=== PATIENT | female | born 1995 | race Caucasian/White ===

== ENCOUNTER 2019-06-04 19:06 | Emergency (ER) | payer MEDICAID, SELFPAY ==
[2019-06-04 19:43] VITALS: BP 107/72; PULSE 120; RESP 18; TEMP 38.4; O2SAT 97; BMI 24.3
[2019-06-04 21:40] LABS: Basophils % 0.2 %; Hematocrit 36.5 % (37.0-47.0); Lymphocytes # 0.4 10^3/uL (0.8-4.8); Lymphocytes % 6.4 %; Mean Corpuscular HGB Conc 32.9 g/dL (30.0-36.0); Mean Corpuscular Hemoglobin 30.5 pg (28.0-34.0); Mean Corpuscular Volume 92.6 fL (81-99); Mean Platelet Volume 9.9 fL (7.4-10.4); Monocytes # 0.2 10^3/uL (0.2-0.9); Neutrophils # 5.4 10^3/uL (1.8-7.7); Neutrophils % 90.1 %; Nucleated Red Blood Cells % 0 %; Platelet Count 264 10^3/cmm (130-400); Red Blood Count 3.94 10^6/uL (4.1-5.3); Red Cell Distribution Width 12.6 % (12.1-15.1); White Blood Count 5.9 10^3/uL (4.0-10.0)
[2019-06-04 21:56] LABS: Alanine Aminotransferase 23 U/L (0-33); Albumin Level 4.4 g/dL (3.5-5.2); Alkaline Phosphatase 79 IU/L (35-105); Anion Gap 17.9 (5-19); Aspartate Amino Transferase 16 U/L (0-32); Blood Urea Nitrogen 8 mg/dL (6-20); Calcium 8.8 mg/dL (8.5-10.5); Carbon Dioxide 23 mmol/L (22-29); Chloride 98 mmol/L (98-107); Globulin 3.2 g/dL (1.3-4.6); Glomerular Filtration Rate 101.1 mL/min (90-130); Glucose 118 mg/dL (65-115); Potassium 3.9 mmol/L (3.5-5.1); Sodium 135 mmol/L (136-145); Total Bilirubin 0.6 mg/dL (0.15-1.2); Total Protein 7.6 g/dL (6.6-8.7)
--- NOTE | 2019-06-04 22:03 | ED_ITS ---
HPI - Fever General: Chief Complaint: Fever Stated Complaint: vomiting Time Seen by Provider: 06/04/19 21:47 History of Present Illness: HPI Narrative: Patient is a 24-year-old female comes into the ED with a fever, cough and nasal congestion. Patient states that symptoms started today when she woke up. Been taking Tylenol today and it has helped reduce the fevers but her temperature then goes back up again. She describes the cough as nonproductive, dry and mild. Nasal drainage started this morning as well. She did say she had one episode of emesis today. She is currently on her period and having some mild cramping. Associated symptoms: Reports nasal congestion and vomiting; Deny abdominal pain, back/flank pain, chills, chest pain, diarrhea, dysuria, headache(s) or nausea Review of Systems Const: Reports: fever; Denies: chills or fatigue Eyes: Denies: change in vision or eye discomfort ENMT: Reports: nasal discharge and nasal congestion; Denies: throat pain or painful swallowing Card: Denies: chest pain, palpitations, edema, swelling of feet/ankles, shortness of breath on exertion or shortness of breath when lying down Resp: Reports: non-productive cough; Denies: shortness of breath or productive cough GI: Reports: vomiting; Denies: abdominal pain, nausea, diarrhea, constipation or blood in stool : Denies: flank pain, painful urination or blood in urine Musc: Denies: neck pain, back pain or extremity swelling Skin/Breast: Denies: rash or new lesion Neuro: Denies: headache, numbness in extremities or weakness in extremities PFS ED PFSH: Social History Smoking and tobacco status: never smoked Female Reproductive History: Date of last menstrual period: 06/04/19 Physical Exam Const: COMMON NORMALS: oriented x3 HENMT: COMMON NORMALS: normocephalic HEAD & SCALP: normocephalic MOUTH: oral and palatal mucosa normal THROAT: posterior oropharynx normal and uvula midline Neck/C-Spine: COMMON NORMALS: supple GENERAL: Yes normal visual inspection Resp: COMMON NORMALS: normal respiratory effort, no retractions, no use of accessory muscles and clear to auscultation bilaterally AUSCULTATION: clear to auscultation bilaterally Cardio: COMMON NORMALS: regular rate, regular rhythm, S1 normal heart sound, S2 normal heart sound, no gallops, no clicks, no murmurs and peripheral pulses 2+ throughout RATE: regular rate RHYTHM: regular rhythm HEART SOUNDS: S1 normal and S2 normal PERIPHERAL PULSES: pulses 2+ throughout GI: COMMON NORMALS: normal to inspection, nondistended, normoactive bowel sounds, soft to palpation, non-tender and no masses PALPATION: Yes soft : COMMON NORMALS: Yes no CVA tenderness BLADDER/KIDNEY EXAM: Yes no CVA tenderness Back/Pelvis: COMMON NORMALS: no CVA tenderness Extremity: COMMON NORMALS: normal to inspection and normal capillary refill Neuro: COMMON NORMALS: oriented x3 and moves all extremities Skin: COMMON NORMALS: no rashes or lesions noted GENERAL SKIN EXAM: no rashes or lesions noted and dry skin Course Vital Signs: Vital signs: Vital Signs Temperature 100 F H 06/04/19 23:32 Pulse Rate 113 H 06/04/19 23:32 Respiratory Rate 16 06/04/19 23:32 Blood Pressure 101/59 06/04/19 23:32 Pulse Oximetry 97 06/04/19 23:32 MDM - Fever Lab Data: Attestation: I reviewed the patient's lab results. Labs: Lab Results 06/04/19 06/04/19 06/04/19 Range/Units 21:27 21:27 21:40 WBC 5.9 (4.0-10.0) 10^3/ uL RBC 3.94 L (4.1-5.3) 10^6/u L Hgb 12.0 (11.5-15.3) g/dL Hct 36.5 L (37.0-47.0) % MCV 92.6 (81-99) fL MCH 30.5 (28.0-34.0) pg MCHC 32.9 (30.0-36.0) g/dL RDW 12.6 (12.1-15.1) % Plt Count 264 (130-400) 10^3/c mm MPV 9.9 (7.4-10.4) fL Neut % (Auto) 90.1 % Lymph % (Auto) 6.4 % [place] % (Auto) 3.0 % Eos % (Auto) 0.0 % Baso % (Auto) 0.2 % Neut # (Auto) 5.4 (1.8-7.7) 10^3/u L Lymph # (Auto) 0.4 L (0.8-4.8) 10^3/u L [place] # (Auto) 0.2 (0.2-0.9) 10^3/u L Eos # (Auto) 0.0 (0.0-0.8) 10^3/u L Baso # (Auto) 0.0 (0.0-0.1) 10^3/u L Nucleated RBC % (a uto) 0 % Nucleated RBCs # 0.0 /100WBC Sodium 135 L (136-145) mmol/L Potassium 3.9 (3.5-5.1) mmol/L Chloride 98 (98-107) mmol/L Carbon Dioxide 23 (22-29) mmol/L Anion Gap 17.9 (5-19) BUN 8 (6-20) mg/dL Creatinine 0.7 (0.5-0.9) mg/dL GFR Calculation 101.1 (90-130) mL/min Glucose 118 H (65-115) mg/dL Calcium 8.8 (8.5-10.5) mg/dL Total Bilirubin 0.6 (0.15-1.2) mg/dL AST 16 (0-32) U/L ALT 23 (0-33) U/L Alkaline Phosphata se 79 (35-105) IU/L Total Protein 7.6 (6.6-8.7) g/dL Albumin 4.4 (3.5-5.2) g/dL Globulin 3.2 (1.3-4.6) g/dL HCG, Qual (Negative) Urine Color (Yellow) Urine Appearance (CLEAR) Urine pH (5-7) Ur Specific Gravit y (1.005-1.030) Urine Protein (Negative) Urine Glucose (UA) (Normal) Urine Ketones (Negative) Urine Blood (Negative) Urine Nitrate (Negative) Urine Bilirubin (NEGATIVE) Urine Urobilinogen (Negative) mg/dL Ur Leukocyte Dolores ase (Negative) Urine RBC (0-2) /hpf Urine WBC (0-5) /hpf Ur Squamous Epith Cells (0-5) Urine Bacteria (NONE) Urine Mucus Influenza Type A A g Negative (Negative) POC Influenza B Ag Negative (Negative) 06/04/19 06/04/19 Range/Units 22:33 22:33 WBC (4.0-10.0) 10^3/ uL RBC (4.1-5.3) 10^6/u L Hgb (11.5-15.3) g/dL Hct (37.0-47.0) % MCV (81-99) fL MCH (28.0-34.0) pg MCHC (30.0-36.0) g/dL RDW (12.1-15.1) % Plt Count (130-400) 10^3/c mm MPV (7.4-10.4) fL Neut % (Auto) % Lymph % (Auto) % [place] % (Auto) % Eos % (Auto) % Baso % (Auto) % Neut # (Auto) (1.8-7.7) 10^3/u L Lymph # (Auto) (0.8-4.8) 10^3/u L [place] # (Auto) (0.2-0.9) 10^3/u L Eos # (Auto) (0.0-0.8) 10^3/u L Baso # (Auto) (0.0-0.1) 10^3/u L Nucleated RBC % (a uto) % Nucleated RBCs # /100WBC Sodium (136-145) mmol/L Potassium (3.5-5.1) mmol/L Chloride (98-107) mmol/L Carbon Dioxide (22-29) mmol/L Anion Gap (5-19) BUN (6-20) mg/dL Creatinine (0.5-0.9) mg/dL GFR Calculation (90-130) mL/min Glucose (65-115) mg/dL Calcium (8.5-10.5) mg/dL Total Bilirubin (0.15-1.2) mg/dL AST (0-32) U/L ALT (0-33) U/L Alkaline Phosphata se (35-105) IU/L Total Protein (6.6-8.7) g/dL Albumin (3.5-5.2) g/dL Globulin (1.3-4.6) g/dL HCG, Qual Negative (Negative) Urine Color Yellow (Yellow) Urine Appearance Clear (CLEAR) Urine pH 5 (5-7) Ur Specific Gravit y 1.010 (1.005-1.030) Urine Protein Neg (Negative) Urine Glucose (UA) Norm (Normal) Urine Ketones 2+ H (Negative) Urine Blood 3+ H (Negative) Urine Nitrate Negative (Negative) Urine Bilirubin Neg (NEGATIVE) Urine Urobilinogen Norm (Negative) mg/dL Ur Leukocyte Dolores ase Negative (Negative) Urine RBC 0-4 H (0-2) /hpf Urine WBC 0-4 H (0-5) /hpf Ur Squamous Epith Cells 5-10 H (0-5) Urine Bacteria 1+ H (NONE) Urine Mucus 2+ Influenza Type A A g (Negative) POC Influenza B Ag (Negative) Discharge Plan Discharge Patient Disposition: Home, Self-Care Clinical Impression: Upper respiratory infection with cough and congestion Condition: Stable Discharge Orders: Discharge Order (Routine); Ordered 06/04/19 Ordered By: Suman Duarte Referrals: Ant Greene FNP [Primary Care Provider] - Lionel Rees MD [Family Provider] - Discharge Diet: Regular Discharge Activity: Resume usual activity Patient Instructions: Upper Respiratory Infection - Adult Activity Restrictions/Additional Instructions: Follow-up with PCP in 7 days for reevaluation. Drink plenty of fluids and stay hydrated. Take Tylenol to help with fevers. He can take [id number] nasal decongestants such as Mucinex to help with nasal congestion. Discharge Date/Time: 06/04/19 23:33 Coding Level of Care Code ED Technology Development Intern for Marcella Fwd Exam Comprehensive
[2019-06-04 22:08] LABS: Influenza A by IFA Negative (Negative); Influenza B by IFA Negative (Negative)
[2019-06-04 22:44] LABS: HCG Qualitative Urine. Negative (Negative)
[2019-06-04 22:52] LABS: Add Urine Microscopic? YES; Bacteria Urine 1+; Bilirubin Urine Neg (NEGATIVE); Blood Urine 3+ (Negative); Glucose Urine UA Norm (Normal); Ketones Urine 2+ (Negative); Leukocyte Esterase Urine Negative (Negative); Mucus Urine 2+; Nitrate Urine Negative (Negative); Protein Urine Neg (Negative); RBC Urine 0-4 /hpf (0-2); Urine Appearance Clear (CLEAR); Urine Color Yellow (Yellow); Urobilinogen Urine Norm (Negative); WBC Urine 0-4 /hpf (0-5); pH Urine 5 (5-7)
[2019-06-04 22:56] VITALS: BP 112/73; PULSE 74; RESP 16; TEMP 37.5; O2SAT 96
[2019-06-04 23:32] VITALS: BP 101/59; PULSE 113; RESP 16; TEMP 37.7; O2SAT 97
== END 2019-06-04 23:33 | disposition home or self-care (01) ==
PROVIDERS: Family Medicine; Emergency Provider Physician Assistant; Family Provider Family Medicine; PCP Nurse Practitioner Family
DX: J06.9 Acute upper respiratory infection, unspecified (principal); R05 Cough; R09.81 Nasal congestion
CPT/HCPCS: 80053; 81001; 81025; 85025; 87804; 99281; 99283; A9270

== ENCOUNTER 2019-11-14 19:02 | Emergency (ER) | payer MEDICAID, SELFPAY ==
[2019-11-14 19:05] VITALS: BP 118/79; PULSE 79; RESP 17; TEMP 36.8; O2SAT 99; BMI 24.2
--- NOTE | 2019-11-14 19:30 | USR_ITS ---
PROCEDURE INFORMATION: Exam: US , Limited Exam date and time: 11/14/2019 8:45 PM Age: 24 years old Clinical indication: complicated by abdominal or pelvic pain; Right lower quadrant; First trimester; Gestational age or lmp: 6w6d; TECHNIQUE: Imaging protocol: Real-time ultrasound of the maternal uterus with image documentation. Exam focused on the clinical indication. COMPARISON: [facility] OB Follow up 01/27/2019 4:22 PM FINDINGS: Gestation: Single live IUP heart rate: 138 bpm BIOMETRY: Gestational age (AUA): 6 week 6 day Estimated due date (AUA): Estimated due date: 07/03/2020 Cavalero-Rump length: 0.88 cm 6 week 6 day MATERNAL: Cervix: Cervix is 3.8 cm in length and closed. US/US OB limited [id number] IMPRESSION: Single live IUP approximately 6 weeks 6 days gestational age.
[2019-11-14 20:12] LABS: Bacteria Urine TRACE; Bilirubin Urine Neg (NEGATIVE); Blood Urine Neg (Negative); Glucose Urine UA Norm (Normal); Ketones Urine Negative (Negative); Leukocyte Esterase Urine Negative (Negative); Nitrate Urine Negative (Negative); Protein Urine Neg (Negative); RBC Urine RARE /hpf (0-2); Squamous Epithelial Cell Urine RARE (0-5); Urine Appearance Clear (CLEAR); Urine Color Straw (Yellow); Urobilinogen Urine Norm (Negative); WBC Urine RARE /hpf (0-5); pH Urine 6.5 (5-7)
[2019-11-14 20:26] LABS: Basophils % 0.6 %; Eosinophils # 0.1 10^3/uL (0.0-0.8); Eosinophils % 1.6 %; Hematocrit 35.4 % (37.0-47.0); Hemoglobin 11.5 g/dL (11.5-15.3); Lymphocytes # 1.8 10^3/uL (0.8-4.8); Lymphocytes % 28.3 %; Mean Corpuscular HGB Conc 32.5 g/dL (30.0-36.0); Mean Corpuscular Hemoglobin 31.6 pg (28.0-34.0); Mean Corpuscular Volume 97.3 fL (81-99); Mean Platelet Volume 10.2 fL (7.4-10.4); Monocytes # 0.4 10^3/uL (0.2-0.9); Monocytes % 5.6 %; Neutrophils # 4.01 10^3/uL (1.8-7.7); Neutrophils % 63.7 %; Nucleated Red Blood Cells % 0 %; Platelet Count 280 10^3/cmm (130-400); Red Blood Count 3.64 10^6/uL (4.1-5.3); Red Cell Distribution Width 12.4 % (12.1-15.1); White Blood Count 6.3 10^3/uL (4.0-10.0)
[2019-11-14 20:44] LABS: Alanine Aminotransferase 17 U/L (0-33); Albumin Level 4.8 g/dL (3.5-5.2); Alkaline Phosphatase 58 IU/L (35-105); Anion Gap 14.1 (5-19); Aspartate Amino Transferase 15 U/L (0-32); Blood Urea Nitrogen 8 mg/dL (6-20); Calcium 9.6 mg/dL (8.5-10.5); Carbon Dioxide 25 mmol/L (22-29); Chloride 101 mmol/L (98-107); Globulin 2.7 g/dL (1.3-4.6); Glomerular Filtration Rate 120.8 mL/min (90-130); Glucose 88 mg/dL (65-115); Lipase 32 U/L (13-60); Osmolality Calculated 277 mOsm/kg (285-295); Potassium 4.1 mmol/L (3.5-5.1); Sodium 136 mmol/L (136-145); Total Bilirubin 0.4 mg/dL (0.15-1.2); Total Protein 7.5 g/dL (6.6-8.7)
== END 2019-11-14 23:40 | disposition left against medical advice (07) ==
LOC: ER 20:55
PROVIDERS: Emergency Medicine; Emergency Provider Emergency Medicine; PCP Family Medicine
DX: Z53.21 Procedure and treatment not carried out due to patient leaving prior to being seen by health care provider (principal)
CPT/HCPCS: 36415; 76815; 80053; 81001; 83690; 84702; 85025; 86900; 99281; 99283

== ENCOUNTER → 2020-01-08 13:26 | Outpatient (BNVA) | payer MEDICAID, SELFPAY | PROVIDERS: PCP Family Medicine; Visit Provider Nurse Practitioner | DX: Z20.828 Contact with and (suspected) exposure to other viral communicable diseases (principal) | CPT/HCPCS: 87635 ==

== ENCOUNTER 2020-04-20 21:20 | Outpatient (CLI) | payer MEDICAID, SELFPAY ==
[2020-04-20] VITALS (7 sets, daily range): PULSE 84–99; O2SAT 97–99; BMI 27.6
== END 2020-04-20 22:25 | disposition home or self-care (01) ==
LOC: OPOB 21:22 → OBGYN 22:07
PROVIDERS: PCP Family Medicine; Visit Provider Family Medicine
DX: O26.899 Other specified pregnancy related conditions, unspecified trimester (principal); Z3A.00 Weeks of gestation of pregnancy not specified; R42 Dizziness and giddiness; R06.02 Shortness of breath
CPT/HCPCS: 99211

== ENCOUNTER 2020-05-20 17:05 | Outpatient (CLI) | payer MEDICAID, SELFPAY ==
[2020-05-20 17:05] VITALS: BMI 29.7
[2020-05-20 17:18] VITALS: BP 119/61; PULSE 110
[2020-05-20 17:24] VITALS: TEMP 36.7
[2020-05-20 17:33] VITALS: BP 114/66; PULSE 107
[2020-05-20 17:39] VITALS: RESP 17
== END 2020-05-20 17:48 | disposition home or self-care (01) ==
LOC: OPOB 17:09 → OBGYN 17:11
PROVIDERS: PCP Family Medicine; Visit Provider Family Medicine
DX: O26.899 Other specified pregnancy related conditions, unspecified trimester (principal); Z3A.00 Weeks of gestation of pregnancy not specified; R10.9 Unspecified abdominal pain
CPT/HCPCS: 59025; 99211

== ENCOUNTER 2020-06-07 10:40 | Outpatient (CLI) | payer MEDICAID, SELFPAY ==
[2020-06-07 10:59] VITALS: BMI 28.8
[2020-06-07 11:00] VITALS: RESP 18; TEMP 37.1
[2020-06-07 11:02] VITALS: BP 136/82; PULSE 111
[2020-06-07 11:03] VITALS: TEMP 37.1
[2020-06-07 11:32] VITALS: BP 128/77; PULSE 99
[2020-06-07 11:42] VITALS: BP 128/77; PULSE 99; RESP 18; TEMP 37.1
== END 2020-06-07 11:40 | disposition home or self-care (01) ==
LOC: OPOB 10:46 → OBGYN 10:47
PROVIDERS: PCP Family Medicine; Visit Provider Family Medicine
DX: O26.899 Other specified pregnancy related conditions, unspecified trimester (principal); Z3A.00 Weeks of gestation of pregnancy not specified; R10.9 Unspecified abdominal pain
CPT/HCPCS: 99211

== ENCOUNTER 2020-06-18 19:05 | Inpatient (IN) | payer MEDICAID, SELFPAY ==
[2020-06-18] VITALS (15 sets, daily range): BP systolic 108–130; BP diastolic 59–74; PULSE 67–93; RESP 15; TEMP 36.3–36.4; O2SAT 96; BMI 29.2
[2020-06-18 19:58] LABS: Basophils % 0.5 %; Eosinophils % 0.5 %; Hematocrit 31.8 % (37.0-47.0); Hemoglobin 10.5 g/dL (11.5-15.3); Lymphocytes # 1.5 10^3/uL (0.8-4.8); Lymphocytes % 26.1 %; Mean Corpuscular Hemoglobin 31.5 pg (28.0-34.0); Mean Corpuscular Volume 95.5 fL (81-99); Mean Platelet Volume 10.6 fL (7.4-10.4); Monocytes # 0.3 10^3/uL (0.2-0.9); Neutrophils # 3.78 10^3/uL (1.8-7.7); Neutrophils % 67.2 %; Nucleated Red Blood Cells % 0 %; Platelet Count 244 10^3/cmm (130-400); Red Blood Count 3.33 10^6/uL (4.1-5.3); Red Cell Distribution Width 13.2 % (12.1-15.1); White Blood Count 5.6 10^3/uL (4.0-10.0)
[2020-06-18] MEDS: miSOPROStol 100 mcg tablet 25 MCG VAGINAL (20:46)
[2020-06-19] VITALS (101 sets, daily range): BP systolic 86–144; BP diastolic 51–92; PULSE 45–109; RESP 15–18; TEMP 36.3–37.1; O2SAT 89–100
[2020-06-19] MEDS: lactated ringers 1,000 ML 999 ML IV (01:05)
[2020-06-19] MEDS: dextrose 5%-lactated ringers 1,000 ML 125 ML IV (02:00)
--- NOTE | 2020-06-19 02:33 | ANES.PREANE2 ---
Pre-Anesthetic Assessment Pre-Anesthetic Assessment: Height/Weight: Height 1.63 m Weight 77.111 kg Temp Pulse Resp BP Pulse Ox 97.3 F L 82 15 116/62 96 06/18/20 23:45 06/19/20 02:30 06/18/20 19:52 06/19/20 02:30 06/19/20 02:28 Preop Diagnosis: Active Labor Proposed Procedure: Labor Epidural Familial anesthetic complications: none Was Beta Syl taken within 24 hours: N/A Last intake: clear liquids 0100 meal 1900 Social: Social History: No alcohol and No tobacco Exam: Pre-Anes Outpt Exam: alert, oriented x 3 and clear to auscultation bilaterally Airway: Submandibular: WNL Cervical ROM: WNL MP: 1 Dentition: Full History/ROS: No significant history except as noted Pulmonary: Pulmonary: None reported CV/HEM: CV/HEM: None reported : : None reported Hepatic: Hepatic: None reported GI: Comments: cholestasis Metabolic: Metabolic: None reported Musc/skel: Musc/skel: None reported Neuropsych: Neuropsych: Anxiety Anesthetic Plan: ASA status: 2 Anesthesia: Anesthesia Evaluation and Regional (specify below) Other: labor epidural Risk of > 500 ml blood loss (7ml/kg in children): No Meds/Allergies Current Medications: Current Medications Generic Name Dose Route Start Last Admin Trade Name Freq PRN Reason Stop Dose Admin Ropivacaine 200 mg in 100 mls @ 13 mls/hr 06/19/20 00:47 06/19/20 02:30 Naropin Premix EPIDURAL 11 mls/hr .Q7H42M PRN Administration PAIN Lactated Ringer's 1,000 mls @ 999 m ls/hr 06/19/20 00:47 06/19/20 01:05 Lactated Ringers IV 999 mls/hr .Q1H1M PRN Administration See label comment s Misoprostol 25 mcg 06/18/20 19:58 06/18/20 20:46 Misoprostol 100 Mcg Tablet VAGINAL 25 mcg ONCE PRN Administration Induction PFSH Anesthesia PFSH: Social History Smoking and tobacco status: never smoked Female Reproductive History: Date of last menstrual period: 09/26/19 : 8 Data Anesthesia CBC & Chem 7: 06/18/20 19:27 Other Labs: Laboratory Results - last 48 hr 06/18/20 19:27 WBC 5.6 RBC 3.33 L Hgb 10.5 L Hct 31.8 L MCV 95.5 MCH 31.5 MCHC 33.0 RDW 13.2 Plt Count 244 MPV 10.6 H Neut % (Auto) 67.2 Lymph % (Auto) 26.1 [place] % (Auto) 5.0 Eos % (Auto) 0.5 Baso % (Auto) 0.5 Neut # (Auto) 3.78 Lymph # (Auto) 1.5 [place] # (Auto) 0.3 Eos # (Auto) 0.0 Baso # (Auto) 0.0 Nucleated RBC % (auto) 0 Nucleated RBCs # 0.0 Cardiac Studies: No Data to Display
--- NOTE | 2020-06-19 02:37 | ANES.PROC ---
Anesthesia Procedures Procedure/Date: 06/19/20 Procedure Narrative: Epidural: Time Out Performed: Yes Consents Signed: Procedure Consent Consent: requested by attending/covering physician, from patient, risks and benefits reviewed and patient agrees to proceed Lumbar Level: L2-L3 Epidural position: sitting Epidural procedure: sterile prep of area, 1% lidocaine to numb the area, 18 g needle, negative for paresthesia passed, test dose given, 1.5% xylocaine 1:200k epi, no systemic response, L.U.D. no apparent complications and 0.2% Ropiavacaine @ mls/hr (11) Other Information: LUL 7cm catheter threaded to 13cm
[2020-06-19] MEDS: oxytocin 30 UNIT/500 ML BAG 600 UNIT IV (05:43)
--- NOTE | 2020-06-19 06:18 | P.PCNOB_ITS ---
Delivery Note: Date of delivery: June 19, 2020 Pre-delivery diagnoses: 8 para 1-0-6-1 at 38 weeks estimated gestational age presenting for induction due to cholestasis of Post- delivery diagnoses: Same Procedure: Spontaneous vaginal delivery Op report anesthesia: Epidural Delivering Physician: Lionel Rees Estimated blood loss (mL): 100 Pre-Delivery Course: The patient presented to the hospital for induction due to cholestasis of at 38 weeks. Otherwise her been unremarkable. Her blood type was a positive. She was GBS negative. Her Covid test was negative. The remainder of her labs were within normal limits. Her cervix was then to be 3 cm dilated. She is placed on Cytotec x1. An epidural was placed. She progressed to complete without difficulty. Delivery: DELIVERY: The patient progressed to complete without difficulty. She delivered a female with a weight of 7 pound 8 ounces with Apgars of 9, 9. The baby was delivered from the SHARONA position. The baby was then completely delivered and placed on the mother's abdomen. The cord was then clamped and cut approximately 1 minute after delivery. There was no nuchal cord. There was no meconium. The placenta and 3 vessel cord were delivered intact shortly thereafter. The perineum and vaginal vault were carefully examined. A left vaginal wall/labia minora laceration was noted which did not require repair. Both the mother and the baby were in stable condition. Post-Delivery Status: Good A&P Assessment and plan (1) Cholestasis of affecting childbirth: Status: Acute (2) Spontaneous vaginal delivery: I anticipate routine care. She appears to be doing very well . No further intervention is necessary for the cholestasis. Status: Acute (3) 38 weeks gestation of : Status: Acute Coding Level of Care Code Acute Hse Specialist for Chg Fwd Diagnoses Cholestasis of affecting childbirth O26.62; K83.1 Spontaneous vaginal delivery O80 38 weeks gestation of Z3A.38
[2020-06-19] MEDS: docusate sodium 100 mg Capsule PO (09:59)
[2020-06-19] MEDS: prenatal vitamin Capsule 1 CAP PO (09:59)
[2020-06-19] MEDS: benzocaine-menthol 78 gm Canister 1 SPRAY TOPICAL (10:00)
[2020-06-19 18:09] LABS: Hematocrit 31.3 % (37.0-47.0); Hemoglobin 10.3 g/dL (11.5-15.3); Mean Corpuscular HGB Conc 32.9 g/dL (30.0-36.0); Mean Corpuscular Hemoglobin 31.5 pg (28.0-34.0); Mean Corpuscular Volume 95.7 fL (81-99); Mean Platelet Volume 10.5 fL (7.4-10.4); Platelet Count 217 10^3/cmm (130-400); Red Blood Count 3.27 10^6/uL (4.1-5.3); Red Cell Distribution Width 13.2 % (12.1-15.1); White Blood Count 9.6 10^3/uL (4.0-10.0)
[2020-06-20 03:38] VITALS: BP 115/68; PULSE 66; TEMP 37.1
--- NOTE | 2020-06-20 07:26 | P.DS_ITS ---
Discharge Providers ANALYTICAL RESEARCH CHEMIST Date of Admission: 06/18/20 19:05 Date of Discharge: 06/20/20 Attending Provider at Admission: Lionel Rees MD Attending Provider at Discharge: Lionel Rees MD Primary Care Provider: Lionel Rees MD Diagnoses at Discharge Discharge Diagnosis (1) Cholestasis of affecting childbirth: Status: Acute (2) Spontaneous vaginal delivery: Status: Acute (3) 38 weeks gestation of : Status: Acute Reason for Visit Reason for Visit: induction Hospital Course Hospital Course The patient presented to the hospital for induction at 38 weeks due to cholestasis of . She was placed on Cytotec 25 mcg x 1. She then progressed to complete and had spontaneous rupture of membranes prior to an unremarkable delivery of a healthy-appearing female infant. She had an epidural. Her course was also unremarkable. Her pain was well controlled. She breast-fed well. Her bleeding was within normal limits. There were no concerns. Information Peripartum Data: Delivery Method: Vaginal Physical Exam Narrative: EXAM NARRATIVE: The patient is alert. She appears comfortable. Her heart has a regular rate and rhythm with no murmurs appreciated. Lungs are clear to auscultation bilaterally. Her fundus is firm and below the umbilicus. Urinary Catheter Management^: Madrigal Latex: Cath Placed During This Visit: yes, but has since been removed by the nurse Reason for Continuing Indwelling Catheter: Decision to DC Catheter Urinary Catheter Date of Insertion: 06/19/20 Urinary Catheter Time of Insertion: 02:52 Date Urinary Catheter Removed: 06/19/20 Time Urinary Catheter Discontinued: 05:38 Discharge Data Data Completed and Pending: Labs from last 24 hours 06/19/20 17:25 WBC 9.6 RBC 3.27 L Hgb 10.3 L Hct 31.3 L MCV 95.7 MCH 31.5 MCHC 32.9 RDW 13.2 Plt Count 217 MPV 10.5 H Vitals: Last Vital Signs Temp 98.8 F 06/20/20 03:38 Pulse 66 06/20/20 03:38 Resp 18 06/19/20 20:00 BP 115/68 06/20/20 03:38 Pulse Ox 97 06/19/20 05:38 Discharge Plan Discharge Patient Disposition: Home Condition: Stable Prescriptions: Continued iron 40 mg Capsule 40 mg PO DAILY RF: 0 1 tab PO DAILY RF: 0 Discontinued ursodiol 250 mg tablet 250 mg PO BID RF: 0 Discharge Orders: Discharge Order (Routine); Ordered 06/20/20 Ordered By: Lionel Rees Referrals: Lionel Rees MD [Primary Care Provider] - 6 Weeks Discharge Diet: Usual diet Discharge Activity: Limit activity as instructed Discharge Attestations ANALYTICAL RESEARCH CHEMIST Time Spent in Discharge Care*: less than 30 min Coding Level of Care Code Acute Crime Lab Technician for Chg Fwd Diagnoses Cholestasis of affecting childbirth O26.62; K83.1 Spontaneous vaginal delivery O80 38 weeks gestation of Z3A.38
[2020-06-20] MEDS: prenatal vitamin Capsule 1 CAP PO (09:22)
[2020-06-20] MEDS: docusate sodium 100 mg Capsule PO (09:22)
[2020-06-20 11:00] VITALS: BP 113/63; PULSE 66; RESP 17; TEMP 36.2
[2020-06-20 11:20] VITALS: BP 113/63; PULSE 66; TEMP 36.2
== END 2020-06-20 11:33 | disposition home or self-care (01) | DRG 805 ==
PROVIDERS: Admitting Provider Family Medicine; PCP Family Medicine; Visit Provider Family Medicine
DX: O26.62 Liver and biliary tract disorders in childbirth (principal); K83.1 Obstruction of bile duct; Z37.0 Single live birth; O70.0 First degree perineal laceration during delivery; Z3A.38 38 weeks gestation of pregnancy
CPT/HCPCS: 12345; 36415; 51702; 59409; 85025; 85027; 98960; J2795

== ENCOUNTER 2020-08-04 19:41 | Emergency (ER) | payer MEDICAID, SELFPAY ==
[2020-08-04 19:46] VITALS: BP 114/98; PULSE 107; RESP 17; TEMP 36.9; O2SAT 99; BMI 26.6
[2020-08-04 20:11] VITALS: BP 131/91; PULSE 110; RESP 18; O2SAT 99
[2020-08-04] MEDS: sodium chloride 0.9% 1,000 ML 999 ML IV (20:17)
[2020-08-04 20:18] LABS: Basophils % 0.4 %; Eosinophils # 0.1 10^3/uL (0.0-0.8); Eosinophils % 0.9 %; Hematocrit 38.5 % (37.0-47.0); Hemoglobin 12.4 g/dL (11.5-15.3); Lymphocytes # 1.5 10^3/uL (0.8-4.8); Lymphocytes % 18.8 %; Mean Corpuscular HGB Conc 32.2 g/dL (30.0-36.0); Mean Corpuscular Hemoglobin 30.8 pg (28.0-34.0); Mean Corpuscular Volume 95.5 fL (81-99); Mean Platelet Volume 9.8 fL (7.4-10.4); Monocytes # 0.5 10^3/uL (0.2-0.9); Monocytes % 5.8 %; Neutrophils # 5.99 10^3/uL (1.8-7.7); Nucleated Red Blood Cells % 0 %; Platelet Count 283 10^3/cmm (130-400); Red Blood Count 4.03 10^6/uL (4.1-5.3); Red Cell Distribution Width 12.7 % (12.1-15.1); White Blood Count 8.1 10^3/uL (4.0-10.0)
[2020-08-04 20:28] LABS: HCG, Serum Qual Negative (Negative)
[2020-08-04 20:33] LABS: Add Urine Microscopic? YES; Bilirubin Urine Neg (Negative); Blood Urine Neg (Negative); Glucose Urine UA Norm (Normal); Ketones Urine Negative (Negative); Leukocyte Esterase Urine 1+ (Negative); Nitrate Urine Negative (Negative); Protein Urine Neg (Negative); Specific Gravity, Urine 1.015 (1.005-1.030); Urine Appearance Clear (CLEAR); Urine Color Yellow (Yellow); Urobilinogen Urine Norm (Negative); pH Urine 5 (5-7)
[2020-08-04 20:36] LABS: Alanine Aminotransferase 20 U/L (0-33); Albumin Level 4.6 g/dL (3.5-5.2); Alkaline Phosphatase 83 IU/L (35-105); Anion Gap 13.5 (5-19); Aspartate Amino Transferase 14 U/L (0-32); Blood Urea Nitrogen 5 mg/dL (6-20); C Reactive Protein 4.9 mg/L (0.0-4.9); Calcium 8.9 mg/dL (8.5-10.5); Carbon Dioxide 26 mmol/L (22-29); Chloride 103 mmol/L (98-107); Globulin 2.8 g/dL (1.3-4.6); Glucose 95 mg/dL (65-115); Lipase 22 U/L (13-60); Osmolality Calculated 285 mOsm/kg (285-295); Potassium 3.5 mmol/L (3.5-5.1); Sodium 139 mmol/L (136-145); Total Bilirubin 0.5 mg/dL (0.15-1.2); Total Protein 7.4 g/dL (6.6-8.7)
[2020-08-04 20:43] LABS: Add Urine Culture? No; Amorphous Sediment Urine TRACE /hpf; Bacteria Urine TRACE /hpf; RBC Urine 0-4 /hpf (0-2); Squamous Epithelial Cell Urine 15-25 /hpf (0-5)
[2020-08-04 21:07] VITALS: BP 109/81; PULSE 91; RESP 16; O2SAT 98
--- NOTE | 2020-08-04 21:07 | PC.NURSE ---
patient stated no pain as long as not moving.
--- NOTE | 2020-08-04 21:20 | USR_ITS ---
PROCEDURE INFORMATION: Exam: US Nonobstetric Pelvis; Complete Exam date and time: 08/04/2020 10:11 PM Age: 25 years old Clinical indication: Pelvic pain; Additional info: Left pelvis pain TECHNIQUE: Imaging protocol: Transabdominal pelvic nonobstetric ultrasound. Complete exam. Real time ultrasound with image documentation. COMPARISON: US pelvic complete* [id number] 09/22/2019 11:19 AM FINDINGS: Uterus/cervix: Uterus is normal and measures 9.3 x 3.6 x 4.4 cm. . Endometrial stripe is normal and measures 7 mm. Right adnexa: Ovary is normal. No mass. Normal blood flow. 3.7 x 1.8 x 2.1 cm. Left adnexa: Ovary is normal. No mass. Normal blood flow. 2.7 by 1.6 x 1.8 cm. Intraperitoneal space: No intraperitoneal fluid. Urinary bladder: Normal. US/US pelvic complete* [id number] IMPRESSION: Negative pelvic ultrasound.
[2020-08-04 21:48] VITALS: BP 110/79; PULSE 90; RESP 16; O2SAT 100
--- NOTE | 2020-08-04 22:24 | W.ED.ABDPA2 ---
HPI - Abdominal Pain General: Chief Complaint: Abdominal Pain Stated Complaint: ab pain Time Seen by Provider: 08/04/20 19:58 History of Present Illness: HPI narrative: 25-year-old female presenting with left lower quadrant pain. She states that she has had the pain for a couple of days. No dysuria. Slight increase in watery discharge. No bleeding. She states that she is late for her period. She has had some diarrhea on and off for a couple of months. She does not know if this is related to the pain. She notes that she does have a history of IBS MD elicited complaint: abdominal pain Pertinent past history: other Pain Consistency: constant Location: LLQ and Suprapubic Severity: moderate Quality: cramping and aching Radiation: none Migration to: no migration Exacerbating factors: movement Relieving factors: other (Remaining still) Associated Symptoms: Reports diarrhea and loose stools; Denies chills, fever(s), hematuria, hematemesis, fecal incontinence and vomiting Related Data: Date of Last Menstrual Period: 07/06/20 Review of Systems Const: Denies: fever(s) or chills Card: Denies: chest pain or palpitations Resp: Denies: dyspnea or productive cough GI: Reports: diarrhea; Denies: vomiting, hematemesis or fecal incontinence : Denies: hematuria Neuro: Denies: headache(s), numbness in extremities or weakness in extremities PFSH ED PFSH: Social History Smoking and tobacco status: never smoked Female Reproductive History: Date of last menstrual period: 07/06/20 Physical Exam Const: GENERAL APPEARANCE: well developed ORIENTATION/CONSCIOUSNESS: Yes oriented to person, Yes oriented to place and Yes oriented to time HENMT: COMMON NORMALS: normocephalic, external ears normal and Normal external nose present HEAD & SCALP: normocephalic; no scalp tenderness FACE & SINUS: normal facial exam NOSE: Normal external nose present and No nasal discharge present EXTERNAL EAR: Yes external ears normal MOUTH: tongue normal TEETH & GINGIVA: no abnormal tooth and associated gingiva THROAT: posterior oropharynx normal; no peritonsillar mass Eye: COMMON NORMALS: Equal, round and reactive pupils present, EOMs intact bilaterally and conjunctivae normal EYELID: eyelids normal CONJUNCTIVA: Yes conjunctivae normal PUPIL: Yes Equal, round and reactive pupils present Neck/C-Spine: COMMON NORMALS: full ROM GENERAL: No tracheal deviation CERVICAL SPINE: Yes normal cervical lordosis and No Cervical spine tenderness Chest: COMMONS NORMALS: normal inspection of the chest CHEST: No tenderness Resp: COMMON NORMALS: clear to auscultation bilaterally EFFORT & INSPECTION: No tachypneic, No respiratory distress, No retractions, No uses accessory muscles and No tracheal deviation AUSCULTATION: clear to auscultation bilaterally, no rhonchi, no wheezes and lung sounds not diminished Cardio: COMMON NORMALS: regular rate and regular rhythm RATE: regular rate RHYTHM: regular rhythm HEART SOUNDS: no murmurs PERIPHERAL PULSES: radial pulses present GI: INSPECTION: No abdominal distension AUSCULTATION: No Hyperactive bowel sounds present and No Hypoactive bowel sounds present PALPATION: Yes Tenderness to palpation present (GI) (suprapubic) Details: LLQ, Yes Guarding due to palpation present (GI) and No Rigid due to palpation PERCUSSION: no dullness to percussion and no tympanic to percussion : COMMON NORMALS: Yes no CVA tenderness BLADDER/KIDNEY EXAM: Yes no CVA tenderness Back/Pelvis: COMMON NORMALS: no CVA tenderness Neuro: SENSORIUM/ORIENTATION: Yes oriented to person, Yes oriented to place and Yes oriented to time Psych: COMMON NORMALS: mental status grossly normal Skin: COMMON NORMALS: no rashes or lesions noted GENERAL SKIN EXAM: no rashes or lesions noted Course Vital Signs: Vital signs: Vital Signs Temperature 98.4 F 08/04/20 19:46 Pulse Rate 90 08/04/20 21:48 Respiratory Rate 16 08/04/20 21:48 Blood Pressure 110/79 08/04/20 21:48 Pulse Oximetry 100 08/04/20 21:48 MDM - Abdominal Pain MDM Narrative: Medical decision making narrative: 25-year-old female with left lower quadrant and suprapubic pain. Her white blood cell count is 8.1. Her CRP is not elevated. Her other laboratory is benign. She does have urinary tract infection on urinalysis. Urine will be sent for chlamydia and gonorrhea. Her serum is negative. We will treat her UTI. Colic ultrasound revealed a normal ovary with good blood flow, no masses Lab Data: Labs: Lab Results 08/04/20 08/04/20 08/04/20 Range/Units 20:09 20:09 20:09 WBC 8.1 (4.0-10.0) 10^3/ uL RBC 4.03 L (4.1-5.3) 10^6/u L Hgb 12.4 (11.5-15.3) g/dL Hct 38.5 (37.0-47.0) % MCV 95.5 (81-99) fL MCH 30.8 (28.0-34.0) pg MCHC 32.2 (30.0-36.0) g/dL RDW 12.7 (12.1-15.1) % Plt Count 283 (130-400) 10^3/c mm MPV 9.8 (7.4-10.4) fL Neut % (Auto) 74.0 % Lymph % (Auto) 18.8 % [place] % (Auto) 5.8 % Eos % (Auto) 0.9 % Baso % (Auto) 0.4 % Neut # (Auto) 5.99 (1.8-7.7) 10^3/u L Lymph # (Auto) 1.5 (0.8-4.8) 10^3/u L [place] # (Auto) 0.5 (0.2-0.9) 10^3/u L Eos # (Auto) 0.1 (0.0-0.8) 10^3/u L Baso # (Auto) 0.0 (0.0-0.1) 10^3/u L Nucleated RBC % (a uto) 0 % Nucleated RBCs # 0.0 /100WBC Sodium 139 (136-145) mmol/L Potassium 3.5 (3.5-5.1) mmol/L Chloride 103 (98-107) mmol/L Carbon Dioxide 26 (22-29) mmol/L Anion Gap 13.5 (5-19) BUN 5 L (6-20) mg/dL Creatinine 0.5 (0.5-0.9) mg/dL GFR Calculation 148.0 H (90-130) mL/min Glucose 95 (65-115) mg/dL Calculated Osmolal ity 285 (285-295) mOsm/k g Calcium 8.9 (8.5-10.5) mg/dL Total Bilirubin 0.5 (0.15-1.2) mg/dL AST 14 (0-32) U/L ALT 20 (0-33) U/L Alkaline Phosphata se 83 (35-105) IU/L C-Reactive Protein 4.9 (0.0-4.9) mg/L Total Protein 7.4 (6.6-8.7) g/dL Albumin 4.6 (3.5-5.2) g/dL Globulin 2.8 (1.3-4.6) g/dL Lipase 22 (13-60) U/L HCG, Qual Negative (Negative) Urine Color (Yellow) Urine Appearance (CLEAR) Urine pH (5-7) Ur Specific Gravit y (1.005-1.030) Urine Protein (Negative) Urine Glucose (UA) (Normal) Urine Ketones (Negative) Urine Blood (Negative) Urine Nitrate (Negative) Urine Bilirubin (Negative) Urine Urobilinogen (Negative) mg/dL Ur Leukocyte Dolores ase (Negative) Urine RBC (0-2) /hpf Urine WBC (0-5) /hpf Ur Squamous Epith Cells (0-5) /hpf Amorphous Sediment /hpf Urine Bacteria (NONE) /hpf 08/04/20 Range/Units 20:09 WBC (4.0-10.0) 10^3/ uL RBC (4.1-5.3) 10^6/u L Hgb (11.5-15.3) g/dL Hct (37.0-47.0) % MCV (81-99) fL MCH (28.0-34.0) pg MCHC (30.0-36.0) g/dL RDW (12.1-15.1) % Plt Count (130-400) 10^3/c mm MPV (7.4-10.4) fL Neut % (Auto) % Lymph % (Auto) % [place] % (Auto) % Eos % (Auto) % Baso % (Auto) % Neut # (Auto) (1.8-7.7) 10^3/u L Lymph # (Auto) (0.8-4.8) 10^3/u L [place] # (Auto) (0.2-0.9) 10^3/u L Eos # (Auto) (0.0-0.8) 10^3/u L Baso # (Auto) (0.0-0.1) 10^3/u L Nucleated RBC % (a uto) % Nucleated RBCs # /100WBC Sodium (136-145) mmol/L Potassium (3.5-5.1) mmol/L Chloride (98-107) mmol/L Carbon Dioxide (22-29) mmol/L Anion Gap (5-19) BUN (6-20) mg/dL Creatinine (0.5-0.9) mg/dL GFR Calculation (90-130) mL/min Glucose (65-115) mg/dL Calculated Osmolal ity (285-295) mOsm/k g Calcium (8.5-10.5) mg/dL Total Bilirubin (0.15-1.2) mg/dL AST (0-32) U/L ALT (0-33) U/L Alkaline Phosphata se (35-105) IU/L C-Reactive Protein (0.0-4.9) mg/L Total Protein (6.6-8.7) g/dL Albumin (3.5-5.2) g/dL Globulin (1.3-4.6) g/dL Lipase (13-60) U/L HCG, Qual (Negative) Urine Color Yellow (Yellow) Urine Appearance Clear (CLEAR) Urine pH 5 (5-7) Ur Specific Gravit y 1.015 (1.005-1.030) Urine Protein Neg (Negative) Urine Glucose (UA) Norm (Normal) Urine Ketones Negative (Negative) Urine Blood Neg (Negative) Urine Nitrate Negative (Negative) Urine Bilirubin Neg (Negative) Urine Urobilinogen Norm (Negative) mg/dL Ur Leukocyte Dolores ase 1+ H (Negative) Urine RBC 0-4 H (0-2) /hpf Urine WBC 5-10 H (0-5) /hpf Ur Squamous Epith Cells 15-25 H (0-5) /hpf Amorphous Sediment Trace /hpf Urine Bacteria Trace (NONE) /hpf Discharge Plan Discharge Patient Disposition: Home Clinical Impression: Abdominal pain Qualifiers: Abdominal location: left lower quadrant Qualified Code(s): R10.32 - Left lower quadrant pain Urinary tract infection Qualifiers: Urinary tract infection type: acute cystitis Hematuria presence: without hematuria Qualified Code(s): N30.00 - Acute cystitis without hematuria Condition: Stable Prescriptions: New Bactrim DS 800-160 mg tablet 1 tab PO BID 5 Days Qty: 10 RF: 0 No Action iron 40 mg Capsule 40 mg PO DAILY RF: 0 1 tab PO DAILY RF: 0 Discharge Orders: Discharge ED (Routine); Ordered 08/04/20 Ordered By: Hubert Campbell Referrals: Lionel Rees MD [Primary Care Provider] - 1-3 days Discharge Diet: Advance as tolerated Discharge Activity: Increase activity as tolerated Patient Instructions: Urinary Tract Infection in Women (ED), Abdominal Pain (ED) Activity Restrictions/Additional Instructions: Return for worsening pain despite treatment, fever greater than 100, vomiting liquids or medications, other concerning symptoms peer Coding Level of Care Code ED Laborer Concrete Paving for Chg Fwd Exam Comprehensive
[2020-08-04 23:07] VITALS: BP 113/90; PULSE 90; RESP 16; O2SAT 97
== END 2020-08-04 23:58 | disposition home or self-care (01) ==
PROVIDERS: Emergency Provider Emergency Medicine; PCP Family Medicine
DX: N30.00 Acute cystitis without hematuria (principal)
CPT/HCPCS: 76856; 80053; 81001; 83690; 84703; 85025; 86140; 87491; 87591; 87661; 96360; 99283; J7030

== ENCOUNTER 2021-05-14 14:21 | Outpatient (CLI) | payer MEDICAID, SELFPAY ==
[2021-05-14 14:27] LABS: D Dimer 0.75 ug/mIFEU (0-0.59)
== END 2021-05-14 14:22 | disposition home or self-care (01) ==
LOC: LAB 14:24
PROVIDERS: PCP Family Medicine; Visit Provider Nurse Practitioner
DX: R07.9 Chest pain, unspecified (principal)
CPT/HCPCS: 85378

== ENCOUNTER 2021-05-15 13:02 | Emergency (ER) | payer MEDICAID, SELFPAY ==
[2021-05-15 13:22] VITALS: BP 127/76; PULSE 99; RESP 16; TEMP 37; O2SAT 98; BMI 24.0
[2021-05-15 15:20] LABS: Basophils % 0.7 %; Eosinophils # 0.1 10^3/uL (0.0-0.8); Eosinophils % 2.5 %; Hemoglobin 11.4 g/dL (11.5-15.3); Lymphocytes # 1.4 10^3/uL (0.8-4.8); Lymphocytes % 32.2 %; Mean Corpuscular HGB Conc 31.7 g/dL (30.0-36.0); Mean Corpuscular Volume 94.7 fl (81-99); Mean Platelet Volume 10.4 fL (7.4-10.4); Monocytes # 0.4 10^3/uL (0.2-0.9); Monocytes % 7.9 %; Neutrophils % 56.7 %; Nucleated Red Blood Cells % 0 %; Platelet Count 265 10^3/cmm (130-400); Red Cell Distribution Width 12.3 % (12.1-15.1); White Blood Count 4.4 10^3/uL (4.0-10.0)
[2021-05-15 15:36] LABS: HCG, Serum Qual Negative (Negative)
[2021-05-15 15:38] LABS: D Dimer 0.79 ug/mIFEU (0-0.59)
[2021-05-15 15:47] LABS: Alanine Aminotransferase 37 U/L (0-33); Albumin Level 4.3 g/dL (3.5-5.2); Alkaline Phosphatase 93 IU/L (35-105); Anion Gap 14.7 (5-19); Aspartate Amino Transferase 25 U/L (0-32); Blood Urea Nitrogen 5 mg/dL (6-20); Calcium 9.2 mg/dL (8.5-10.5); Carbon Dioxide 24 mmol/L (22-29); Chloride 106 mmol/L (98-107); Globulin 3.1 g/dL (1.3-4.6); Glomerular Filtration Rate 146.9 mL/min (90-130); Glucose 83 mg/dL (65-115); Osmolality Calculated 288 mOsm/kg (285-295); Potassium 3.7 mmol/L (3.5-5.1); Sodium 141 mmol/L (136-145); Total Bilirubin 0.3 mg/dL (0.15-1.2); Total Protein 7.4 g/dL (6.6-8.7)
--- NOTE | 2021-05-15 16:08 | CTR_ITS ---
PROCEDURE INFORMATION: Exam: CTA Chest With Contrast Exam date and time: 05/15/2021 4:08 PM Age: 26 years old Clinical indication: Abnormal findings; Abnormal diagnostic tests; Elevated d-dimer; Shortness of breath; Patient HX: HX of cervical cancer; Additional info: SOB, elevated d dimer. Recent covid. TECHNIQUE: Imaging protocol: Computed tomographic angiography of the chest with contrast. 3D rendering (Not supervised by radiologist): MIP and/or 3D reconstructed images were created by the technologist. Radiation optimization: All CT scans at this facility use at least one of these dose optimization techniques: automated exposure control; mA and/or kV adjustment per patient size (includes targeted exams where dose is matched to clinical indication); or iterative reconstruction. Contrast material: OMNI 350; Contrast volume: 74 ml; Contrast route: INTRAVENOUS (IV); COMPARISON: CR XR chest 2V* [id number] 05/14/2021 9:31 AM RADIATION DOSE METRICS: Total DLP (mGy-cm): 504.13 FINDINGS: Pulmonary arteries: Normal. No pulmonary emboli. Aorta: Unremarkable. No aortic aneurysm. No aortic dissection. Lungs: Patulous ground-glass opacities within the left lung. Pleural spaces: Unremarkable. No pneumothorax. No pleural effusion. Heart: Unremarkable. No cardiomegaly. No pericardial effusion. Lymph nodes: Unremarkable. No enlarged lymph nodes. Bones/joints: Unremarkable. No acute fracture. Soft tissues: Unremarkable. CT/CT angio chest PE protcl [id number] IMPRESSION: 1. Negative for pulmonary embolism. 2. Patulous ground-glass opacities within the left lung consistent with COVID pneumonia.
[2021-05-15] MEDS: iohexol 350 mg/mL 100 mL Btl IV (16:57)
--- NOTE | 2021-05-15 17:15 | ED_ITS ---
HPI - SOB/Dyspnea General: Chief Complaint: Shortness of Breath/Dyspnea Stated Complaint: SOB Time Seen by Provider: 05/15/21 17:13 History of Present Illness: HPI Narrative: 26-year-old female was sent over from [facility] medical office for concerns of abnormal chest x-ray, chest discomfort, and shortness of breath. Patient recently been diagnosed with COVID-19 and has been improving she reports with some improvement of symptoms today but some persistent shortness of breath with activity and some left-sided chest discomfort. Patient appears nontoxic. Patient appears in no pain at rest. Associated symptoms: Reports chest pain Review of Systems Card: Reports: chest pain Resp: Reports: dyspnea and non-productive cough [facility] ED PFSH: Social History Smoking and tobacco status: never smoked Female Reproductive History: Date of last menstrual period: 07/06/20 Physical Exam Const: COMMON NORMALS: alert HENMT: COMMON NORMALS: normocephalic and TM's normal bilaterally HEAD & SCALP: normocephalic TYMPANIC MEMBRANE: TM's normal bilaterally Resp: COMMON NORMALS: normal respiratory effort AUSCULTATION: diminished lung sounds Cardio: COMMON NORMALS: regular rate and regular rhythm RATE: regular rate RHYTHM: regular rhythm Extremity: COMMON NORMALS: normal to inspection Neuro: SENSORIUM/ORIENTATION: Yes alert Psych: COMMON NORMALS: cooperative Skin: COMMON NORMALS: no rashes or lesions noted GENERAL SKIN EXAM: no rashes or lesions noted Course Vital Signs: Vital signs: Vital Signs Temperature 98.6 F 05/15/21 13:22 Pulse Rate 99 05/15/21 13:22 Respiratory Rate 16 05/15/21 13:22 Blood Pressure 127/76 05/15/21 13:22 Pulse Oximetry 98 05/15/21 13:22 MDM - SOB/Dyspnea Medical Decision Making 26-year-old female was referred to the ER for evaluation due to shortness of breath, and chest discomfort. Patient recently had COVID-19 but has had residual symptoms. On exam patient appears nontoxic, no pain, lungs are decreased without any obvious adventitious sounds. Heart rates regular. No s igns of edema or swelling in the lower extremities. Abdomen soft nontender. Differential diagnosis includes but not limited to COVID-19 pneumonia, PE, pleurisy. Chest x-ray done at [facility] yesterday did note some infiltrate in the left middle lung. Laboratory values were unremarkable except for a D- dimer of 0.7. CTA of the chest ruled out pulmonary embolism but did note a COVID-19 appearing pneumonia in the left middle lung area. Reviewed exam with patient with recommendations for use of inhaler as needed for shortness of breath. Encourage plenty of water and activity as tolerated. Reassured patient there is no sign of pulmonary embolism reviewed red flags such as high fever, wo rsening shortness of breath or chest pain, and blood in sputum for need to return to the ER. Patient reported understanding and agreed to plan. Lab Data : 05/15/21 15:04 05/15/21 15:04 Labs/Radiology: Radiology Impressions Chest CTA 05/15/21 16:08 IMPRESSION: 1. Negative for pulmonary embolism. 2. Patulous ground-glass opacities within the left lung consistent with COVID pneumonia. Laboratory Results WBC 4.4 10^3/uL (4.0-10.0) 05/15/21 15:04 RBC 3.80 10^6/uL (4.1-5.3) L 05/15/21 15:04 Hgb 11.4 g/dL (11.5-15.3) L 05/15/21 15:04 Hct 36.0 % (37.0-47.0) L 05/15/21 15:04 MCV 94.7 fl (81-99) 05/15/21 15:04 MCH 30.0 pg (28.0-34.0) 05/15/21 15:04 MCHC 31.7 g/dL (30.0-36.0) 05/15/21 15:04 RDW 12.3 % (12.1-15.1) 05/15/21 15:04 Plt Count 265 10^3/cmm (130-400) 05/15/21 15:04 MPV 10.4 fL (7.4-10.4) 05/15/21 15:04 Neut % (Auto) 56.7 % 05/15/21 15:04 Lymph % (Auto) 32.2 % 05/15/21 15:04 [place] % (Auto) 7.9 % 05/15/21 15:04 Eos % (Auto) 2.5 % 05/15/21 15:04 Baso % (Auto) 0.7 % 05/15/21 15:04 Neut # (Auto) 2.50 10^3/uL (1.8-7.7) 05/15/21 15:04 Lymph # (Auto) 1.4 10^3/uL (0.8-4.8) 05/15/21 15:04 [place] # (Auto) 0.4 10^3/uL (0.2-0.9) 05/15/21 15:04 Eos # (Auto) 0.1 10^3/uL (0.0-0.8) 05/15/21 15:04 Baso # (Auto) 0.0 10^3/uL (0.0-0.1) 05/15/21 15:04 Nucleated RBC % (auto) 0 % 05/15/21 15:04 Nucleated RBCs # 0.0 /100WBC 05/15/21 15:04 D-Dimer 0.79 ug/mIFEU (0-0.59) H 05/15/21 15:04 Sodium 141 mmol/L (136-145) 05/15/21 15:04 Potassium 3.7 mmol/L (3.5-5.1) 05/15/21 15:04 Chloride 106 mmol/L (98-107) 05/15/21 15:04 Carbon Dioxide 24 mmol/L (22-29) 05/15/21 15:04 Anion Gap 14.7 (5-19) 05/15/21 15:04 BUN 5 mg/dL (6-20) L 05/15/21 15:04 Creatinine 0.5 mg/dL (0.5-0.9) 05/15/21 15:04 GFR Calculation 146.9 mL/min (90-130) H 05/15/21 15:04 Glucose 83 mg/dL (65-115) 05/15/21 15:04 Calculated Osmolality 288 mOsm/kg (285-295) 05/15/21 15:04 Calcium 9.2 mg/dL (8.5-10.5) 05/15/21 15:04 Total Bilirubin 0.3 mg/dL (0.15-1.2) 05/15/21 15:04 AST 25 U/L (0-32) 05/15/21 15:04 ALT 37 U/L (0-33) H 05/15/21 15:04 Alkaline Phosphatase 93 IU/L (35-105) 05/15/21 15:04 Total Protein 7.4 g/dL (6.6-8.7) 05/15/21 15:04 Albumin 4.3 g/dL (3.5-5.2) 05/15/21 15:04 Globulin 3.1 g/dL (1.3-4.6) 05/15/21 15:04 HCG, Qual Negative (Negative) 05/15/21 15:04 Discharge Plan Discharge Patient Disposition: Home Clinical Impression: Pneumonia due to 2019 novel coronavirus Condition: Stable Prescriptions: New albuterol sulfate 90 mcg/actuation aerosol powdr breath activated 2 inh inhalation Q4H PRN (Reason: shortness of breath or wheezing) Qty: 1 0RF No Action iron 40 mg Capsule 40 mg PO DAILY 0RF 1 tab PO DAILY 0RF amoxicillin 875 mg tablet 875 mg PO Q12H Qty: 14 0RF Discharge Orders: Discharge ED (Routine); Ordered 05/15/21 Ordered By: Ashok King Referrals: Lionel Rees MD [Primary Care Provider] - Discharge Diet: Usual diet Discharge Activity: Increase activity as tolerated Patient Instructions: Viral Pneumonia (ED) Activity Restrictions/Additional Instructions: Home and rest. Drink plenty of water. Increase activity as tolerated. Use albuterol inhaler 2 inhalations every 4 hours as needed for cough, wheezing, shortness of breath. Monitor for elevation and fever greater than 100.4, severe chest pain, or blood in sputum. Return to the ER for these signs and symptoms. Follow-up with primary care in 1 week for recheck. Coding Level of Care Code ED Events Administrative Assistant for Marcella Chavez
[2021-05-15 17:52] VITALS: BP 112/76; PULSE 87; RESP 18; O2SAT 98
[2021-05-18 11:06] LABS: Quest SARS-CoV-2 RNA NOT DETECTED (NOT DETECTED)
--- NOTE | 2021-05-18 17:11 | PC.NURSE ---
Notified pt of negative COVID test
== END 2021-05-15 17:55 | disposition home or self-care (01) ==
PROVIDERS: Physician Assistant; Emergency Provider Nurse Practitioner Family; PCP Family Medicine
DX: U07.1 COVID-19 (principal); J12.82 Pneumonia due to coronavirus disease 2019
CPT/HCPCS: 71275; 80053; 84703; 85025; 85378; 87635; 99283; Q9967

== ENCOUNTER 2021-07-23 13:08 | Outpatient (CLI) | payer MEDICAID, SELFPAY ==
--- NOTE | 2021-07-23 13:18 | US_ITS ---
WS: [id number] ULTRASOUND BREAST LEFT TECHNIQUE: Ultrasound left breast focused area of concern. CLINICAL INFORMATION: BREAST TENDERNESS COMPARISON: None. FINDINGS: Ultrasound LEFT breast at the 3:00 position in the patient directed area. Normal underlying dense par enchymal tissue. No cystic or solid lesions visualized today. No suspicious findings. Findings are be nign. US/US breast LT limited* [id number] IMPRESSION: Normal exam
== END 2021-07-23 13:09 | disposition home or self-care (01) ==
LOC: RAD 13:10
PROVIDERS: PCP Family Medicine; Visit Provider Family Medicine
DX: N64.4 Mastodynia (principal)
CPT/HCPCS: 76642

== ENCOUNTER → 2021-10-08 09:00 | Outpatient (BNVA) | payer MEDICAID, SELFPAY | PROVIDERS: PCP Family Medicine; Visit Provider Obstetrics & Gynecology | DX: N89.8 Other specified noninflammatory disorders of vagina (principal); N87.1 Moderate cervical dysplasia | CPT/HCPCS: 87491; 87591 ==

== ENCOUNTER 2021-11-25 14:09 | Outpatient (CLI) | payer MEDICAID, SELFPAY ==
[2021-11-25 14:38] LABS: Add Urine Microscopic? NO; Charge for UA Resulting for Rev
[2021-11-25 14:45] LABS: Basophils # 0.1 10^3/uL (0.0-0.1); Basophils % 1.2 %; Eosinophils # 0.1 10^3/uL (0.0-0.8); Eosinophils % 2.9 %; Hematocrit 38.1 % (37.0-47.0); Hemoglobin 12.3 g/dL (11.5-15.3); Lymphocytes # 1.7 10^3/uL (0.8-4.8); Lymphocytes % 39.6 %; Mean Corpuscular HGB Conc 32.3 g/dL (30.0-36.0); Mean Corpuscular Hemoglobin 30.6 pg (28.0-34.0); Mean Corpuscular Volume 94.8 fl (81-99); Mean Platelet Volume 9.9 fL (7.4-10.4); Monocytes # 0.3 10^3/uL (0.2-0.9); Monocytes % 6.2 %; Neutrophils # 2.08 10^3/uL (1.8-7.7); Neutrophils % 49.9 %; Nucleated Red Blood Cells % 0 %; Platelet Count 290 10^3/cmm (130-400); Red Blood Count 4.02 10^6/uL (4.1-5.3); Red Cell Distribution Width 12.8 % (12.1-15.1); White Blood Count 4.2 10^3/uL (4.0-10.0)
[2021-11-25 14:48] LABS: HCG Qualitative Urine. Negative (Negative)
[2021-11-25 14:54] LABS: Bilirubin Urine Neg (Negative); Blood Urine Neg (Negative); Glucose Urine UA Norm (Normal); Ketones Urine Negative (Negative); Leukocyte Esterase Urine Negative (Negative); Nitrate Urine Negative (Negative); Protein Urine Neg (Negative); Urine Appearance Clear (CLEAR); Urine Color Colorless (Yellow); Urobilinogen Urine Norm (Negative); pH Urine 7 (5-7)
[2021-11-25 15:17] LABS: Alanine Aminotransferase 18 U/L (0-33); Alkaline Phosphatase 87 U/L (35-105); Aspartate Amino Transferase 19 U/L (0-32); Blood Urea Nitrogen 7 mg/dL (6-20); Calcium 9.4 mg/dL (8.5-10.5); Carbon Dioxide 28 mmol/L (22-29); Chloride 101 mmol/L (98-107); Globulin 2.8 g/dL (1.3-4.6); Glomerular Filtration Rate 146.9 mL/min (90-130); Glucose 87 mg/dL (65-115); Osmolality Calculated 287 mOsm/kg (285-295); Sodium 140 mmol/L (136-145); Total Bilirubin 0.5 mg/dL (0.15-1.2); Total Protein 7.8 g/dL (6.6-8.7)
[2021-11-25 15:24] LABS: Anion Gap 15.1 (5-19); Potassium 4.1 mmol/L (3.5-5.1)
== END 2021-11-25 14:10 | disposition home or self-care (01) ==
LOC: LAB 14:12
PROVIDERS: PCP Family Medicine; Visit Provider Obstetrics & Gynecology
DX: Z01.812 Encounter for preprocedural laboratory examination (principal); N87.1 Moderate cervical dysplasia
CPT/HCPCS: 36415; 80053; 81003; 81025; 85025; 86850; 86900

== ENCOUNTER 2021-11-27 05:50 | Day surgery (SDC) | payer MEDICAID, SELFPAY ==
[2021-11-21 13:29] VITALS: BMI 23.1
--- NOTE | 2021-11-21 14:22 | ANES.PREANE2 ---
Pre-Anesthetic Assessment Height/Weight: Height 1.63 m Weight 61.235 kg Preop Diagnosis: Active Labor Operation Date: 11/27/21 10:35 Proposed Procedures p Cervical cone biopsy 71494,N87.1(Not Applicable) - Manjinder Hsieh MD Familial anesthetic complications: None Was Beta Syl taken within 24 hours: N/A Was Clonidine taken within 24 hours: N/A Social No alcohol and No tobacco Exam alert, oriented x 3, clear to auscultation bilaterally and regular rate & rhythm Airway Submandibular: within normal limits Cervical ROM: within normal limits Mallampati: Class I Dentition: full History/ROS No significant complaints Pulmonary None reported CV/HEM Anemia None reported Hepatic None reported GI Gastroesophageal Reflux Disease Occasional hematochezia Metabolic None reported Musc/skel None reported Neuropsych None reported Anesthetic Plan ASA status: 1 Anesthesia: Anesthesia Evaluation, General and MAC Other: We discussed risk and benefits of general anesthesia including PONV, sore throat (sometimes severe), corneal abrasion, positioning and peripheral nerve injuries, life threatening allergic reaction, post operative ICU admission requiring prolonged intubation, aspiration, stroke, heart attack, , and rare incidences of recall. I discussed with the patient risks, goals, and benefits of MAC and general anesthesia. We discussed spectrum of MAC anesthesia including conversion to general as well as possibility of recall of intraoperative stimuli including discomfort/pain. Patient consents to MAC or General pending further discussion with surgeon. Risk of > 500 ml blood loss (7ml/kg in children): No Medications/Allergies Home Medications Medication Instructions Recorded Confirmed Last Taken Type iron 40 mg capsule 40 mg PO DAILY 06/18/20 11/21/21 06/18/20 16:00 History cholecalciferol (vitamin D3) 1 cap PO DAILY 10/08/21 11/21/21 Unknown History surmktmi-eidnogl-wtvn-lutein tablet 1 tab PO DAILY 10/08/21 11/21/21 Unknown History zinc acetate 1 tab PO .daily 10/08/21 11/21/21 Unknown History Allergies Allergy/AdvReac Type Severity Reaction Status Date / Time divalproex sodium Allergy Severe increased Verified 11/21/21 13:27 [From Depakote] anxiety ibuprofen Allergy Severe GI side Verified 11/21/21 13:27 effects metronidazole Allergy Severe Hives Verified 11/21/21 13:27 esomeprazole [From Nexium] Allergy Intermediate GI side Verified 11/21/21 13:27 effects [facility] Anesthesia Medical History Psychiatric care Family History (Updated 10/08/21 @ 08:11 by Kelsie Delgado RN) Mother Hypertension Diabetes Grandmother Thyroid condition maternal Colon cancer maternal great, late 80's Denies family history of Ovarian cancer Clotting disorder Heart disease Hyperlipidemia Anesthesia complication Bleeding disorder Uterine cancer Stroke Female Reproductive History Date of last menstrual period: 11/15/21 Data Anesthesia Cardiac Studies: No Data to Display
[2021-11-27] VITALS (7 sets, daily range): BP systolic 103–132; BP diastolic 47–79; PULSE 72–97; RESP 13–18; TEMP 36.1–36.7; O2SAT 96–100
[2021-11-27] MEDS: scopolamine 1.5 Patch 1 PATCH TRANSDERMA (06:36)
[2021-11-27] MEDS: sodium chloride 0.9% 500 ML IV (06:36)
--- NOTE | 2021-11-27 06:57 | W.PM.OPSUD ---
Surgery/Procedure H&P Update DATE OF PROCEDURE: November 27, 2021 DATE H&P PERFORMED: 11/25/21 H&P UPDATE INFORMATION: I have reviewed H&P completed within last 30 days, I have examined patient prior to procedure and No changes to prior documentation PREOP DIAGNOSIS: MARTHA-2 PLANNED PROCEDURE: Operation Date: 11/27/21 07:00 Proposed Procedures p Cervical cone biopsy [id number],N87.1(Not Applicable) - Manjinder Hsieh MD
[2021-11-27] MEDS: ceFAZolin 2,000 MG in sodium chloride 0.9% (plus) 50 ML 100 MG IV (07:00)
--- NOTE | 2021-11-27 07:16 | P.ANESUD_ITS ---
Pre-Anesthetic Update Pre-Anesthetic Assessment: Date of Surgery/Procedure: 11/27/21 Preop Paulette gnosis: MARTHA-2 Proposed Procedure: Operation Date: 11/27/21 07:00 Proposed Procedures p Cervical cone biopsy [id number],N87.1(Not Applicable) - Manjinder Hsieh MD Any changes to Pre-Anesthetic Assessment?: No Last Intake: Intake Last Liquid Date 11/26/21 Last Liquid Time 22:45 Last Solid Date 11/26/21 Last Solid Time 23:45 Vitals: Temperature 98.0 F 11/27/21 06:11 Temperature Source Temporal Artery S can 11/27/21 06:11 Pulse Rate 72 11/27/21 06:11 Respiratory Rate 18 11/27/21 06:11 Blood Pressure 122/79 11/27/21 06:11 Blood Pressure Megan n 93 11/27/21 06:11 Pulse Oximetry 99 11/27/21 06:11 Oxygen Delivery Me thod 11/27/21 06:14 Exam: Pre-Anes Outpt Exam: alert, oriented x 3, clear to auscultation bilaterally and regular rate & rhythm Cardiac Studies: No Data to Display
[2021-11-27] MEDS: sodium chloride 0.9% 1,000 ML 30 ML IV (07:36)
--- NOTE | 2021-11-27 08:03 | P.OP_ITS ---
Operative Report Date of procedure: November 27, 2021 Pre-op diagnosis: Preop Diagnosis MARTHA-2 Post-op diagnosis: Same Procedure done: Cervix cone biopsy Specimens removed/disposition: Cone biopsy Surgeon: Manjinder Hsieh MD Estimated blood loss (mL): 5 IV fluids (mL): 600 Complications: None Procedure: After informed consent, the patient was taken to the operating room where general anesthesia was administered without difficulty. After administration of general anesthesia, the patient was placed in the dorsal lithotomy position, and prepped and draped in the usual sterile fashion. A time-out procedure was performed. The patient was examined under anesthesia and found to have a normal uterus with normal adnexa. A weighted speculum was then placed in the patient's vagina and the anterior lip of the cervix grasped with the singed toothed tenaculum A uterine sound was then advanced into the cervix to determine its direction and length. The decending cervical branchs of the uterine arteries were ligated with 2-0 Vicryl bilaterally at the level of the internal os. Attention was then turned to the cervix where it was stain with Lugol?s solution to hightlight the lesion. The paracervical area was then circumferentially infiltrated using Lidocaine 1% with epinephrine. A [address] Cone Biopsy Excisor was used to cut the cone biopsy in circular fashion and following removal of the specimen a suture was placed at the 12 o?clock location and fixed in formalin. Bleeding was minimal. The patient tolerated the procedure well, sponge, lap and needle counts were correct times two She was taken to the recovery room in good condition.
[2021-11-27 08:54] LABS: OR HCG Qualitative Urine Negative (Negative)
--- NOTE | 2021-11-27 10:58 | ANE.PACU2 ---
Inpatient post-anesthesia follow up: Airway intact: Yes Vital signs: Temperature 97.5 F Pulse Rate 80 Respiratory Rate 18 Blood Pressure 132/78 Pulse Oximetry 98 Oxygen Delivery Me thod Room Air Oxygen Flow Rate Fraction of Inspir ed Oxygen Hydration adequate: Yes Nausea and vomiting: No Pain level: 3 Mental status: Baseline
== END 2021-11-27 09:20 | disposition home or self-care (01) ==
PROVIDERS: PCP Family Medicine; Visit Provider Obstetrics & Gynecology
PROC: 0UBC7ZZ Excision of Cervix, Via Natural or Artificial Opening (ICD-10-PCS; CPT 57520; principal; 2021-11-27 07:00)
DX: N87.1 Moderate cervical dysplasia (principal); K21.9 Gastro-esophageal reflux disease without esophagitis
CPT/HCPCS: 57522; 84703; 85025; 86850; 86900; 88307; J1100; J2250; J2405; J2704; J3010; J7030; J7040

== ENCOUNTER 2021-12-25 08:56 | Emergency (ER) | payer MEDICAID, SELFPAY ==
[2021-12-25 09:00] VITALS: BP 110/78; PULSE 70; RESP 14; TEMP 36.6; O2SAT 98; BMI 22.6
[2021-12-25 09:04] VITALS: BP 120/86; PULSE 76; O2SAT 97
[2021-12-25 09:34] VITALS: BP 111/83; PULSE 77; O2SAT 99
--- NOTE | 2021-12-25 09:34 | W.ED.FEMALGU ---
HPI - Female Genitourinary General: Chief complaint: Urogenital-Female Stated complaint: Sent by Jori, Post Op complications Time Seen by Provider: 12/25/21 09:03 Source: patient Mode of arrival: ambulatory History of Present Illness: 26-year-old female presents emergency room with complaints of vaginal bleeding. 1 month ago she had a cone biopsy. Today she had onset of postcoital bleeding is actually improved some she had called Dr. Victor's office and he advised her to come to the emergency room. She denies dysuria urgency or frequency. She is midcycle at this point. Moderate pelvic pain MD elicited complaint: vaginal bleeding Onset (ago): hour(s) Quality of pain: cramping Consistency: improved Vaginal discharge: none Vaginal bleeding: heavy Exacerbating factors: other (Postcoital) Relieving factors: none Associated symptoms: Deny abdominal pain, short of breath, fevers/chills, headache(s), nausea, rash, seizures, syncope, vaginal bleeding, vaginal discharge or weakness Treatment prior to arrival: none Sexual activity: Yes Date of Last Menstrual Period: 11/15/21 Review of Systems Const: Denies: fever(s), chills, body aches, change in appetite, fatigue or malaise ENMT: Denies: throat pain, ear or mastoid pain, nasal discharge or nasal congestion Card: Denies: syncope Resp: Denies: dyspnea, productive cough or non-productive cough GI: Denies: abdominal pain or nausea : Reports: vaginal bleeding; Denies: flank pain, difficulty voiding, dysuria, urinary frequency, urinary urgency or vaginal discharge Musc: Denies: neck pain or back pain Skin/Breast: Denies: rash or pruritus Neuro: Denies: headache(s) PFSH ED PFSH: Medical History No pertinent past medical history neghx: htn,dm,thyroid,dvt/pe PCP: Dr. Rees Psychiatric care Surgical History Hx of cone biopsy of cervix (~11/27/21) MARTHA 2 with endocervical glandular involvement. All margins uninvolved and negative for dysplasia. Performed by Dr. Hsieh. Family History Mother Hypertension Diabetes Grandmother Thyroid condition maternal Colon cancer maternal great, late 80's Denies family history of Ovarian cancer Clotting disorder Heart disease Hyperlipidemia Anesthesia complication Bleeding disorder Uterine cancer Stroke Social History Smoking and tobacco status: former smoker Female Reproductive History: Date of last menstrual period: 11/15/21 Physical Exam Const: GENERAL APPEARANCE: cooperative and comfortable ORIENTATION/CONSCIOUSNESS: Yes awake, Yes oriented to person, Yes oriented to place and Yes oriented to time HENMT: COMMON NORMALS: normocephalic and atraumatic HEAD & SCALP: normocephalic and atraumatic Resp: COMMON NORMALS: normal respiratory effort, No retractions, No use of accessory muscles and clear to auscultation bilaterally AUSCULTATION: clear to auscultation bilaterally Cardio: COMMON NORMALS: regular rate, regular rhythm and No murmurs present (Cardio) RATE: regular rate RHYTHM: regular rhythm GI: COMMON NORMALS: Soft to palpation and No hepatosplenomegaly present AUSCULTATION: Yes normoactive bowel sounds PALPATION: Yes Soft to palpation, No Tenderness to palpation present (GI), No Guarding due to palpation present (GI) and Yes No hepatosplenomegaly present : SPECULUM EXAM - VAGINA: No vaginal bleeding OB/EXTERNAL & SPECULUM: No vaginal bleeding Back/Pelvis: OTHER: Exam patient present with lithotomy position with a nurse sugar mill worker present. Speculum introduced cervix visualized evidence of previous cone biopsy there is blood in the vaginal vault right after the blood present was cleared up there is only mild oozing from the site of the cone biopsy difficult to visualize the os of the cervix because of the healing cone biopsy. Appears to be coming from the biopsy site itself. Extremity: COMMON NORMALS: normal to inspection, capillary refill normal, no clubbing, cyanosis or edema, no calf tenderness and no pedal edema Neuro: SENSORIUM/ORIENTATION: Yes oriented to person, Yes oriented to place and Yes oriented to time Skin: COMMON NORMALS: no rashes or lesions noted GENERAL SKIN EXAM: no rashes or lesions noted Course Vital Signs: Vital signs: Vital Signs Temperature 98 F 12/25/21 09:00 Pulse Rate 66 12/25/21 10:04 Respiratory Rate 14 12/25/21 09:00 Blood Pressure 129/87 12/25/21 10:04 Pulse Oximetry 100 12/25/21 10:04 Oxygen Delivery Me thod 12/25/21 10:04 MDM - Female Medical Decision Making Suspect bleeding from trauma of intercourse. Could be that she is getting her. In any event it is slowed nearly stopped when we did the pelvic exam. Follow-up with her mobile disc jockey if recurs pelvic rest until followed up by gynecology hemoglobin is stable. Medical Records I reviewed the patient's medical records. Lab Data I reviewed the patient's lab results. : 12/25/21 09:50 Laboratory Results WBC 4.0 10^3/uL (4.0-10.0) 12/25/21 09:50 RBC 3.57 10^6/uL (4.1-5.3) L 12/25/21 09:50 Hgb 11.1 g/dL (11.5-15.3) L 12/25/21 09:50 Hct 34.1 % (37.0-47.0) L 12/25/21 09:50 MCV 95.5 fl (81-99) 12/25/21 09:50 MCH 31.1 pg (28.0-34.0) 12/25/21 09:50 MCHC 32.6 g/dL (30.0-36.0) 12/25/21 09:50 RDW 12.9 % (12.1-15.1) 12/25/21 09:50 Plt Count 283 10^3/cmm (130-400) 12/25/21 09:50 MPV 10.1 fL (7.4-10.4) 12/25/21 09:50 Neut % (Auto) 51.3 % 12/25/21 09:50 Lymph % (Auto) 36.8 % 12/25/21 09:50 [place] % (Auto) 5.8 % 12/25/21 09:50 Eos % (Auto) 4.8 % 12/25/21 09:50 Baso % (Auto) 1.3 % 12/25/21 09:50 Neut # (Auto) 2.06 10^3/uL (1.8-7.7) 12/25/21 09:50 Lymph # (Auto) 1.5 10^3/uL (0.8-4.8) 12/25/21 09:50 [place] # (Auto) 0.2 10^3/uL (0.2-0.9) 12/25/21 09:50 Eos # (Auto) 0.2 10^3/uL (0.0-0.8) 12/25/21 09:50 Baso # (Auto) 0.1 10^3/uL (0.0-0.1) 12/25/21 09:50 Nucleated RBC % (auto) 0 % 12/25/21 09:50 Nucleated RBCs # 0.0 /100WBC 12/25/21 09:50 Discharge Plan Discharge Patient Disposition: Home Clinical Impression: Vaginal bleeding Condition: Stable Prescriptions: No Action ifooafro-mzwtaxo-tjof-lutein Tablet 1 tab PO DAILY hydrocodone-acetaminophen 5-325 mg tablet 1 tab PO Q4H PRN (Reason: Pain) iron 325 mg (65 mg iron) Tablet 325 mg PO DAILY docusate sodium [Colace] 100 mg capsule 100 mg PO BID Qty: 60 0RF acetaminophen 325 mg capsule 325 mg PO Q4H PRN (Reason: fever or pain) Qty: 60 0RF Discharge Orders: Discharge ED (Routine); Ordered 12/25/21 Ordered By: Audie Castro Referrals: Lionel Rees MD [Primary Care Provider] - Patient Instructions: Opioid Safety, Pain Management Activity Restrictions/Additional Instructions: electrical construction project manager will make arrangements for you to follow-up with gynecology. Pelvic rest until seen by gynecology Coding Level of Care Code ED Finish Inspector for Chg Fwd Exam Comprehensive
[2021-12-25 09:56] LABS: Basophils # 0.1 10^3/uL (0.0-0.1); Basophils % 1.3 %; Eosinophils # 0.2 10^3/uL (0.0-0.8); Eosinophils % 4.8 %; Hematocrit 34.1 % (37.0-47.0); Hemoglobin 11.1 g/dL (11.5-15.3); Lymphocytes # 1.5 10^3/uL (0.8-4.8); Lymphocytes % 36.8 %; Mean Corpuscular HGB Conc 32.6 g/dL (30.0-36.0); Mean Corpuscular Hemoglobin 31.1 pg (28.0-34.0); Mean Corpuscular Volume 95.5 fl (81-99); Mean Platelet Volume 10.1 fL (7.4-10.4); Monocytes # 0.2 10^3/uL (0.2-0.9); Monocytes % 5.8 %; Neutrophils # 2.06 10^3/uL (1.8-7.7); Neutrophils % 51.3 %; Nucleated Red Blood Cells % 0 %; Platelet Count 283 10^3/cmm (130-400); Red Blood Count 3.57 10^6/uL (4.1-5.3); Red Cell Distribution Width 12.9 % (12.1-15.1)
[2021-12-25 10:04] VITALS: BP 129/87; PULSE 66; O2SAT 100
== END 2021-12-25 10:43 | disposition home or self-care (01) ==
PROVIDERS: Emergency Provider Family Medicine; PCP Family Medicine
DX: N93.9 Abnormal uterine and vaginal bleeding, unspecified (principal); Z87.891 Personal history of nicotine dependence
CPT/HCPCS: 36415; 85025; 99284; E0352

== ENCOUNTER 2022-01-07 10:24 | Outpatient (CLI) | payer MEDICAID, SELFPAY ==
[2022-01-07 11:42] LABS: Free T4 Free Thyroxine 1.09 ng/dL (0.82-1.77); Thyroid Stimulating Hormone 2.54 uIU/mL (0.27-4.20)
[2022-01-07 12:27] LABS: Cortisol Random 4.58 ug/dL (2.47-19.5)
[2022-01-08 17:07] LABS: Thyroid Peroxidase Antobodies 4 IU/mL (<9)
[2022-01-09 15:28] LABS: Immunoglobulin A 207 mg/dL (47-310)
[2022-01-10 02:58] LABS: Gliadin Ab.IgG <1.0 U/mL
[2022-01-10 03:03] LABS: Tissue Transglutaminase IgA Ab <1.0 U/mL; Tissue transglutaminase Ab.IgG <1.0 U/mL
[2022-01-11 15:13] LABS: TSH Receptor Binding Antibody 1.32 IU/L (< OR = 2.00)
[2022-01-13 10:18] LABS: Thyroglobulin Level 27.8 ng/mL
== END 2022-01-07 10:25 | disposition home or self-care (01) ==
LOC: LAB 10:26
PROVIDERS: PCP Family Medicine; Visit Provider Internal Medicine
DX: E27.9 Disorder of adrenal gland, unspecified (principal); F32.81 Premenstrual dysphoric disorder; R53.83 Other fatigue; R63.4 Abnormal weight loss
CPT/HCPCS: 36415; 81000; 82533; 82784; 83516; 84432; 84439; 84443; 86376; 86800

== ENCOUNTER → 2022-01-24 11:36 | Day surgery (SDC) | payer MEDICAID, SELFPAY ==
[2022-01-24] MEDS: cosyntropin 0.25 mg SDV IVP (11:58)
[2022-01-24 12:23] VITALS: BP 126/94; PULSE 95; RESP 18; TEMP 36.7; O2SAT 98
[2022-01-24 12:55] LABS: Cosyntropin Baseline 14.11 mcg/dL
[2022-01-24 13:29] LABS: Cosyntropin 30 Minute 19.51 mcg/dL
[2022-01-24 13:45] LABS: Cosyntropin 1 Hour 20.92 mcg/dL
== END ==
PROVIDERS: PCP Family Medicine; Visit Provider Internal Medicine
DX: R82.90 Unspecified abnormal findings in urine (principal); F32.81 Premenstrual dysphoric disorder; R53.83 Other fatigue; R63.4 Abnormal weight loss
CPT/HCPCS: 36415; 82533; 96374; J0834

== ENCOUNTER → 2022-04-27 12:27 | Outpatient (BNVA) | payer MEDICAID, SELFPAY | PROVIDERS: PCP Family Medicine; Visit Provider Nurse Practitioner | DX: M54.9 Dorsalgia, unspecified (principal); S39.012A Strain of muscle, fascia and tendon of lower back, initial encounter; X58.XXXA Exposure to other specified factors, initial encounter | CPT/HCPCS: 81000 ==

== ENCOUNTER 2022-10-11 12:32 | Emergency (ER) | payer MEDICAID, SELFPAY ==
[2022-10-11 12:38] VITALS: BP 144/87; PULSE 88; RESP 16; TEMP 36.8; O2SAT 100; BMI 25.5
--- NOTE | 2022-10-11 13:04 | ED_ITS ---
HPI - General: Chief complaint: OB/Uterine Contractions Stated complaint: possible ectopic pregnany, 6 weeks Time Seen by Provider: 10/11/22 12:43 Source: patient Mode of arrival: ambulatory History of Present Illness: 27-year-old female presents emergency room she is concerned about her she is a first trimester she was seen in the local ER had a beta-hCG of 14,000 she is not really having a lot of cramping she does have little bit of vaginal discharge with a yeast infection. She was started on medication for that yesterday. No vaginal bleeding or abdominal pain or pelvic pain. Associated symptoms: Deny abdominal pain, dysuria, malaise, nausea, vaginal discharge or vomiting Review of Systems Const: Denies: fever(s), chills, body aches, change in appetite, fatigue or malaise ENMT: Denies: throat pain, ear or mastoid pain, nasal discharge or nasal congestion Card: Denies: chest pain, edema, dyspnea on exertion or orthopnea Resp: Denies: dyspnea, productive cough or non-productive cough GI: Denies: abdominal pain, nausea, vomiting, hematemesis, coffee ground emesis, diarrhea, constipation, bloating, hematochezia or melena : Denies: flank pain, difficulty voiding, dysuria, urinary frequency, urinary urgency, vaginal bleeding, vaginal discharge or pelvic pain Skin/Breast: Denies: rash or pruritus PFSH ED PFSH: Medical History Adrenal gland disorder No pertinent past medical history neghx: htn,dm,thyroid,dvt/pe PCP: Dr. Rees Surgical History Hx of cone biopsy of cervix (~11/27/21) MARTHA 2 with endocervical glandular involvement. All margins uninvolved and negative for dysplasia. Performed by Dr. Hsieh. Family History Mother Hypertension Diabetes Grandmother Thyroid condition maternal Colon cancer maternal great, late 80's Denies family history of Ovarian cancer Clotting disorder Heart disease Hyperlipidemia Anesthesia complication Bleeding disorder Uterine cancer Stroke Social History Smoking and tobacco status: never smoked Physical Exam Const: COMMON NORMALS: no acute distress GENERAL APPEARANCE: cooperative and comfortable ORIENTATION/CONSCIOUSNESS: Yes awake, Yes oriented to person, Yes oriented to place and Yes oriented to time HENMT: COMMON NORMALS: normocephalic, atraumatic and hearing grossly normal bilaterally HEAD & SCALP: normocephalic and atraumatic Resp: COMMON NORMALS: normal respiratory effort, No retractions, No use of accessory muscles and clear to auscultation bilaterally AUSCULTATION: clear to auscultation bilaterally Cardio: COMMON NORMALS: regular rate, regular rhythm and No murmurs present (Cardio) RATE: regular rate RHYTHM: regular rhythm GI: COMMON NORMALS: Soft to palpation and No hepatosplenomegaly present AUSCULTATION: Yes normoactive bowel sounds PALPATION: Yes Soft to palpation, No Tenderness to palpation present (GI), No Guarding due to palpation present (GI) and Yes No hepatosplenomegaly present Extremity: COMMON NORMALS: normal to inspection, capillary refill normal, no clubbing, cyanosis or edema, no calf tenderness and no pedal edema Neuro: SENSORIUM/ORIENTATION: Yes oriented to person, Yes oriented to place and Yes oriented to time Skin: COMMON NORMALS: no rashes or lesions noted GENERAL SKIN EXAM: no rashes or lesions noted Course Vital Signs: Vital signs: Vital Signs Temperature 98.3 F 10/11/22 12:38 Pulse Rate 67 10/11/22 13:56 Respiratory Rate 16 10/11/22 12:38 Blood Pressure 120/76 10/11/22 13:56 Pulse Oximetry 96 10/11/22 13:56 Oxygen Delivery Me thod Room Air 10/11/22 13:56 MDM - OB/Uterine Contractions Medical Decision Making Records from [facility]. Beta-hCG is decrease from [facility] by 1999 and less than 12 hours. Patient has no pelvic pain or bleeding at this time we will go and discharge her home have her follow-up with MAGAZINE DESIGNER as planned. ER doctor did a bedside ultrasound could not identify however she is not having severe pain. I do not believe based on her lack of symptoms that she has an ectopic patient vies to return if she has any worsening pain or symptoms. Medical Records I reviewed the patient's medical records. Lab Data I reviewed the patient's lab results. 10/11/22 13:06 Laboratory Results WBC 6.3 10^3/uL (4.0-10.0) 10/11/22 13:06 RBC 3.67 10^6/uL (4.1-5.3) L 10/11/22 13:06 Hgb 11.5 g/dL (11.5-15.3) 10/11/22 13:06 Hct 34.7 % (37.0-47.0) L 10/11/22 13:06 MCV 94.6 fl (81-99) 10/11/22 13:06 MCH 31.3 pg (28.0-34.0) 10/11/22 13:06 MCHC 33.1 g/dL (30.0-36.0) 10/11/22 13:06 RDW 12.8 % (12.1-15.1) 10/11/22 13:06 Plt Count 235 10^3/cmm (130-400) 10/11/22 13:06 MPV 9.8 fL (7.4-10.4) 10/11/22 13:06 Neut % (Auto) 67.9 % 10/11/22 13:06 Lymph % (Auto) 23.7 % 10/11/22 13:06 [place] % (Auto) 6.5 % 10/11/22 13:06 Eos % (Auto) 1.1 % 10/11/22 13:06 Baso % (Auto) 0.5 % 10/11/22 13:06 Neut # (Auto) 4.29 10^3/uL (1.8-7.7) 10/11/22 13:06 Lymph # (Auto) 1.5 10^3/uL (0.8-4.8) 10/11/22 13:06 [place] # (Auto) 0.4 10^3/uL (0.2-0.9) 10/11/22 13:06 Eos # (Auto) 0.1 10^3/uL (0.0-0.8) 10/11/22 13:06 Baso # (Auto) 0.0 10^3/uL (0.0-0.1) 10/11/22 13:06 Nucleated RBC % (auto) 0 % 10/11/22 13:06 Nucleated RBCs # 0.0 /100WBC 10/11/22 13:06 Ser , Semi-Qnt 75118.00 mIU/mL 10/11/22 13:06 Discharge Plan Discharge Patient Disposition: Home Clinical Impression: Miscarriage, threatened, early Condition: Stable Prescriptions: No Action ferrous sulfate [iron] 325 mg (65 mg iron) Tablet 325 mg PO DAILY Multivitamins 28 mg iron- 800 mcg Tablet 1 tab PO DAILY Discharge Orders: Discharge ED (Routine); Ordered 10/11/22 Ordered By: Audie Castro Referrals: Lionel Rees MD [Primary Care Provider] - Discharge Diet: Usual diet Discharge Activity: Increase activity as tolerated Patient Instructions: Opioid Safety, Pain Management Activity Restrictions/Additional Instructions: Follow-up appointment Dr. Rees this coming week. Return if you have development of severe abdominal pain or heavy vaginal bleeding Coding Level of Care Code ED Potato Chip Sorter for Marcella Chavez
[2022-10-11 13:20] LABS: Basophils % 0.5 %; Eosinophils # 0.1 10^3/uL (0.0-0.8); Eosinophils % 1.1 %; Hematocrit 34.7 % (37.0-47.0); Hemoglobin 11.5 g/dL (11.5-15.3); Lymphocytes # 1.5 10^3/uL (0.8-4.8); Lymphocytes % 23.7 %; Mean Corpuscular HGB Conc 33.1 g/dL (30.0-36.0); Mean Corpuscular Hemoglobin 31.3 pg (28.0-34.0); Mean Corpuscular Volume 94.6 fl (81-99); Mean Platelet Volume 9.8 fL (7.4-10.4); Monocytes # 0.4 10^3/uL (0.2-0.9); Monocytes % 6.5 %; Neutrophils # 4.29 10^3/uL (1.8-7.7); Neutrophils % 67.9 %; Nucleated Red Blood Cells % 0 %; Platelet Count 235 10^3/cmm (130-400); Red Blood Count 3.67 10^6/uL (4.1-5.3); Red Cell Distribution Width 12.8 % (12.1-15.1); White Blood Count 6.3 10^3/uL (4.0-10.0)
[2022-10-11 13:56] VITALS: BP 120/76; PULSE 67; O2SAT 96
[2022-10-11 14:20] VITALS: BP 119/78; PULSE 84; O2SAT 97
== END 2022-10-11 14:22 | disposition home or self-care (01) ==
PROVIDERS: Emergency Provider Family Medicine; PCP Family Medicine
DX: O20.0 Threatened abortion (principal)
CPT/HCPCS: 36415; 84702; 85025; 99283

== ENCOUNTER 2022-11-23 03:37 | Emergency (ER) | payer MEDICAID, SELFPAY ==
[2022-11-23 03:42] VITALS: BP 125/79; PULSE 98; RESP 18; TEMP 36.6; O2SAT 97; BMI 24.0
--- NOTE | 2022-11-23 03:53 | W.ED.FEMALGU ---
HPI - Female Genitourinary General: Chief complaint: Vaginal Bleeding Stated complaint: bleeding/fluid and 13 weeks Time Seen by Provider: 11/23/22 03:38 Source: patient Mode of arrival: ambulatory Limitations: no limitations History of Present Illness: 27-year-old female who is currently 12 weeks states she woke up this morning with some vaginal bleeding and felt like she had some fluid she had some slight abdominal cramping she denies any severe pain she denies any worsening improving factors. Associated symptoms: Reports abdominal pain; Deny headache(s) or nausea Date of Last Menstrual Period: 08/23/22 Review of Systems Const: Denies: fever(s) or chills ENMT: Denies: throat pain or dental pain Card: Denies: chest pain Resp: Denies: dyspnea GI: Reports: abdominal pain; Denies: nausea, vomiting or diarrhea : Reports: vaginal bleeding Musc: Denies: neck pain or back pain Skin/Breast: Denies: rash Neuro: Denies: headache(s) PFSH ED PFSH: Medical History Adrenal gland disorder No pertinent past medical history neghx: htn,dm,thyroid,dvt/pe PCP: Dr. Rees Surgical History Hx of cone biopsy of cervix (~11/27/21) MARTHA 2 with endocervical glandular involvement. All margins uninvolved and negative for dysplasia. Performed by Dr. Hsieh. Family History Mother Hypertension Diabetes Grandmother Thyroid condition maternal Colon cancer maternal great, late 80's Denies family history of Ovarian cancer Clotting disorder Heart disease Hyperlipidemia Anesthesia complication Bleeding disorder Uterine cancer Stroke Social History Smoking and tobacco status: never smoked Female Reproductive History: Date of last menstrual period: 08/23/22 Physical Exam Const: COMMON NORMALS: no acute distress, patient oriented x3 and healthy appearing HENMT: COMMON NORMALS: normocephalic and atraumatic HEAD & SCALP: normocephalic and atraumatic Neck/C-Spine: COMMON NORMALS: full ROM and supple Chest: COMMONS NORMALS: normal inspection of the chest Resp: COMMON NORMALS: normal respiratory effort Cardio: COMMON NORMALS: regular rate, regular rhythm and No murmurs present (Cardio) RATE: regular rate RHYTHM: regular rhythm GI: COMMON NORMALS: Normal to inspection, nondistended, normoactive bowel sounds present, Soft to palpation, non-tender and no masses PALPATION: Yes Soft to palpation : OTHER: Cervix closed no blood in the vaginal vault Extremity: COMMON NORMALS: normal to inspection and full ROM Neuro: COMMON NORMALS: patient oriented x3, moves all extremities and no focal motor deficits Psych: COMMON NORMALS: mental status grossly normal, Normal thought process present and cooperative THOUGHT PROCESS: Normal thought process present Skin: COMMON NORMALS: no rashes or lesions noted and no wounds GENERAL SKIN EXAM: no rashes or lesions noted Course Vital Signs: Vital signs: Vital Signs Temperature 98 F 11/23/22 03:42 Pulse Rate 98 11/23/22 03:42 Respiratory Rate 18 11/23/22 03:42 Blood Pressure 125/79 11/23/22 03:42 Pulse Oximetry 97 11/23/22 03:42 [facility] - Female Medical Decision Making Patient presents here with threatened miscarriage abdominal exam is benign pelvic exam showed no bleeding cervix is closed did a bedside ultrasound IUP consistent with dates heart rate of 148 she is stable for discharge from her previous blood bank results she is Rh+ she is to follow-up with her OB next week return if worsening she understands agrees to plan. Medical Records I reviewed the patient's medical records. Discharge Plan Discharge Patient Disposition: Home Clinical Impression: Threatened miscarriage Condition: Stable Prescriptions: No Action ferrous sulfate [iron] 325 mg (65 mg iron) Tablet 325 mg PO DAILY Multivitamins 28 mg iron- 800 mcg Tablet 1 tab PO DAILY Discharge Orders: Discharge ED (Routine); Ordered 11/23/22 Ordered By: Leigh Deras Referrals: Lionel Rees MD [Primary Care Provider] - Discharge Diet: Advance as tolerated Discharge Activity: Resume usual activity Patient Instructions: Threatened Miscarriage (ED) Coding Level of Care Code ED Photocopying Machine Operator for Marcella Chavez
[2022-11-23 04:13] VITALS: PULSE 98; RESP 16; O2SAT 97
== END 2022-11-23 04:08 | disposition home or self-care (01) ==
PROVIDERS: Emergency Provider Emergency Medicine; PCP Family Medicine
DX: O20.0 Threatened abortion (principal); Z3A.12 12 weeks gestation of pregnancy
CPT/HCPCS: 99283; E0352

== ENCOUNTER 2023-04-06 12:50 | Outpatient (CLI) | payer MEDICAID, SELFPAY ==
[2023-04-06 13:00] VITALS: BMI 28.6
[2023-04-06 13:06] VITALS: BP 139/83; PULSE 137
[2023-04-06 13:27] VITALS: BP 133/76; PULSE 126
[2023-04-06 13:43] LABS: Bilirubin Urine Neg (Negative); Blood Urine 2+ (Negative); Glucose Urine UA Norm (Normal); Ketones Urine Negative (Negative); Leukocyte Esterase Urine Negative (Negative); Nitrate Urine Negative (Negative); Protein Urine Neg (Negative); Specific Gravity, Urine 1.015 (1.005-1.030); Urine Appearance Clear (CLEAR); Urine Color Yellow (Yellow); Urobilinogen Urine Neg (Negative); pH Urine 6.5 (5-7)
[2023-04-06 13:44] LABS: RBC Urine 0-4 /hpf (0-2); WBC Urine 0-4 /hpf (0-5)
[2023-04-06 13:45] LABS: Bacteria Urine 2+ /hpf; Mucus Urine TRACE /hpf
[2023-04-06 13:46] LABS: Add Urine Culture? Yes; Coarse Granular Casts Urine 0-4 /lpf
[2023-04-06 13:47] VITALS: BP 135/75; PULSE 116
[2023-04-06 13:59] VITALS: BP 135/75; PULSE 116; RESP 16
== END 2023-04-06 13:59 | disposition home or self-care (01) ==
LOC: OPOB 12:54 → OBGYN 12:56
PROVIDERS: Absent Provider Family Medicine; PCP Family Medicine; Visit Provider Family Medicine
DX: O26.899 Other specified pregnancy related conditions, unspecified trimester (principal); Z3A.00 Weeks of gestation of pregnancy not specified; R10.9 Unspecified abdominal pain; R19.7 Diarrhea, unspecified
CPT/HCPCS: 59025; 81001; 87086; 99211

== ENCOUNTER 2023-04-07 19:24 | Outpatient (CLI) | payer MEDICAID, SELFPAY ==
[2023-04-07 19:29] VITALS: BMI 28.6
[2023-04-07 19:38] VITALS: BP 132/74; PULSE 120
[2023-04-07 19:41] VITALS: RESP 16
[2023-04-07 20:07] VITALS: BP 121/70; PULSE 108
[2023-04-07 20:13] VITALS: BP 121/70; PULSE 108; RESP 16; TEMP 36.6
== END 2023-04-07 20:15 | disposition home or self-care (01) ==
LOC: OPOB 19:25 → OBGYN 19:27
PROVIDERS: PCP Family Medicine; Visit Provider Family Medicine
DX: O26.899 Other specified pregnancy related conditions, unspecified trimester (principal); Z3A.00 Weeks of gestation of pregnancy not specified; R50.9 Fever, unspecified
CPT/HCPCS: 59025; 99211

== ENCOUNTER 2023-04-10 12:18 | Outpatient (CLI) | payer MEDICAID, SELFPAY ==
[2023-04-10 12:16] VITALS: BMI 28.8
[2023-04-10 12:50] VITALS: BP 116/70; PULSE 96
[2023-04-10 13:10] VITALS: BP 118/77; PULSE 106
[2023-04-10 13:29] LABS: Add Urine Culture? No; Bacteria Urine TRACE /hpf; Bilirubin Urine Neg (Negative); Blood Urine Trace (Negative); Glucose Urine UA Norm (Normal); Ketones Urine Negative (Negative); Leukocyte Esterase Urine Negative (Negative); Nitrate Urine Negative (Negative); Protein Urine Neg (Negative); RBC Urine 0-4 /hpf (0-2); Squamous Epithelial Cell Urine 0-4 /hpf (0-5); Urine Appearance Clear (CLEAR); Urine Color Yellow (Yellow); Urobilinogen Urine Norm (Negative); WBC Urine 0-4 /hpf (0-5); pH Urine 7 (5-7)
[2023-04-10] MEDS: docusate sodium 100 mg Capsule 300 MG PO (13:45)
== END 2023-04-10 13:55 | disposition home or self-care (01) ==
LOC: OPOB 12:19 → OBGYN 12:20
PROVIDERS: PCP Family Medicine; Visit Provider Family Medicine
DX: O26.899 Other specified pregnancy related conditions, unspecified trimester (principal); Z3A.00 Weeks of gestation of pregnancy not specified; K59.00 Constipation, unspecified
CPT/HCPCS: 59025; 81001; 99211

== ENCOUNTER 2023-04-12 10:50 | Outpatient (CLI) | payer MEDICAID, SELFPAY ==
[2023-04-12 11:05] VITALS: BMI 28.6
[2023-04-12 11:06] VITALS: BP 128/60; PULSE 100
[2023-04-12 11:07] VITALS: TEMP 36.1
[2023-04-12 12:03] LABS: Actim Prom Positive
--- NOTE | 2023-04-12 12:26 | USR_ITS ---
PROCEDURE INFORMATION: Exam: US , Limited Exam date and time: 04/12/2023 12:44 PM Age: 27 years old Clinical indication: Lmp or gestational age (in weeks): 32w4d; Antepartum complications; Premature rupture of membranes; ; Additional info: Geoff TECHNIQUE: Imaging protocol: Real-time ultrasound of the maternal uterus with image documentation. Exam focused on the clinical indication. COMPARISON: US OB >= 14 weeks fetus [id number] 01/29/2023 10:04 AM FINDINGS: Gestation: Single live intra uterine with a heart rate of: 138 bpm Cervix: Cervical average length measures 6.7 centimeters, with a v-shaped amniotic fluid filled funneling of the cervix measuring up to 3.8 x 2.7 cm. GEOFF average of 4 measurements: 10.1 centimeters No placental hematoma. US/US OB limited [id number] IMPRESSION: 1. Single live intrauterine with a heart rate of 138 bpm. 2. Cervical funneling less than 50% with the internal part of the cervical canal canal measuring up to 3.8 (length) x 2.7 (width) cm. Findings suspicious for cervical incompetence.
[2023-04-12 12:45] LABS: Amphetamines Screen Urine Negative (Negative); Barbiturates Screen Urine Negative (Negative); Benzodiazepines Screen Urine Negative (Negative); Cocaine Screen Urine Negative (Negative); Opiate Screen Urine Negative (Negative); PCP Screen Urine Negative (Negative); THC Screen Urine Negative (Negative)
--- NOTE | 2023-04-12 13:27 | P.HP_ITS ---
Providers/Chief Complaint Primary Care Provider: Lionel Rees MD Chief Complaint: Poss LOF, Fever HPI CATERING ASSOCIATE History of Present Illness The patient is a 27-year-old 8 para 3-0-4-3 who is 32 weeks and 4 days who presented to the hospital complaining of leaking vaginal fluid. She stated that the leaking fluid began yesterday. There is no specific moment that the fluid leaking began. After presenting at the hospital she had a sterile spec performed. She was found to be nitrazine positive. She was found to be actin PROM positive. 2 separate ferning test were found to be negative. There was some pooling noted in the posterior vaginal vault. There was no obvious fluid coming from her cervical os with cough during her sterile spec exam. An ultrasound was ordered and she was found to have an GEOFF of 10.7. She is having occasional contractions. Her cervix was noted to be 1 cm dilated, and firm. Her labs are as follows: Her 1 hour glucose screen was positive. Her 3-hour glucose screen was negative. Her blood type is a positive. Her antibody screen is negative. Her hepatitis B, hepatitis C, HIV, RPR, gonorrhea, and chlamydia were negative She is rubella immune Her drug screen was negative Her most recent Pap was negative Please note that this is a transfer note/DC note as well. Review of Systems General: Reports: 10 or more systems reviewed and unremarkable except in HPI and below Const: Reports: fatigue; Denies: fever(s) Eyes: Denies: change in vision Card: Denies: chest pain Musc: Reports: back pain [place]/Lymph: Denies: easy bruising Medications/Allergies Home Medications Medication Instructions Recorded Confirmed Last Taken Type ferrous sulfate 325 mg (65 mg 325 mg PO DAILY 12/25/21 02/21/23 04/05/23 12:00 History iron) tablet (iron) vit no.95-ferrous 1 tab PO DAILY 10/11/22 02/21/23 04/05/23 12:00 History fumarate 28 mg-folic acid 800 mcg tablet ( Multivitamins) famotidine 40 mg tablet 40 mg PO DAILY #30 tabs 02/21/23 02/21/23 Unknown Rx Allergies Allergy/AdvReac Type Severity Reaction Status Date / Time divalproex sodium Allergy Severe increased Verified 02/21/23 15:54 [From Depakote] anxiety ibuprofen Allergy Severe GI side Verified 02/21/23 15:54 effects metronidazole Allergy Severe Hives Verified 02/21/23 15:54 esomeprazole [From Nexium] Allergy Intermediate GI side Verified 02/21/23 15:54 effects PFSH CATERING ASSOCIATE PFSH: Medical History (Updated 04/12/23 @ 13:36 by Lionel Rees MD) Cholestasis during Adrenal gland disorder No pertinent past medical history neghx: htn,dm,thyroid,dvt/pe PCP: Dr. Rees Surgical History Hx of cone biopsy of cervix (~11/27/21) MARTHA 2 with endocervical glandular involvement. All margins uninvolved and negative for dysplasia. Performed by Dr. Hsieh. Family History Mother Hypertension Diabetes Grandmother Thyroid disease maternal Colon cancer maternal great, late 80's Denies family history of Ovarian cancer Clotting disorder Heart disease Hyperlipidemia Anesthesia complication Bleeding disorder Uterine cancer Stroke Social History Smoking and tobacco/nicotine status: never used tobacco/nicotine History History History 8 Term 2 1 Miscarriages/Ectopic 4 Living Children 3 Vitals/I&O/Wt Last Vital Signs Temp 97.0 F L 04/12/23 11:07 Pulse 100 04/12/23 11:06 BP 128/60 04/12/23 11:06 Physical Exam Const: COMMON NORMALS: patient oriented x3 and alert HENMT: COMMON NORMALS: moist oral mucous membranes HEAD & SCALP: normal to inspection Chest: COMMONS NORMALS: normal inspection of the chest Resp: COMMON NORMALS: clear to auscultation bilaterally AUSCULTATION: clear to auscultation bilaterally Cardio: COMMON NORMALS: regular rate and regular rhythm RATE: regular rate RHYTHM: regular rhythm GI: INSPECTION: Yes normal to inspection and Yes other (Gravid) : OTHER: Spec exams reveals no moist vaginal vault. Negative cough test. Fluid in vault is relatively clear and mostly appears like water and clarity and viscosity. Extremity: COMMON NORMALS: normal to inspection GENERAL: Yes edema (Trace) Neuro: COMMON NORMALS: patient oriented x3, moves all extremities and no sensory deficits noted SENSORIUM/ORIENTATION: Yes alert Psych: COMMON NORMALS: mental status grossly normal Skin: COMMON NORMALS: no rashes or lesions noted GENERAL SKIN EXAM: no rashes or lesions noted Results Labs OB ([facility]): Obstetrics US 04/12/23 Blood Type A Positive 11/27/21 Antibody Screen Negative 11/27/21 Hct 34.7 % (37.0-47.0) L 10/11/22 Hgb 11.5 g/dL (11.5-15.3) 10/11/22 Rho(D) Type Positive 11/27/21 Plt Count 235 10^3/cmm (130-400) 10/11/22 TSH 2.54 uIU/mL (0.27-4.20) 01/07/22 Free T4 1.09 ng/dL (0.82-1.77) 01/07/22 Ser , Semi-Qnt 28490.00 mIU/mL 10/11/22 HCG, Qual Negative (Negative) 11/25/21 Urine Opiates Screen Negative ng/mL (Negative) 04/12/23 Ur Barbiturates Screen Negative ng/mL (Negative) 04/12/23 Ur Phencyclidine Scrn Negative ng/mL (Negative) 04/12/23 Ur Amphetamines Screen Negative ng/mL (Negative) 04/12/23 U Benzodiazepines Scrn Negative ng/mL (Negative) 04/12/23 Urine Cocaine Screen Negative ng/mL (Negative) 04/12/23 U Marijuana (THC) Screen Negative ng/mL (Negative) 04/12/23 Micro Urine Specimen 04/06/23 A&P Assessment and plan (1) 32 weeks gestation of : (2) Abnormal vaginal fluids: In the face of an active problem was positive, a dark blue nitrazine positive, and clear vaginal fluid this has to be assumed as rupture membranes until proven otherwise. The ferning test being negative twice, and the GEOFF being greater than 10 does present a confusing picture. But she would benefit from further testing and careful monitoring at a facility that can provide a higher level of care.. She will also need to have neonatology if it is determined that she has rupture membranes, and given her multigravida status, it is likely she will progress quickly. As such, we will transfer her to [facility] for further evaluation and care. Attestations Medical Necessity Statement*: The patient is being transferred currently. Coding Level of Care Code Acute Code for Chg Fwd Diagnoses 32 weeks gestation of Z3A.32 Abnormal vaginal fluids R87.9
[2023-04-12 13:55] LABS: Basophils % 0.4 %; Eosinophils % 0.4 %; Hematocrit 38.4 % (36-47); Lymphocytes # 0.5 10^3/uL (0.8-4.8); Lymphocytes % 17.5 %; Mean Corpuscular HGB Conc 33.1 g/dL (30-55); Mean Corpuscular Hemoglobin 31.4 pg (27-33); Mean Corpuscular Volume 94.8 fl (85-98); Mean Platelet Volume 9.7 fL (7.4-10.4); Monocytes # 0.1 10^3/uL (0.2-0.9); Monocytes % 3.3 %; Neutrophils # 2.15 10^3/uL (1.8-7.7); Nucleated Red Blood Cells % 0 %; Platelet Count 176 10^3/cmm (157-399); Red Blood Count 4.05 10^6/uL (3.85-5.65); Red Cell Distribution Width 13.8 % (12.1-15.1); White Blood Count 2.75 10^3/uL (3.29-11.43)
[2023-04-12] MEDS: betamethasone susp 6 mg/mL 1 mL (per mL) 12 MG IM (13:59)
[2023-04-12] MEDS: dextrose 5%-lactated ringers 1,000 ML 125 ML IV (13:59)
[2023-04-12 14:00] VITALS: BP 128/80; TEMP 36.1
[2023-04-12 14:16] LABS: Alanine Aminotransferase 34 U/L (0-33); Albumin Level 3.3 g/dL (3.5-5.2); Alkaline Phosphatase 147 U/L (35-105); Chloride 100 mmol/L (98-107); Potassium 3.1 mmol/L (3.5-5.1); Sodium 134 mmol/L (136-145)
[2023-04-12 14:51] LABS: Aspartate Amino Transferase 29 U/L (0-32); Blood Urea Nitrogen 4 mg/dL (6-20); Calcium 8.9 mg/dL (8.5-10.5); Carbon Dioxide 23 mmol/L (22-29); Glomerular Filtration Rate 188.7 mL/min (90-130); Glucose 99 mg/dL (65-115); Total Bilirubin 0.7 mg/dL (0.15-1.2); Total Protein 6.6 g/dL (6.6-8.7)
[2023-04-12 14:59] LABS: Anion Gap 14.1 (5-19); Globulin 3.3 g/dL (1.3-4.6); Osmolality Calculated 275 mOsm/kg (285-295)
== END 2023-04-12 14:00 | disposition intermediate care facility (04) ==
LOC: OPOB 10:50 → OBGYN 10:51
PROVIDERS: PCP Family Medicine; Visit Provider Family Medicine
DX: O26.899 Other specified pregnancy related conditions, unspecified trimester (principal); Z3A.32 32 weeks gestation of pregnancy; R87.9 Unspecified abnormal finding in specimens from female genital organs
CPT/HCPCS: 76815; 80053; 80306; 83986; 84112; 85025; 96372; J0702; J7121

== ENCOUNTER → 2023-08-04 14:51 | Outpatient (BNVA) | payer MEDICAID, SELFPAY | PROVIDERS: PCP Family Medicine; Visit Provider Nurse Practitioner | DX: R39.9 Unspecified symptoms and signs involving the genitourinary system (principal) | CPT/HCPCS: 81000 ==

== ENCOUNTER → 2023-08-11 17:28 | Outpatient (BNVA) | payer MEDICAID, SELFPAY | PROVIDERS: PCP Family Medicine; Visit Provider Family Medicine | DX: J02.9 Acute pharyngitis, unspecified (principal) | CPT/HCPCS: 87880 ==

== ENCOUNTER 2023-08-23 19:29 | Emergency (ER) | payer MEDICAID, SELFPAY ==
[2023-08-23 19:39] VITALS: BP 111/69; PULSE 129; RESP 18; TEMP 36.7; O2SAT 97; BMI 25.7
[2023-08-23 20:41] LABS: Basophils % 0.7 %; Eosinophils % 0.7 %; Hematocrit 36.5 % (36-47); Lymphocytes # 0.2 10^3/uL (0.8-4.8); Lymphocytes % 15.1 %; Mean Corpuscular Hemoglobin 30.8 pg (27-33); Mean Corpuscular Volume 90.8 fl (85-98); Mean Platelet Volume 9.6 fL (7.4-10.4); Monocytes % 2.1 %; Neutrophils # 1.19 10^3/uL (1.8-7.7); Neutrophils % 81.4 %; Nucleated Red Blood Cells % 0 %; Platelet Count 279 10^3/cmm (157-399); Red Blood Count 4.02 10^6/uL (3.85-5.65); Red Cell Distribution Width 11.9 % (12.1-15.1); White Blood Count 1.46 10^3/uL (3.29-11.43)
--- NOTE | 2023-08-23 20:52 | CTR_ITS ---
PROCEDURE INFORMATION: Exam: CT Abdomen And Pelvis With Contrast Exam date and time: 08/23/2023 9:44 PM Age: 28 years old Clinical indication: Abdominal pain; Localized; Left upper quadrant (luq); Prior surgery; Surgery date: 6+ months; Surgery type: Csection x2. Cervical biopsy. Patient HX: C/O luq pain; Additional info: Left uppr quad pain TECHNIQUE: Imaging protocol: Computed tomography of the abdomen and pelvis with contrast. Radiation optimization: All CT scans at this facility use at least one of these dose optimization techniques: automated exposure control; mA and/or kV adjustment per patient size (includes targeted exams where dose is matched to clinical indication); or iterative reconstruction. Contrast material: OMNI 350; Contrast volume: 100 ml; Contrast route: INTRAVENOUS (IV); COMPARISON: No relevant prior studies available. RADIATION DOSE METRICS: Total DLP (mGy-cm): 444.76 FINDINGS: Lungs: The lung bases are clear. Liver: Unremarkable. Gallbladder and bile ducts: The gallbladder appears upper normal in size, with transverse diameter about 4 cm. No visible gallstones or other definite gallbladder abnormality by CT. Ultrasound would be more sensitive for detecting gallstones, if clinically needed. No biliary tree dilation. Pancreas: Unremarkable. Spleen: Unremarkable. Adrenal glands: Unremarkable. Kidneys and ureters: No hydronephrosis of either kidney. No visible ureteral calculus. No significant perinephric fluid or obvious inhomogeneous renal enhancement. Lack of the above findings on CT does not entirely exclude the diagnosis of acute pyelonephritis. Please correlate with clinical and laboratory evaluation. Stomach and bowel: Possibility of slightly thickened mucosa/wall in the distal stomach. This is a nonspecific appearance, and could well be transient due to poor gastric distension. This might also represent evidence for gastritis or peptic ulcer disease. Please correlate clinically. No significant bowel distention. There are no CT findings to strongly suggest diverticulitis. Appendix: The appendix is visualized and appears normal. Intraperitoneal space: No free intraperitoneal air, or ascites. Vasculature: No evidence for abdominal aortic aneurysm. Lymph nodes: No retroperitoneal adenopathy. Urinary bladder: Possibly some mild diffuse urinary bladder wall thickening. Evaluation is somewhat limited, as the bladder is not well distended. While nonspecific, this could indicate evidence for cystitis. Please correlate clinically. No visible calculus in the bladder. Reproductive: Essentially unremarkable for age. Bones/joints: No significant acute finding. Soft tissues: Very small umbilical hernia, containing only fat. CT/CT abdomen pelvis w con* [id number] IMPRESSION: 1. No free air or significant bowel distention. 2. Possible thickened mucosa/wall in the distal stomach, see above discussion. 3. The gallbladder is upper normal in size, no visible gallstones by CT. 4. Possible mild urinary bladder wall thickening, see above. 5. No hydronephrosis of either kidney. No visible ureteral calculus. No perinephric fluid, see above discussion. 6. No diverticulitis. 7. Normal appendix. 8. Other findings discussed above.
--- NOTE | 2023-08-23 20:53 | ED_ITS ---
Documented by User: Manjinder Velasquez DO 08/23/23 22:23 HPI - Abdominal Pain 2 General: Chief Complaint: Abdominal Pain Stated Complaint: abd head pounding n/v Time Seen by Provider: 08/23/23 20:39 Source: patient Mode of arrival: ambulatory Limitations: no limitations History of Present Illness: this patient presents to the emergency department because of pain predominantly in her mid and left upper abdomen. She states it has been present for several days and perhaps longer. She has previously been diagnosed with gastroesophageal reflux during her and given famotidine. She states she took famotidine but does not seem to be the same kind of pain that she has had with her gastroesophageal reflux. She had emesis today and continues to have pain. She denies any fevers or chills. She has had a prior in April and ultimately had a demise. She was told at that time during her workup during her that she had an enlarged liver and spleen this is likely an incidental finding as there was no other significance attached to that finding per the patient. She denies any fevers or chills diarrhea dysuria etc. She states the pain is worse with a deep breath or any kind of attempt to eat or drink. Associated Symptoms: Reports nausea and vomiting; Denies chills, diarrhea, dysuria and fever(s) Related Data: Patient : No Review of Systems 2 Const: Denies: fever(s) or chills Eyes: Denies: change in vision ENMT: Denies: throat pain, odynophagia, nasal discharge or nasal congestion Card: Denies: chest pain, palpitations or irregular heart rhythm Resp: Denies: dyspnea, productive cough or non-productive cough GI: Reports: abdominal pain, nausea and vomiting; Denies: diarrhea : Denies: flank pain, difficulty voiding, dysuria, urinary frequency or vaginal bleeding Musc: Denies: neck pain or extremity swelling Skin/Breast: Denies: rash or pruritus Neuro: Denies: headache(s), numbness in extremities or weakness in extremities Psych: Reports: depression; Denies: anxiety or mood swings PFSH ED 2 PFSH: Medical History Cholestasis during Adrenal gland disorder No pertinent past medical history neghx: htn,dm,thyroid,dvt/pe PCP: Dr. Rees Surgical History Hx of cone biopsy of cervix (~11/27/21) MARTHA 2 with endocervical glandular involvement. All margins uninvolved and negative for dysplasia. Performed by Dr. Hsieh. Family History Mother Hypertension Diabetes Grandmother Thyroid disease maternal Colon cancer maternal great, late 80's Denies family history of Ovarian cancer Clotting disorder Heart disease Hyperlipidemia Anesthesia complication Bleeding disorder Uterine cancer Stroke Social History Smoking and tobacco/nicotine status: former use of tobacco/nicotine Physical Exam 2 Narrative: EXAM NARRATIVE: She is alert in no acute distress answers questions in a reasonably goal directed fashion. Const: COMMON NORMALS: no acute distress, average body habitus, patient oriented x3 and healthy appearing GENERAL APPEARANCE: cooperative and comfortable HENMT: COMMON NORMALS: normocephalic, Normal nasal mucous membranes and turbinates present, moist oral mucous membranes and oropharynx normal HEAD & SCALP: normocephalic NOSE: Normal nasal mucous membranes and turbinates present Eye: COMMON NORMALS: Equal, round and reactive pupils present, EOMs intact bilaterally and conjunctivae normal CONJUNCTIVA: Yes conjunctivae normal P UPIL: Yes Equal, round and reactive pupils present Neck/C-Spine: COMMON NORMALS: full ROM, no lymphadenopathy, no JVD and Thyroid normal THYROID: Thyroid normal Chest: COMMONS NORMALS: normal inspection of the chest and normal palpation of entire chest wall Resp: COMMON NORMALS: normal respiratory effort, No retractions, No use of accessory muscles and clear to auscultation bilaterally AUSCULTATION: clear to auscultation bilaterally Cardio: COMMON NORMALS: no JVD, regular rate, regular rhythm, No murmurs present (Cardio) and Peripheral pulses 2+ throughout RATE: regular rate R HYTHM: regular rhythm PERIPHERAL PULSES: Peripheral pulses 2+ throughout GI: COMMON NORMALS: Soft to palpation and no masses INSPECTION: Yes normal to inspection PALPATION: Yes Soft to palpation, Yes Tenderness to palpation present (GI) (Epigastrium in the left upper quadrant. No skin changes ecchymosis etc.) and No Guarding due to palpation present (GI) : COMMON NORMALS: Yes no CVA tenderness BLADDER/KIDNEY EXAM: Yes no CVA tenderness Back/Pelvis: COMMON NORMALS: no CVA tenderness, thoracic and lumbar spine normal to inspection, no thoracic nor lumbar tenderness and thoraco-lumbar ROM normal Extremity: COMMON NORMALS: normal to inspection, full ROM and capillary refill normal Neuro: COMMON NORMALS: patient oriented x3, moves all extremities and no sensory deficits noted CRANIAL NERVES: Yes CN normal except as noted Psych: COMMON NORMALS: mental status grossly normal Skin: COMMON NORMALS: no rashes or lesions noted and turgor normal GENERAL SKIN EXAM: no rashes or lesions noted and turgor normal Course 2 Reevaluation(s): Reevaluation #1: I was informed by the RN that the patient had declined her initial IV attempt. I went and discussed the need for IV access to fully evaluate her and she agreed to have the IV and fluids etc. with a CT scan pending Time: 21:18 Reevaluation #2: Case will be turned over to Dr. Campbell for final disposition. Time: 22:23 Vital Signs: Vital signs: Vital Signs Temperature 98.1 F 08/23/23 19:39 Pulse Rate 96 08/24/23 00:28 Respiratory Rate 16 08/24/23 00:28 Blood Pressure 101/60 08/24/23 00:28 Pulse Oximetry 98 08/24/23 00:28 Oxygen Delivery Me thod Room Air 08/23/23 19:39 MDM - Abdominal Pain Medical Decision Making This patient presented to the emergency department because of left upper quadrant pain that which she was concerned about. She did not feel like it was the same pain she to be been experiencing with her gastroesophageal reflux disease. She wondered if it was related to the enlarged spleen and liver that she was told she had during her workup for Manera embolus and other conditions. He had some episodes of vomiting today but no known exposure to infectious disease recent travel etc. Clinical examination revealed tenderness in the left upper quadrant but no other significant findings no evidence of an acute abdomen. Workup to include laboratories and imaging was initiated to determine if there was any significant pathology contributing to her current presentation. Lab Data 08/23/23 20:33 08/23/23 20:33 Labs/Radiology: Radiology Impressions Abdomen/Pelvis CT 08/23/23 20:52 IMPRESSION: 1. No free air or significant bowel distention. 2. Possible thickened mucosa/wall in the distal stomach, see above discussion. 3. The gallbladder is upper normal in size, no visible gallstones by CT. 4. Possible mild urinary bladder wall thickening, see above. 5. No hydronephrosis of either kidney. No visible ureteral calculus. No perinephric fluid, see above discussion. 6. No diverticulitis. 7. Normal appendix. 8. Other findings discussed above. Laboratory Results WBC 1.46 10^3/uL (3.29-11.43) L 08/23/23 20: RBC 4.02 10^6/uL (3.85-5.65) 08/23/23 20:33 Hgb 12.40 g/dL (11.27-16.99) 08/23/23 20: Hct 36.5 % (36-47) 08/23/23 20: MCV 90.8 fl (85-98) 08/23/23 20: MCH 30.8 pg (27-33) 08/23/23: MCHC 34.0 g/dL (30-55) 08/23/23 20: RDW 11.9 % (12.1-15.1) L 08/23/23 20: Plt Count 279 10^3/cmm (157-399) 08/23/23: MPV 9.6 fL (7.4-10.4) 08/23/23 20: Neut % (Auto) 81.4 % 08/23/23 20: Lymph % (Auto) 15.1 % 08/23/23: [place] % (Auto) 2.1 % 08/23/23: Eos % (Auto) 0.7 % 08/23/23 20: Baso % (Auto) 0.7 % 08/23/23 20: Neut # (Auto) 1.19 10^3/uL (1.8-7.7) L 08/23/23 20: Lymph # (Auto) 0.2 10^3/uL (0.8-4.8) L 08/23/23 20: [place] # (Auto) 0.0 10^3/uL (0.2-0.9) L 08/23/23 20: Eos # (Auto) 0.0 10^3/uL (0.0-0.8) 08/23/23 20:33 Baso # (Auto) 0.0 10^3/uL (0.0-0.1) 08/23/23 20: Nucleated RBC % (auto) 0 % 08/23/23 20: Nucleated RBCs # 0.0 /100WBC 08/23/23 20:33 Sodium 139 mmol/L (136-145) 08/23/23 20:33 Potassium 3.3 mmol/L (3.5-5.1) L 08/23/23 20:33 Chloride 104 mmol/L (98-107) 08/23/23 20:33 Carbon Dioxide 25 mmol/L (22-29) 08/23/23 20:33 Anion Gap 13.3 (5-19) 08/23/23 20:33 BUN 10 mg/dL (6-20) 08/23/23 20:33 Creatinine 0.7 mg/dL (0.5-0.9) 08/23/23 20:33 GFR Calculation 98.3 mL/min (90-130) 08/23/23 20:33 Glucose 129 mg/dL (65-115) H 08/23/23 20:33 Calculated Osmolality 289 mOsm/kg (285-295) 08/23/23 20:33 Calcium 8.7 mg/dL (8.5-10.5) 08/23/23 20:33 Total Bilirubin 0.2 mg/dL (0.15-1.2) 08/23/23 20:33 AST 33 U/L (0-32) H 08/23/23 20:33 ALT 48 U/L (0-33) H 08/23/23 20:33 Alkaline Phosphatase 100 U/L (35-105) 08/23/23 20:33 Total Protein 7.3 g/dL (6.6-8.7) 08/23/23 20: Albumin 4.3 g/dL (3.5-5.2) 08/23/23 20: Globulin 3.0 g/dL (1.3-4.6) 08/23/23 20:33 Lipase 26 U/L (13-60) 08/23/23 20:33 HCG, Qual Negative (Negative) 08/23/23 20:33 Discharge Plan Discharge Patient Disposition: Home Clinical Impression: Abdominal pain, PUD (peptic ulcer disease) Condition: Stable Prescriptions: New pantoprazole 40 mg tablet,delayed release (DR/EC) 40 mg PO DAILY Qty: 30 0RF levofloxacin 500 mg tablet 500 mg PO DAILY 10 Days Qty: 10 0RF amoxicillin 875 mg tablet 875 mg PO BID Qty: 20 0RF No Action amoxicillin-pot clavulanate 875-125 mg tablet 1 tab PO BID 5 Days Qty: 10 0RF famotidine 40 mg tablet 40 mg PO DAILY Qty: 30 0RF ferrous sulfate [iron] 325 mg (65 mg iron) Tablet 325 mg PO DAILY PNV cmb#95-ferrous fumarate-FA [ Multivitamins] 28 mg iron- 800 mcg Tablet 1 tab PO DAILY Discharge Orders: Discharge ED (Routine); Ordered 08/23/23 Ordered By: Hubert Campbell Referrals: Lionel Rees MD [Primary Care Provider] - 1-3 days Patient Instructions: Peptic Ulcer (ED), Abdominal Pain (ED), Opioid Safety, Pain Management Activity Restrictions/Additional Instructions: Medication as directed. Return for fever greater than 100, vomiting liquids or medications, blood in the stool or vomit, other concerning symptoms. See your doctor this week. You should have your blood count rechecked at some point in the near future, as it is low. Further outpatient testing may be warranted. Coding Level of Care Code ED Manager Relationship for Chg Fwd Documented by User: Hubert Campbell DO 08/24/23 02:17 HPI - Abdominal Pain 2 General: Chief Complaint: Abdominal Pain Stated Complaint: abd head pounding n/v Time Seen by Provider: 08/23/23 20:39 PFSH ED 2 PFSH: Medical History Cholestasis during Adrenal gland disorder No pertinent past medical history neghx: htn,dm,thyroid,dvt/pe PCP: Dr. Rees Surgical History Hx of cone biopsy of cervix (~11/27/21) MARTHA 2 with endocervical glandular involvement. All margins uninvolved and negative for dysplasia. Performed by Dr. Hsieh. Family History Mother Hypertension Diabetes Grandmother Thyroid disease maternal Colon cancer maternal great, late 80's Denies family history of Ovarian cancer Clotting disorder Heart disease Hyperlipidemia Anesthesia complication Bleeding disorder Uterine cancer Stroke Social History Smoking and tobacco/nicotine status: former use of tobacco/nicotine Course 2 Vital Signs: Vital signs: Vital Signs Temperature 98.1 F 08/23/23 19:39 Pulse Rate 96 08/24/23 00:28 Respiratory Rate 16 08/24/23 00:28 Blood Pressure 101/60 08/24/23 00:28 Pulse Oximetry 98 08/24/23 00:28 Oxygen Delivery Me thod Room Air 08/23/23 19:39 MDM - Abdominal Pain Medical Decision Making This patient presented to the emergency department because of left upper quadrant pain that which she was concerned about. She did not feel like it was the same pain she to be been experiencing with her gastroesophageal reflux disease. She wondered if it was related to the enlarged spleen and liver that she was told she had during her workup for Manera embolus and other conditions. He had some episodes of vomiting today but no known exposure to infectious disease recent travel etc. Clinical examination revealed tenderness in the left upper quadrant but no other significant findings no evidence of an acute abdomen. Workup to include laboratories and imaging was initiated to determine if there was any significant pathology contributing to her current presentation. Patient taken over at shift change. Pending CT results. CT shows normal liver and spleen. There is thickened mucosa in the wall of the distal stomach likely the cause of her symptoms. She will be treated for peptic ulcer disease. Results were explained and she understands. Lab Data 08/23/23 20:33 08/23/23 20:33 Labs/Radiology: Radiology Impressions Abdomen/Pelvis CT 08/23/23 20:52 IMPRESSION: 1. No free air or significant bowel distention. 2. Possible thickened mucosa/wall in the distal stomach, see above discussion. 3. The gallbladder is upper normal in size, no visible gallstones by CT. 4. Possible mild urinary bladder wall thickening, see above. 5. No hydronephrosis of either kidney. No visible ureteral calculus. No perinephric fluid, see above discussion. 6. No diverticulitis. 7. Normal appendix. 8. Other findings discussed above. Laboratory Results WBC 1.46 10^3/uL (3.29-11.43) L 08/23/23 20: RBC 4.02 10^6/uL (3.85-5.65) 08/23/23 20: Hgb 12.40 g/dL (11.27-16.99) 08/23/23 20: Hct 36.5 % (36-47) 08/23/23: MCV 90.8 fl (85-98) 08/23/23: MCH 30.8 pg (27-33) 08/23/23: MCHC 34.0 g/dL (30-55) 08/23/23: RDW 11.9 % (12.1-15.1) L 08/23/23 20: Plt Count 279 10^3/cmm (157-399) 08/23/23: MPV 9.6 fL (7.4-10.4) 08/23/23: Neut % (Auto) 81.4 % 08/23/23 20: Lymph % (Auto) 15.1 % 08/23/23: [place] % (Auto) 2.1 % 08/23/23: Eos % (Auto) 0.7 % 08/23/23: Baso % (Auto) 0.7 % 08/23/23 20: Neut # (Auto) 1.19 10^3/uL (1.8-7.7) L 08/23/23 20: Lymph # (Auto) 0.2 10^3/uL (0.8-4.8) L 08/23/23: [place] # (Auto) 0.0 10^3/uL (0.2-0.9) L 08/23/23 20: Eos # (Auto) 0.0 10^3/uL (0.0-0.8) 08/23/23 20:33 Baso # (Auto) 0.0 10^3/uL (0.0-0.1) 08/23/23 20: Nucleated RBC % (auto) 0 % 08/23/23 20: Nucleated RBCs # 0.0 /100WBC 08/23/23 20:33 Sodium 139 mmol/L (136-145) 08/23/23 20:33 Potassium 3.3 mmol/L (3.5-5.1) L 08/23/23 20: Chloride 104 mmol/L (98-107) 08/23/23 20: Carbon Dioxide 25 mmol/L (22-29) 08/23/23 20:33 Anion Gap 13.3 (5-19) 08/23/23 20: BUN 10 mg/dL (6-20) 08/23/23 20: Creatinine 0.7 mg/dL (0.5-0.9) 08/23/23 20:33 GFR Calculation 98.3 mL/min (90-130) 08/23/23 20: Glucose 129 mg/dL (65-115) H 08/23/23 20:33 Calculated Osmolality 289 mOsm/kg (285-295) 08/23/23 20: Calcium 8.7 mg/dL (8.5-10.5) 08/23/23 20: Total Bilirubin 0.2 mg/dL (0.15-1.2) 08/23/23 20:33 AST 33 U/L (0-32) H 08/23/23 20: ALT 48 U/L (0-33) H 08/23/23 20: Alkaline Phosphatase 100 U/L (35-105) 08/23/23 20: Total Protein 7.3 g/dL (6.6-8.7) 08/23/23 20: Albumin 4.3 g/dL (3.5-5.2) 08/23/23 20: Globulin 3.0 g/dL (1.3-4.6) 08/23/23 20: Lipase 26 U/L (13-60) 08/23/23 20:33 HCG, Qual Negative (Negative) 08/23/23 20: All radiology interpretation(s) finalized by discharge Discharge Plan Discharge Patient Disposition: Home Clinical Impression: Abdominal pain, PUD (peptic ulcer disease) Condition: Stable Prescriptions: New pantoprazole 40 mg tablet,delayed release (DR/EC) 40 mg PO DAILY Qty: 30 0RF levofloxacin 500 mg tablet 500 mg PO DAILY 10 Days Qty: 10 0RF amoxicillin 875 mg tablet 875 mg PO BID Qty: 20 0RF No Action amoxicillin-pot clavulanate 875-125 mg tablet 1 tab PO BID 5 Days Qty: 10 0RF famotidine 40 mg tablet 40 mg PO DAILY Qty: 30 0RF ferrous sulfate [iron] 325 mg (65 mg iron) Tablet 325 mg PO DAILY PNV cmb#95-ferrous fumarate-FA [ Multivitamins] 28 mg iron- 800 mcg Tablet 1 tab PO DAILY Discharge Orders: Discharge ED (Routine); Ordered 08/23/23 Ordered By: Hubert Campbell Referrals: Lionel Rees MD [Primary Care Provider] - 1-3 days Patient Instructions: Peptic Ulcer (ED), Abdominal Pain (ED), Opioid Safety, Pain Management Activity Restrictions/Additional Instructions: Medication as directed. Return for fever greater than 100, vomiting liquids or medications, blood in the stool or vomit, other concerning symptoms. See your doctor this week. You should have your blood count rechecked at some point in the near future, as it is low. Further outpatient testing may be warranted. Coding Level of Care Code ED Manager Relationship for Marcella Chavez
[2023-08-23 20:58] LABS: HCG, Serum Qual Negative (Negative)
[2023-08-23 21:00] LABS: Alanine Aminotransferase 48 U/L (0-33); Albumin Level 4.3 g/dL (3.5-5.2); Alkaline Phosphatase 100 U/L (35-105); Anion Gap 13.3 (5-19); Aspartate Amino Transferase 33 U/L (0-32); Blood Urea Nitrogen 10 mg/dL (6-20); Calcium 8.7 mg/dL (8.5-10.5); Carbon Dioxide 25 mmol/L (22-29); Chloride 104 mmol/L (98-107); Creatinine Clr Calc Pharmacy 111.3756; Glomerular Filtration Rate 98.3 mL/min (90-130); Glucose 129 mg/dL (65-115); Lipase 26 U/L (13-60); Osmolality Calculated 289 mOsm/kg (285-295); Potassium 3.3 mmol/L (3.5-5.1); Sodium 139 mmol/L (136-145); Total Bilirubin 0.2 mg/dL (0.15-1.2); Total Protein 7.3 g/dL (6.6-8.7)
[2023-08-23] MEDS: iohexol 350 mg/mL 500 mL Btl (per mL) IV (21:45)
[2023-08-24 00:28] VITALS: BP 101/60; PULSE 96; RESP 16; O2SAT 98
== END 2023-08-24 00:10 | disposition home or self-care (01) ==
PROVIDERS: Nurse Practitioner Family; Emergency Provider Emergency Medicine; PCP Family Medicine
DX: K27.9 Peptic ulcer, site unspecified, unspecified as acute or chronic, without hemorrhage or perforation (principal); Z87.891 Personal history of nicotine dependence; R10.12 Left upper quadrant pain
CPT/HCPCS: 36415; 74177; 80053; 83690; 84703; 85025; 99285; Q9967

== ENCOUNTER 2023-10-27 22:52 | Emergency (ER) | payer MEDICAID, SELFPAY ==
[2023-10-27 22:56] VITALS: BP 138/89; PULSE 97; RESP 16; TEMP 36.8; O2SAT 98
[2023-10-27 23:31] VITALS: BP 123/76; PULSE 76; RESP 16; O2SAT 100
--- NOTE | 2023-10-27 23:53 | W.ED.ABDPA2 ---
Documented by User: KECIA Duff 10/30/23 09:05 HPI - Abdominal Pain General: Chief Complaint: Abdominal Pain Stated Complaint: ABD Pain Time Seen by Provider: 10/27/23 23:31 Source: patient Mode of arrival: ambulatory Limitations: no limitations History of Present Illness: Patient is a 28-year-old female presenting to the emergency department complaining of left lower quadrant abdominal pain over the past few days. Patient notes pertinent past history of H. pylori infection of which she treated triple therapy a couple months ago. She states she recently underwent testing to reassess for H. pylori, and this was negative. She states that she has also been having dark-colored stools, she states that they are not black or tarry, however they just appeared dark and green, associated with some mucus. She states that she only drinks water out of a bottle, and denies any recent sick contacts. Also last time she took antibiotics was 2 months ago. She also has a history of acid reflux, states that she is having flareups of this as well. No urinary symptoms, chest pain, shortness of breath, constipation, or other symptoms to note. She does note that her recent stools have been very loose. She still has her appendix and gallbladder. MD elicited complaint: abdominal pain Pertinent past history: other (H. pylori) Onset (ago): day(s) (5) Pain Consistency: constant Location: LLQ Severity: mild Quality: cramping Radiation: none Exacerbating factors: nothing Relieving factors: nothing Associated Symptoms: Reports diarrhea, nausea and other ( dark green stools ); Denies bloating, chills, constipation, dysuria, fever(s), hematochezia, melena and vomiting Related Data: Date of Last Menstrual Period: 10/16/23 Review of Systems General: Reports: 10 or more systems reviewed and unremarkable except in HPI and below Const: Denies: fever(s), chills, change in appetite, change in weight or diaphoresis ENMT: Denies: throat pain or hoarseness Card: Denies: chest pain, palpitations or lightheadedness Resp: Denies: dyspnea, productive cough or wheezing GI: Reports: abdominal pain, nausea, diarrhea and other ( dark green stools ); Denies: vomiting, constipation, bloating, hematochezia or melena : Denies: flank pain, difficulty voiding, dysuria, urinary frequency or urinary urgency Musc: Denies: neck pain or back pain Skin/Breast: Denies: rash or new lesions Neuro: Denies: headache(s) or dizziness PFSH ED PFSH: Medical History Cholestasis during Adrenal gland disorder No pertinent past medical history neghx: htn,dm,thyroid,dvt/pe PCP: Dr. Rees Surgical History Hx of cone biopsy of cervix (~11/27/21) MARTHA 2 with endocervical glandular involvement. All margins uninvolved and negative for dysplasia. Performed by Dr. Hsieh. Family History Mother Hypertension Diabetes Grandmother Thyroid disease maternal Colon cancer maternal great, late 80's Denies family history of Ovarian cancer Clotting disorder Heart disease Hyperlipidemia Anesthesia complication Bleeding disorder Uterine cancer Stroke Social History Smoking and tobacco/nicotine status: former use of tobacco/nicotine Female Reproductive History: Date of last menstrual period: 10/16/23 Physical Exam Const: COMMON NORMALS: no acute distress, average body habitus, patient oriented x3, no limitations, healthy appearing, alert and well nourished GENERAL APPEARANCE: cooperative and comfortable ORIENTATION/CONSCIOUSNESS: Yes awake HENMT: COMMON NORMALS: normocephalic, atraumatic, hearing grossly normal bilaterally, external ears normal, Normal external nose present, Normal nasal mucous membranes and turbinates present and moist oral mucous membranes HEAD & SCALP: normocephalic and atraumatic NOSE: Normal external nose present and Normal nasal mucous membranes and turbinates present EXTERNAL EAR: Yes external ears normal Eye: COMMON NORMALS: Equal, round and reactive pupils present, EOMs intact bilaterally, conjunctivae normal and normal visual mack by confrontation CONJUNCTIVA: Yes conjunctivae normal PUPIL: Yes Equal, round and reactive pupils present Neck/C-Spine: COMMON NORMALS: full ROM, supple, no meningeal signs and no JVD Resp: COMMON NORMALS: normal respiratory effort, No retractions, No use of accessory muscles and clear to auscultation bilaterally AUSCULTATION: clear to auscultation bilaterally, no crackles, no rales, no rhonchi and no wheezes Cardio: COMMON NORMALS: no JVD, regular rate, regular rhythm, S1 normal heart sound present, S2 normal heart sound present, No gallops present (Cardio), No clicks present (Cardio), No murmurs present (Cardio), No rub (Cardio) and Peripheral pulses 2+ throughout RATE: regular rate RHYTHM: regular rhythm HEART SOUNDS: S1 normal heart sound present and S2 normal heart sound present PERIPHERAL PULSES: Peripheral pulses 2+ throughout GI: COMMON NORMALS: Normal to inspection, nondistended, normoactive bowel sounds present, Soft to palpation, No hepatosplenomegaly present and no masses INSPECTION: Yes central obesity AUSCULTATION: Yes normoactive bowel sounds PALPATION: Yes Soft to palpation, Yes Tenderness to palpation present (GI) (Diffuse reproducible tenderness to palpation, left lower quadrant worst), No Guarding due to palpation present (GI), No Rigid due to palpation and Yes No hepatosplenomegaly present RECTAL EXAM: deferred Extremity: COMMON NORMALS: normal to inspection and full ROM Neuro: COMMON NORMALS: patient oriented x3, moves all extremities, no focal motor deficits and no sensory deficits noted SENSORIUM/ORIENTATION: Yes alert MENINGEAL SIGNS: Yes no meningeal signs Psych: COMMON NORMALS: mental status grossly normal, cooperative and speech normal SPEECH: Yes normal speech Skin: COMMON NORMALS: no rashes or lesions noted GENERAL SKIN EXAM: no rashes or lesions noted Course Vital Signs: Vital signs: Vital Signs Temperature 98.2 F 10/28/23 02:51 Pulse Rate 88 10/28/23 02:51 Respiratory Rate 16 10/28/23 02:51 Blood Pressure 112/81 10/28/23 02:51 Pulse Oximetry 97 10/28/23 02:51 Oxygen Delivery Me thod Room Air 10/27/23 23:31 MDM - Abdominal Pain Lab Data 10/27/23 23:54 10/27/23 23:54 Labs/Radiology: Radiology Impressions Abdomen/Pelvis CT 10/28/23 00:26 IMPRESSION: No acute intra-abdominal or pelvic process. Laboratory Results WBC 5.18 10^3/uL (3.29-11.43) 10/27/23 23:54 RBC 3.79 10^6/uL (3.85-5.65) L 10/27/23 23:54 Hgb 11.80 g/dL (11.27-16.99) 10/27/23 23:54 Hct 35.2 % (36-47) L 10/27/23 23:54 MCV 92.9 fl (85-98) 10/27/23 23:54 MCH 31.1 pg (27-33) 10/27/23 23:54 MCHC 33.5 g/dL (30-55) 10/27/23 23:54 RDW 12.6 % (12.1-15.1) 10/27/23 23:54 Plt Count 278 10^3/cmm (157-399) 10/27/23 23:54 MPV 10.0 fL (7.4-10.4) 10/27/23 23:54 Neut % (Auto) 53.6 % 10/27/23 23:54 Lymph % (Auto) 37.1 % 10/27/23 23:54 [place] % (Auto) 6.6 % 10/27/23 23:54 Eos % (Auto) 1.5 % 10/27/23 23:54 Baso % (Auto) 1.0 % 10/27/23 23:54 Neut # (Auto) 2.78 10^3/uL (1.8-7.7) 10/27/23 23:54 Lymph # (Auto) 1.9 10^3/uL (0.8-4.8) 10/27/23 23:54 [place] # (Auto) 0.3 10^3/uL (0.2-0.9) 10/27/23 23:54 Eos # (Auto) 0.1 10^3/uL (0.0-0.8) 10/27/23 23:54 Baso # (Auto) 0.1 10^3/uL (0.0-0.1) 10/27/23 23:54 Nucleated RBC % (auto) 0 % 10/27/23 23:54 Nucleated RBCs # 0.0 /100WBC 10/27/23 23:54 Sodium 141 mmol/L (136-145) 10/27/23 23:54 Potassium 4.0 mmol/L (3.5-5.1) 10/27/23 23:54 Chloride 103 mmol/L (98-107) 10/27/23 23:54 Carbon Dioxide 25 mmol/L (22-29) 10/27/23 23:54 Anion Gap 17.0 (5-19) 10/27/23 23:54 BUN 10 mg/dL (6-20) 10/27/23 23:54 Creatinine 0.6 mg/dL (0.5-0.9) 10/27/23 23:54 GFR Calculation 117.4 mL/min (90-130) 10/27/23 23:54 Glucose 115 mg/dL (65-115) 10/27/23 23:54 Calculated Osmolality 292 mOsm/kg (285-295) 10/27/23 23:54 Calcium 9.2 mg/dL (8.5-10.5) 10/27/23 23:54 Total Bilirubin 0.4 mg/dL (0.15-1.2) 10/27/23 23:54 AST 20 U/L (0-32) 10/27/23 23:54 ALT 36 U/L (0-33) H 10/27/23 23:54 Alkaline Phosphatase 81 U/L (35-105) 10/27/23 23:54 Total Protein 7.5 g/dL (6.6-8.7) 10/27/23 23:54 Albumin 4.4 g/dL (3.5-5.2) 10/27/23 23:54 Globulin 3.1 g/dL (1.3-4.6) 10/27/23 23:54 Lipase 30 U/L (13-60) 10/27/23 23:54 HCG, Qual Negative (Negative) 10/27/23 23:54 Urine Color Yellow (Yellow) 10/28/23 00:48 Urine Appearance Clear (CLEAR) 10/28/23 00:48 Urine pH 6 (5-7) 10/28/23 00:48 Ur Specific [place] 1.020 (1.005-1.030) 10/28/23 00:48 Urine Protein Neg (Negative) 10/28/23 00:48 Urine Glucose (UA) Norm (Normal) 10/28/23 00:48 Urine Ketones Negative (Negative) 10/28/23 00:48 Urine Blood Neg (Negative) 10/28/23 00:48 Urine Nitrate Negative (Negative) 10/28/23 00:48 Urine Bilirubin Neg (Negative) 10/28/23 00:48 Urine Urobilinogen Neg mg/dL (Negative) 10/28/23 00:48 Ur Leukocyte Esterase Negative (Negative) 10/28/23 00:48 All radiology interpretation(s) finalized by discharge Discharge Plan Discharge Patient Disposition: Home Clinical Impression: Abdominal pain Qualifiers: Abdominal location: left lower quadrant Qualified Code(s): R10.32 - Left lower quadrant pain Condition: Stable Prescriptions: No Action amoxicillin-pot clavulanate 875-125 mg tablet 1 tab PO BID 5 Days Qty: 10 0RF famotidine 40 mg tablet 40 mg PO DAILY Qty: 30 0RF ferrous sulfate [iron] 325 mg (65 mg iron) Tablet 325 mg PO DAILY PNV cmb#95-ferrous fumarate-FA [ Multivitamins] 28 mg iron- 800 mcg Tablet 1 tab PO DAILY pantoprazole 40 mg tablet,delayed release (DR/EC) 40 mg PO DAILY Qty: 30 0RF amoxicillin 875 mg tablet 875 mg PO BID Qty: 20 0RF Discharge Orders: Discharge ED (Routine); Ordered 10/28/23 Ordered By: Ezequiel Lira Referrals: Lionel Rees MD [Primary Care Provider] - 1 week Patient Instructions: Abdominal Pain (ED) Activity Restrictions/Additional Instructions: Your evaluation in ER that included lab work as well as CT scan did not reveal any acute cause of your abdominal pain. You may benefit from further evaluation. Please follow-up with your family practice physician within the next 7 days for further evaluation and treatment. Coding Level of Care Code ED Sewing Machine Adjuster for Chg Fwd Documented by User: Ezequiel Lira DO 10/28/23 02:41 HPI - Abdominal Pain General: Chief Complaint: Abdominal Pain Stated Complaint: ABD Pain Time Seen by Provider: 10/27/23 23:31 PFS ED PFSH: Medical History Cholestasis during Adrenal gland disorder No pertinent past medical history neghx: htn,dm,thyroid,dvt/pe PCP: Dr. Rees Surgical History Hx of cone biopsy of cervix (~11/27/21) MARTHA 2 with endocervical glandular involvement. All margins uninvolved and negative for dysplasia. Performed by Dr. Hsieh. Family History Mother Hypertension Diabetes Grandmother Thyroid disease maternal Colon cancer maternal great, late 80's Denies family history of Ovarian cancer Clotting disorder Heart disease Hyperlipidemia Anesthesia complication Bleeding disorder Uterine cancer Stroke Social History Smoking and tobacco/nicotine status: former use of tobacco/nicotine Course Vital Signs: Vital signs: Vital Signs Temperature 98.2 F 10/28/23 02:51 Pulse Rate 88 10/28/23 02:51 Respiratory Rate 16 10/28/23 02:51 Blood Pressure 112/81 10/28/23 02:51 Pulse Oximetry 97 10/28/23 02:51 Oxygen Delivery De thod Room Air 10/27/23 23:31 MDM - Abdominal Pain Medical Decision Making Patient's care turned over to ok by midlevel at the end of his shift. Lab work was reviewed as well as CT scan, these results was discussed with the patient. Patient be discharged from the ER to follow-up with her PCP for further evaluation. Lab Data 10/27/23 23:54 10/27/23 23:54 Labs/Radiology: Radiology Impressions Abdomen/Pelvis CT 10/28/23 00:26 IMPRESSION: No acute intra-abdominal or pelvic process. Laboratory Results WBC 5.18 10^3/uL (3.29-11.43) 10/27/23 23:54 RBC 3.79 10^6/uL (3.85-5.65) L 10/27/23 23:54 Hgb 11.80 g/dL (11.27-16.99) 10/27/23 23:54 Hct 35.2 % (36-47) L 10/27/23 23:54 MCV 92.9 fl (85-98) 10/27/23 23:54 MCH 31.1 pg (27-33) 10/27/23 23:54 MCHC 33.5 g/dL (30-55) 10/27/23 23:54 RDW 12.6 % (12.1-15.1) 10/27/23 23:54 Plt Count 278 10^3/cmm (157-399) 10/27/23 23:54 MPV 10.0 fL (7.4-10.4) 10/27/23 23:54 Neut % (Auto) 53.6 % 10/27/23 23:54 Lymph % (Auto) 37.1 % 10/27/23 23:54 [place] % (Auto) 6.6 % 10/27/23 23:54 Eos % (Auto) 1.5 % 10/27/23 23:54 Baso % (Auto) 1.0 % 10/27/23 23:54 Neut # (Auto) 2.78 10^3/uL (1.8-7.7) 10/27/23 23:54 Lymph # (Auto) 1.9 10^3/uL (0.8-4.8) 10/27/23 23:54 [place] # (Auto) 0.3 10^3/uL (0.2-0.9) 10/27/23 23:54 Eos # (Auto) 0.1 10^3/uL (0.0-0.8) 10/27/23 23:54 Baso # (Auto) 0.1 10^3/uL (0.0-0.1) 10/27/23 23:54 Nucleated RBC % (auto) 0 % 10/27/23 23:54 Nucleated RBCs # 0.0 /100WBC 10/27/23 23:54 Sodium 141 mmol/L (136-145) 10/27/23 23:54 Potassium 4.0 mmol/L (3.5-5.1) 10/27/23 23:54 Chloride 103 mmol/L (98-107) 10/27/23 23:54 Carbon Dioxide 25 mmol/L (22-29) 10/27/23 23:54 Anion Gap 17.0 (5-19) 10/27/23 23:54 BUN 10 mg/dL (6-20) 10/27/23 23:54 Creatinine 0.6 mg/dL (0.5-0.9) 10/27/23 23:54 GFR Calculation 117.4 mL/min (90-130) 10/27/23 23:54 Glucose 115 mg/dL (65-115) 10/27/23 23:54 Calculated Osmolality 292 mOsm/kg (285-295) 10/27/23 23:54 Calcium 9.2 mg/dL (8.5-10.5) 10/27/23 23:54 Total Bilirubin 0.4 mg/dL (0.15-1.2) 10/27/23 23:54 AST 20 U/L (0-32) 10/27/23 23:54 ALT 36 U/L (0-33) H 10/27/23 23:54 Alkaline Phosphatase 81 U/L (35-105) 10/27/23 23:54 Total Protein 7.5 g/dL (6.6-8.7) 10/27/23 23:54 Albumin 4.4 g/dL (3.5-5.2) 10/27/23 23:54 Globulin 3.1 g/dL (1.3-4.6) 10/27/23 23:54 Lipase 30 U/L (13-60) 10/27/23 23:54 HCG, Qual Negative (Negative) 10/27/23 23:54 Urine Color Yellow (Yellow) 10/28/23 00:48 Urine Appearance Clear (CLEAR) 10/28/23 00:48 Urine pH 6 (5-7) 10/28/23 00:48 Ur Specific [place] 1.020 (1.005-1.030) 10/28/23 00:48 Urine Protein Neg (Negative) 10/28/23 00:48 Urine Glucose (UA) Norm (Normal) 10/28/23 00:48 Urine Ketones Negative (Negative) 10/28/23 00:48 Urine Blood Neg (Negative) 10/28/23 00:48 Urine Nitrate Negative (Negative) 10/28/23 00:48 Urine Bilirubin Neg (Negative) 10/28/23 00:48 Urine Urobilinogen Neg mg/dL (Negative) 10/28/23 00:48 Ur Leukocyte Esterase Negative (Negative) 10/28/23 00:48 Discharge Plan Discharge Patient Disposition: Home Clinical Impression: Abdominal pain Qualifiers: Abdominal location: left lower quadrant Qualified Code(s): R10.32 - Left lower quadrant pain Condition: Stable Prescriptions: No Action amoxicillin-pot clavulanate 875-125 mg tablet 1 tab PO BID 5 Days Qty: 10 0RF famotidine 40 mg tablet 40 mg PO DAILY Qty: 30 0RF ferrous sulfate [iron] 325 mg (65 mg iron) Tablet 325 mg PO DAILY PNV cmb#95-ferrous fumarate-FA [ Multivitamins] 28 mg iron- 800 mcg Tablet 1 tab PO DAILY pantoprazole 40 mg tablet,delayed release (DR/EC) 40 mg PO DAILY Qty: 30 0RF amoxicillin 875 mg tablet 875 mg PO BID Qty: 20 0RF Discharge Orders: Discharge ED (Routine); Ordered 10/28/23 Ordered By: Ezequiel Lira Referrals: Lionel Rees MD [Primary Care Provider] - 1 week Patient Instructions: Abdominal Pain (ED) Activity Restrictions/Additional Instructions: Your evaluation in ER that included lab work as well as CT scan did not reveal any acute cause of your abdominal pain. You may benefit from further evaluation. Please follow-up with your family practice physician within the next 7 days for further evaluation and treatment. Coding Level of Care Code ED Sewing Machine Adjuster for Marcella Chavez
[2023-10-28 00:02] LABS: Basophils # 0.1 10^3/uL (0.0-0.1); Eosinophils # 0.1 10^3/uL (0.0-0.8); Eosinophils % 1.5 %; Hematocrit 35.2 % (36-47); Lymphocytes # 1.9 10^3/uL (0.8-4.8); Lymphocytes % 37.1 %; Mean Corpuscular HGB Conc 33.5 g/dL (30-55); Mean Corpuscular Hemoglobin 31.1 pg (27-33); Mean Corpuscular Volume 92.9 fl (85-98); Monocytes # 0.3 10^3/uL (0.2-0.9); Monocytes % 6.6 %; Neutrophils # 2.78 10^3/uL (1.8-7.7); Neutrophils % 53.6 %; Nucleated Red Blood Cells % 0 %; Platelet Count 278 10^3/cmm (157-399); Red Blood Count 3.79 10^6/uL (3.85-5.65); Red Cell Distribution Width 12.6 % (12.1-15.1); White Blood Count 5.18 10^3/uL (3.29-11.43)
[2023-10-28 00:16] LABS: HCG, Serum Qual Negative (Negative)
[2023-10-28 00:18] LABS: Alanine Aminotransferase 36 U/L (0-33); Albumin Level 4.4 g/dL (3.5-5.2); Alkaline Phosphatase 81 U/L (35-105); Aspartate Amino Transferase 20 U/L (0-32); Blood Urea Nitrogen 10 mg/dL (6-20); Calcium 9.2 mg/dL (8.5-10.5); Carbon Dioxide 25 mmol/L (22-29); Chloride 103 mmol/L (98-107); Creatinine Clr Calc Pharmacy 129.9382; Globulin 3.1 g/dL (1.3-4.6); Glomerular Filtration Rate 117.4 mL/min (90-130); Glucose 115 mg/dL (65-115); Lipase 30 U/L (13-60); Osmolality Calculated 292 mOsm/kg (285-295); Sodium 141 mmol/L (136-145); Total Bilirubin 0.4 mg/dL (0.15-1.2); Total Protein 7.5 g/dL (6.6-8.7)
--- NOTE | 2023-10-28 00:26 | CTR_ITS ---
PROCEDURE INFORMATION: Exam: CT Abdomen And Pelvis With Contrast Exam date and time: 10/28/2023 1:04 AM Age: 28 years old Clinical indication: Abdominal pain; Additional info: Llq pain, dark stools TECHNIQUE: Imaging protocol: Computed tomography of the abdomen and pelvis with contrast. Radiation optimization: All CT scans at this facility use at least one of these dose optimization techniques: automated exposure control; mA and/or kV adjustment per patient size (includes targeted exams where dose is matched to clinical indication); or iterative reconstruction. Contrast material: OMNI 350; Contrast volume: 100 ml; Contrast route: INTRAVENOUS (IV); COMPARISON: CT abdomen pelvis w con* [id number] 08/23/2023 9:44 PM RADIATION DOSE METRICS: Total DLP (mGy-cm): 427 FINDINGS: Lungs: The lung bases are clear. Heart: Heart size is within normal limits. There is no pericardial effusion or pericardial thickening. Liver: The liver is normal. No hepatic masses are identified. Gallbladder and biliary ducts: The gallbladder is contracted. There is no ductal dilatation. Pancreas: The pancreas is normal. Spleen: The spleen is normal. Adrenal glands: The adrenal glands are normal. Kidneys and ureters: There is normal enhancement of the kidneys. No renal calcifications are identified. There is no hydronephrosis. Stomach and bowel: There is no large or small bowel obstruction. There is no evidence of bowel wall thickening. Appendix: A normal appendix is not identified. There is no secondary evidence of acute appendicitis. Intraperitoneal space: No inflammatory changes are identified. There is no free fluid or fluid collection seen. There is no pneumoperitoneum. Vasculature: The aorta is normal in course and caliber. No significant atherosclerotic calcifications are present. Lymph nodes: No enlarged lymph nodes are identified. Urinary bladder: The bladder is unremarkable. Reproductive: The uterus is present. Bones/joints: No acute osseous abnormalities are seen. Soft tissues: Tiny periumbilical hernia containing only fat. The soft tissues are otherwise within normal limits. CT/CT abdomen pelvis w con* [id number] IMPRESSION: No acute intra-abdominal or pelvic process.
[2023-10-28 00:31] VITALS: BP 133/87; PULSE 78; RESP 14; O2SAT 99
[2023-10-28 00:50] LABS: Add Urine Microscopic? NO; Charge for UA Resulting for Rev
[2023-10-28 01:01] VITALS: BP 115/79; PULSE 84; RESP 16; O2SAT 100
[2023-10-28] MEDS: iohexol 350 mg/mL 500 mL Btl (per mL) IV (01:08)
[2023-10-28 01:19] LABS: Bilirubin Urine Neg (Negative); Blood Urine Neg (Negative); Glucose Urine UA Norm (Normal); Ketones Urine Negative (Negative); Leukocyte Esterase Urine Negative (Negative); Nitrate Urine Negative (Negative); Protein Urine Neg (Negative); Urine Appearance Clear (CLEAR); Urine Color Yellow (Yellow); Urobilinogen Urine Neg (Negative); pH Urine 6 (5-7)
[2023-10-28 01:31] VITALS: BP 139/83; PULSE 71; RESP 16; O2SAT 99
[2023-10-28 02:49] VITALS: BP 112/81; PULSE 88; RESP 16; O2SAT 97
[2023-10-28 02:51] VITALS: BP 112/81; PULSE 88; RESP 16; TEMP 36.8; O2SAT 97
== END 2023-10-28 02:52 | disposition home or self-care (01) ==
PROVIDERS: Emergency Provider Physician Assistant; PCP Family Medicine
DX: R10.32 Left lower quadrant pain (principal); Z79.899 Other long term (current) drug therapy; Z87.891 Personal history of nicotine dependence
CPT/HCPCS: 36415; 74177; 80053; 81003; 83690; 84703; 85025; 99285; Q9967

== ENCOUNTER → 2023-11-21 16:24 | Outpatient (BNVA) | payer MEDICAID, SELFPAY | PROVIDERS: PCP Family Medicine; Visit Provider Emergency Medicine | DX: R09.81 Nasal congestion (principal) | CPT/HCPCS: 87426 ==

== ENCOUNTER 2023-12-17 21:57 | Emergency (ER) | payer MEDICAID, SELFPAY ==
[2023-12-17 22:02] VITALS: BP 145/98; PULSE 76; RESP 18; TEMP 36.8; O2SAT 97; BMI 25.0
--- NOTE | 2023-12-17 22:09 | ED_ITS ---
HPI - General Adult General: Chief complaint: General Medical Stated complaint: Been on Period five days-Pain Time Seen by Provider: 12/17/23 22:08 History of Present Illness: 28-year-old female comes in today with c omplaints of being 5 days late for menstrual cycle. Patient also reports some pelvic discomfort. Patient believes that she may be or is getting ready to start her period. Patient has a recent loss of a child for demise at 31 weeks. Patient appears nontoxic. Patient appears no pain. Patient is on no control. 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 Related Data Home Medications Medication Instructions Recorded Confirmed ferrous sulfate 325 mg (65 mg 325 mg PO DAILY 12/25/21 11/21/23 iron) tablet (iron) Previous Rx's Medication Instructions Recorded pantoprazole 40 mg tablet,delayed 40 mg PO DAILY #30 tabs 08/23/23 release Allergies Allergy/AdvReac Type Severity Reaction Status Date / Time divalproex sodium Allergy Severe increased Verified 11/21/23 16:10 [From Depakote] anxiety metronidazole Allergy Severe Hives Verified 11/21/23 16:10 esomeprazole [From Nexium] Allergy Intermediate GI side Verified 11/21/23 16:10 effects Review of Systems General: Reports: 10 or more systems reviewed and unremarkable except in HPI and below PFSH ED PFSH: Medical History Cholestasis during Adrenal gland disorder No pertinent past medical history neghx: htn,dm,thyroid,dvt/pe PCP: Dr. Rees Surgical History Hx of cone biopsy of cervix (~11/27/21) MARTHA 2 with endocervical glandular involvement. All margins uninvolved and negative for dysplasia. Performed by Dr. Hsieh. Family History Mother Hypertension Diabetes Grandmother Thyroid disease maternal Colon cancer maternal great, late 80's Denies family history of Ovarian cancer Clotting disorder Heart disease Hyperlipidemia Anesthesia complication Bleeding disorder Uterine cancer Stroke Social History Smoking and tobacco/nicotine status: unknown if used tobacco/nicotine Physical Exam Const: COMMON NORMALS: alert HENMT: COMMON NORMALS: normocephalic HEAD & SCALP: normocephalic Neck/C-Spine: COMMON NORMALS: full ROM Resp: COMMON NORMALS: normal respiratory effort Cardio: COMMON NORMALS: regular rate RATE: regular rate Back/Pelvis: COMMON NORMALS: thoracic and lumbar spine normal to inspection Extremity: COMMON NORMALS: full ROM Neuro: SENSORIUM/ORIENTATION: Yes alert Skin: COMMON NORMALS: turgor normal GENERAL SKIN EXAM: turgor normal Course Vital Signs: Vital signs: Vital Signs Temperature 98.2 F 12/17/23 22:02 Pulse Rate 87 12/17/23 23:08 Respiratory Rate 16 12/17/23 23:08 Blood Pressure 124/76 12/17/23 23:08 Pulse Oximetry 97 12/17/23 23:08 Oxygen Delivery Me thod Room Air 12/17/23 22:02 [facility] - General Adult Medical Decision Making 28-year-old female comes in today with a 5-day late period for her menstrual cycle. On exam abdomen soft nontender. Skin is warm and dry. Vital signs are normal. Differential diagnosis late menstrual cycle, , ovarian cyst, urinary tract infection. Urinalysis and hCG were both negative. Patient appears in no acute distress. Patient appears in no pain. Recommended reevaluation of test in 1 week. Patient reported some cramping I believe this is probably due to her getting ready to initiate her menstrual cycle. Reassured her and told her to follow-up or return for worsening symptoms such as high fever, significant vaginal bleeding, or severe pain. Lab Data Laboratory Results HCG, Qual Negative (Negative) 12/17/23 22:16 Urine Color Yellow (Yellow) 12/17/23 22:16 Urine Appearance Clear (CLEAR) 12/17/23 22:16 Urine pH 7.5 (5-7) 12/17/23 22:16 Ur Specific [place] 1.008 (1.005-1.030) 12/17/23 22:16 Urine Protein Negative (Negative) 12/17/23 22:16 Urine Glucose (UA) Negative (Normal) 12/17/23 22:16 Urine Ketones Negative (Negative) 12/17/23 22:16 Urine Blood Negative (Negative) 12/17/23 22:16 Urine Nitrate Negative (Negative) 09/05/24 22:16 Urine Bilirubin Negative (Negative) 12/17/23 22:16 Urine Urobilinogen 1.0 mg/dL (Negative) 12/17/23 22:16 Ur Leukocyte Esterase Negative (Negative) 12/17/23 22:16 Amorphous Sediment Not Reportable 12/17/23 22:16 No radiology studies performed this visit Discharge Plan Discharge Patient Disposition: Home Clinical Impression: Late menses Condition: Stable Prescriptions: No Action ferrous sulfate [iron] 325 mg (65 mg iron) Tablet 325 mg PO DAILY pantoprazole 40 mg tablet,delayed release (DR/EC) 40 mg PO DAILY Qty: 30 0RF Discharge Orders: Discharge ED (Routine); Ordered 12/17/23 Ordered By: Ashok King Referrals: Lionel Rees MD [Primary Care Provider] - Discharge Diet: Usual diet Discharge Activity: Increase activity as tolerated Patient Instructions: Menstruation Activity Restrictions/Additional Instructions: Drink plenty water and fluids. Use acetaminophen or ibuprofen for pain and discomfort. Follow-up with primary care for further instructions. At this time I would recommend that you wait 1 to 2 weeks and recheck your test if you have not started your menstrual cycle. Thank you for choosing [facility] for your healthcare needs today. Please realize that you were seen in the emergency department and that we are providing you with an emergency medical screening exam and this may not be a complete and all exclusive of all testing and/or medical workup we may need to determine your element or severity of your illness. It is very important that you follow-up as instructed with your primary care provider or specialist for the additional evaluation and to discuss your medical treatment plan. You may return to the emergency department should you have concerns or if your condition changes or worsens in any way. Coding Level of Care Code ED Merchandising Execution Associate for Marcella Chavez
[2023-12-17 22:19] VITALS: BP 141/87; PULSE 90; RESP 16; O2SAT 100
[2023-12-17 22:25] LABS: Charge for UA Resulting for Rev
[2023-12-17 22:27] LABS: Bilirubin Urine Negative (Negative); Blood Urine Negative (Negative); Glucose Urine UA Negative (Normal); Ketones Urine Negative (Negative); Leukocyte Esterase Urine Negative (Negative); Nitrate Urine Negative (Negative); Protein Urine Negative (Negative); Specific Gravity, Urine 1.008 (1.005-1.030); Urine Appearance Clear (CLEAR); Urine Color Yellow (Yellow); pH Urine 7.5 (5-7)
[2023-12-17 22:34] LABS: HCG Qualitative Urine. Negative (Negative)
[2023-12-17 23:08] VITALS: BP 124/76; PULSE 87; RESP 16; O2SAT 97
== END 2023-12-17 23:12 | disposition home or self-care (01) ==
PROVIDERS: Emergency Medicine; Emergency Provider Nurse Practitioner Family; PCP Family Medicine
DX: N92.5 Other specified irregular menstruation (principal)
CPT/HCPCS: 81003; 81015; 81025; 99283

== ENCOUNTER 2023-12-31 11:50 | Outpatient (CLI) | payer MEDICAID, SELFPAY ==
--- NOTE | 2023-12-31 11:52 | US_ITS ---
WS: [id number] ULTRASOUND BREAST LEFT TECHNIQUE: Ultrasound left breast focused area of concern. CLINICAL INFORMATION: MASTODYNIA COMPARISON: None. FINDINGS: Ultrasound LEFT breast patient directed 12 to 6 o'clock position area of pain. In addition, ultrasoun d LEFT axilla area of pain. Normal underlying parenchymal tissue. No cystic or solid lesions in the area of concern 12 to 6 o'crescencio ck position. A few normal-appearing lymph nodes in the LEFT axilla. No suspicious findings to target for biopsy. US/US breast LT limited* [id number] IMPRESSION: BI-RADS 2 benign Recommend annual screening mammography age 40
== END 2023-12-31 11:51 | disposition home or self-care (01) ==
LOC: RAD 11:51
PROVIDERS: PCP Family Medicine; Visit Provider Family Medicine
DX: N64.4 Mastodynia (principal)
CPT/HCPCS: 76642

== ENCOUNTER 2024-04-09 16:34 | Emergency (ER) | payer MEDICAID, SELFPAY ==
[2024-04-09] VITALS (8 sets, daily range): BP systolic 90–131; BP diastolic 49–87; PULSE 82–91; RESP 16–18; TEMP 36.8; O2SAT 93–99; BMI 25.2
--- NOTE | 2024-04-09 16:36 | XRR_ITS ---
PROCEDURE INFORMATION: Exam: XR Chest Exam date and time: 04/09/2024 5:08 PM Age: 28 years old Clinical indication: Chest pressure; Patient HX: Chest pain; Cough; Pain under lt breast; Additional info: Cp TECHNIQUE: Imaging protocol: Radiologic exam of the chest. Views: 1 view. COMPARISON: CT angio chest PE protcl [id number] 05/15/2021 4:54 PM FINDINGS: Lungs: Unremarkable. No consolidation. Pleural spaces: Unremarkable. No pleural effusion. No pneumothorax. Heart/Mediastinum: Unremarkable. No cardiomegaly. Bones/joints: Unremarkable. XR/XR chest 1V portable [id number] IMPRESSION: No acute findings.
--- NOTE | 2024-04-09 16:41 | ECG_ITS ---
[facility] Test Date: 2024-04-09 Pat Name: Gloria Gil Department: Room: Gender: Female Bridge Repairer: : 1995 Requested By: Leigh Deras Order Number: [id number] Kiki MD: René Colbert M.D. Measurements Intervals [place] Rate: 85 P: 78 MA: 141 QRS: 80 QRSD: 92 T: 15 QT: 333 QTc: 396 Interpretive Statements SINUS RHYTHM NONSPECIFIC ST & T-WAVE ABNORMALITY No previous ECG available for comparison Electronically Signed On 04-10-2024 20:06:52 POLICE CRIME SCENE TECHNICIAN by René Colbert M.D. [email or web address]
--- NOTE | 2024-04-09 17:05 | ED_ITS ---
Documented by User: Audie Castro DO 04/11/24 14:42 HPI - Chest Pain 2 General: Chief Complaint: Chest Pain Stated Complaint: chest pain Time Seen by Provider: 04/09/24 17:05 History of Present Illness: 28-year-old female who presents emergenc y room with cough cold flulike symptoms for the last 4 days. Congested fatigue myalgias nonproductive cough no vomiting no diarrhea other family members sick with similar symptoms Associated symptoms: Deny abdominal pain, dyspnea or fever(s) Related Data Home Medications Medication Instructions Recorded Confirmed ferrous sulfate 325 mg (65 mg 325 mg PO DAILY 12/25/21 04/08/24 iron) tablet (iron) Previous Rx's Medication Instructions Recorded pantoprazole 40 mg tablet,delayed 40 mg PO DAILY #30 tabs 08/23/23 release Allergies Allergy/AdvReac Type Severity Reaction Status Date / Time divalproex sodium Allergy Severe increased Verified 04/09/24 16:44 [From Depakote] anxiety metronidazole Allergy Severe Hives Verified 04/09/24 16:44 esomeprazole [From Nexium] Allergy Intermediate GI side Verified 04/09/24 16:44 effects Review of Systems 2 Const: Denies: fever(s) or chills Card: Denies: chest pain Resp: Denies: dyspnea GI: Denies: abdominal pain : Denies: dysuria, urinary frequency or urinary urgency Musc: Denies: neck pain or back pain Skin/Breast: Denies: rash PFSH ED 2 PFSH: Medical History Cholestasis during Adrenal gland disorder No pertinent past medical history neghx: htn,dm,thyroid,dvt/pe PCP: Dr. Rees Surgical History Hx of cone biopsy of cervix (~11/27/21) MARTHA 2 with endocervical glandular involvement. All margins uninvolved and negative for dysplasia. Performed by Dr. Hsieh. Family History Mother Hypertension Diabetes Grandmother Thyroid disease maternal Colon cancer maternal great, late 80's Denies family history of Ovarian cancer Clotting disorder Heart disease Hyperlipidemia Anesthesia complication Bleeding disorder Uterine cancer Stroke Social History Smoking and tobacco/nicotine status: former use of tobacco/nicotine Female Reproductive History: Date of last menstrual period: 02/14/24 Physical Exam 2 Const: COMMON NORMALS: no acute distress GENERAL APPEARANCE: cooperative and comfortable ORIENTATION/CONSCIOUSNESS: Yes awake, Yes oriented to person, Yes oriented to place and Yes oriented to time HENMT: COMMON NORMALS: normocephalic, atraumatic and hearing grossly normal bilaterally HEAD & SCALP: normocephalic and atraumatic Resp: COMMON NORMALS: normal respiratory effort, No retractions, No use of accessory muscles and clear to auscultation bilaterally AUSCULTATION: clear to auscultation bilaterally Cardio: COMMON NORMALS: regular rate, regular rhythm and No murmurs present (Cardio) RATE: regular rate RHYTHM: regular rhythm GI: COMMON NORMALS: Soft to palpation and No hepatosplenomegaly present A USCULTATION: Yes normoactive bowel sounds PALPATION: Yes Soft to palpation, No Tenderness to palpation present (GI), No Guarding due to palpation present (GI) and Yes No hepatosplenomegaly present Extremity: COMMON NORMALS: normal to inspection, capillary refill normal, no clubbing, cyanosis or edema, no calf tenderness and no pedal edema Neuro: SENSORIUM/ORIENTATION: Yes oriented to person, Yes oriented to place and Yes oriented to time Skin: COMMON NORMALS: no rashes or lesions noted GENERAL SKIN EXAM: no rashes or lesions noted Course 2 Vital Signs: Vital signs: Vital Signs Temperature 98.3 F 04/09/24 16:44 Pulse Rate 89 04/09/24 20:33 Respiratory Rate 18 04/09/24 20:33 Blood Pressure 116/86 04/09/24 20:33 Pulse Oximetry 98 04/09/24 20:33 Oxygen Delivery Me thod Room Air 04/09/24 18:51 MDM - Chest Pain Medical Decision Making Care signed out to Dr. Lira at change of shift. See final notes for diagnosis and disposition. Patient care transitioned over myself at shift change, lab work was reviewed, patient is negative for RSV, flu, influenza, COVID, chest x-ray was negative, blood work is unremarkable. Patient be discharged home with a diagnosis of upper respiratory infection. Lab Data 04/09/24 17:12 04/09/24 17:12 Radiology Impressions Chest X-Ray 04/09/24 16:36 IMPRESSION: No acute findings. Laboratory Results WBC 4.43 10^3/uL (3.29-11.43) 04/09/24 17:12 RBC 3.96 10^6/uL (3.85-5.65) 04/09/24 17:12 Hgb 12.70 g/dL (11.27-16.99) 04/09/24 17:12 Hct 37.4 % (36-47) 04/09/24 17:12 MCV 94.4 fl (85-98) 04/09/24 17:12 MCH 32.1 pg (27-33) 04/09/24 17:12 MCHC 34.0 g/dL (30-55) 04/09/24 17:12 RDW 11.9 % (12.1-15.1) L 04/09/24 17:12 Plt Count 255 10^3/cmm (157-399) 04/09/24 17:12 MPV 10.0 fL (7.4-10.4) 04/09/24 17:12 Neut % (Auto) 54.7 % 04/09/24 17:12 Lymph % (Auto) 35.0 % 04/09/24 17:12 Knox % (Auto) 7.4 % 04/09/24 17:12 Eos % (Auto) 2.0 % 04/09/24 17:12 Baso % (Auto) 0.7 % 04/09/24 17:12 Neut # (Auto) 2.42 10^3/uL (1.8-7.7) 04/09/24 17:12 Lymph # (Auto) 1.6 10^3/uL (0.8-4.8) 04/09/24 17:12 Knox # (Auto) 0.3 10^3/uL (0.2-0.9) 04/09/24 17:12 Eos # (Auto) 0.1 10^3/uL (0.0-0.8) 04/09/24 17:12 Baso # (Auto) 0.0 10^3/uL (0.0-0.1) 04/09/24 17:12 Nucleated RBC % (auto) 0 % 04/09/24 17:12 Nucleated RBCs # 0.0 /100WBC 04/09/24 17:12 PT 12.90 SECONDS (12.1-14.9) 04/09/24 17:12 INR 0.94 (0.8-1.2) 04/09/24 17:12 Sodium 140 mmol/L (136-145) 04/09/24 17:12 Potassium 3.8 mmol/L (3.5-5.1) 04/09/24 17:12 Chloride 103 mmol/L (98-107) 04/09/24 17:12 Carbon Dioxide 27 mmol/L (22-29) 04/09/24 17:12 Anion Gap 13.8 (5-19) 04/09/24 17:12 BUN 9 mg/dL (6-20) 04/09/24 17:12 Creatinine 0.6 mg/dL (0.5-0.9) 04/09/24 17:12 GFR Calculation 117.4 mL/min (90-130) 04/09/24 17:12 Glucose 101 mg/dL (65-115) 04/09/24 17:12 Calculated Osmolality 289 mOsm/kg (285-295) 04/09/24 17:12 Calcium 9.6 mg/dL (8.5-10.5) 04/09/24 17:12 Total Bilirubin 0.4 mg/dL (0.15-1.2) 04/09/24 17:12 AST 26 U/L (0-32) 04/09/24 17:12 ALT 35 U/L (0-33) H 04/09/24 17:12 Alkaline Phosphatase 70 U/L (35-105) 04/09/24 17:12 Troponin T Baseline < 6 ng/L (0-10) 04/09/24 17:12 Troponin T 120 Minute 6.00 ng/L (0-10) 04/09/24 19:15 Delta Troponin T 0.50965 ABS# (0-10) 04/09/24 19:15 Total Protein 7.7 g/dL (6.6-8.7) 04/09/24 17:12 Albumin 5.0 g/dL (3.5-5.2) 04/09/24 17:12 Globulin 2.7 g/dL (1.3-4.6) 04/09/24 17:12 Lipase 36 U/L (13-60) 04/09/24 17:12 HCG, Qual Negative (Negative) 04/09/24 17:12 Coronavirus (PCR) Negative (Negative) 04/09/24 16:50 Influenza A (PCR) Negative (Negative) 04/09/24 16:50 Influenza Type B (PCR) Negative (Negative) 04/09/24 16:50 RSV (PCR) Negative (Negative) 04/09/24 16:50 Discharge Plan Discharge Patient Disposition: Home Clinical Impression: Viral URI, Atypical chest pain Condition: Stable Prescriptions: No Action ferrous sulfate [iron] 325 mg (65 mg iron) Tablet 325 mg PO DAILY pantoprazole 40 mg tablet,delayed release (DR/EC) 40 mg PO DAILY Qty: 30 0RF Discharge Orders: Discharge ED (Routine); Ordered 04/09/24 Ordered By: Ezequiel Lira Referrals: Lionel Rees MD [Primary Care Provider] - 1 week Patient Instructions: Chest Pain (ED), Upper Respiratory Infection - Adult Activity Restrictions/Additional Instructions: Thank you for choosing [facility] for your healthcare needs today. Please realize that you were seen in the emergency department and that we are providing you with an emergency medical screening exam and this may not be a complete and all exclusive of all testing and/or medical workup we may need to determine your element or severity of your illness. It is very important that you follow-up as instructed with your primary care provider or specialist for the additional evaluation and to discuss your medical treatment plan. You may return to the emergency department should you have concerns or if your condition changes or worsens in any way. Coding Level of Care Code ED Advisory Software Engineer for [employer] Documented by User: Ezequiel Lira DO 04/09/24 23:32 HPI - Chest Pain 2 General: Chief Complaint: Chest Pain Stated Complaint: chest pain Time Seen by Provider: 04/09/24 17:05 History of Present Illness: Patient presents to the ER with cough cold congestion fever, this been going on for about 4 days. Patient also has some left sided chest wall pain is worse when she bends and twist. Patient son is sick with same thing. Related Data Home Medications Medication Instructions Recorded Confirmed ferrous sulfate 325 mg (65 mg 325 mg PO DAILY 12/25/21 04/08/24 iron) tablet (iron) Previous Rx's Medication Instructions Recorded pantoprazole 40 mg tablet,delayed 40 mg PO DAILY #30 tabs 08/23/23 release Allergies Allergy/AdvReac Type Severity Reaction Status Date / Time divalproex sodium Allergy Severe increased Verified 04/09/24 16:44 [From Depakote] anxiety metronidazole Allergy Severe Hives Verified 04/09/24 16:44 esomeprazole [From Nexium] Allergy Intermediate GI side Verified 04/09/24 16:44 effects Review of Systems 2 General: Reports: 10 or more systems reviewed and unremarkable except in HPI and below PFSH ED 2 PFSH: Medical History Cholestasis during Adrenal gland disorder No pertinent past medical history neghx: htn,dm,thyroid,dvt/pe PCP: Dr. Rees Surgical History Hx of cone biopsy of cervix (~11/27/21) MARTHA 2 with endocervical glandular involvement. All margins uninvolved and negative for dysplasia. Performed by Dr. Hsieh. Family History Mother Hypertension Diabetes Grandmother Thyroid disease maternal Colon cancer maternal great, late 80's Denies family history of Ovarian cancer Clotting disorder Heart disease Hyperlipidemia Anesthesia complication Bleeding disorder Uterine cancer Stroke Social History Smoking and tobacco/nicotine status: former use of tobacco/nicotine Course 2 Vital Signs: Vital signs: Vital Signs Temperature 98.3 F 04/09/24 16:44 Pulse Rate 89 04/09/24 20:33 Respiratory Rate 18 04/09/24 20:33 Blood Pressure 116/86 04/09/24 20:33 Pulse Oximetry 98 04/09/24 20:33 Oxygen Delivery Me thod Room Air 04/09/24 18:51 MDM - Chest Pain Medical Decision Making Patient care transitioned over myself at shift change, lab work was reviewed, patient is negative for RSV, flu, influenza, COVID, chest x-ray was negative, blood work is unremarkable. Patient be discharged home with a diagnosis of upper respiratory infection. Lab Data 04/09/24 17:12 04/09/24 17:12 Radiology Impressions Chest X-Ray 04/09/24 16:36 IMPRESSION: No acute findings. Laboratory Results WBC 4.43 10^3/uL (3.29-11.43) 04/09/24 17:12 RBC 3.96 10^6/uL (3.85-5.65) 04/09/24 17:12 Hgb 12.70 g/dL (11.27-16.99) 04/09/24 17:12 Hct 37.4 % (36-47) 04/09/24 17:12 MCV 94.4 fl (85-98) 04/09/24 17:12 MCH 32.1 pg (27-33) 04/09/24 17:12 MCHC 34.0 g/dL (30-55) 04/09/24 17:12 RDW 11.9 % (12.1-15.1) L 04/09/24 17:12 Plt Count 255 10^3/cmm (157-399) 04/09/24 17:12 MPV 10.0 fL (7.4-10.4) 04/09/24 17:12 Neut % (Auto) 54.7 % 04/09/24 17:12 Lymph % (Auto) 35.0 % 04/09/24 17:12 [place] % (Auto) 7.4 % 04/09/24 17:12 Eos % (Auto) 2.0 % 04/09/24 17:12 Baso % (Auto) 0.7 % 04/09/24 17:12 Neut # (Auto) 2.42 10^3/uL (1.8-7.7) 04/09/24 17:12 Lymph # (Auto) 1.6 10^3/uL (0.8-4.8) 04/09/24 17:12 [place] # (Auto) 0.3 10^3/uL (0.2-0.9) 04/09/24 17:12 Eos # (Auto) 0.1 10^3/uL (0.0-0.8) 04/09/24 17:12 Baso # (Auto) 0.0 10^3/uL (0.0-0.1) 04/09/24 17:12 Nucleated RBC % (auto) 0 % 04/09/24 17:12 Nucleated RBCs # 0.0 /100WBC 04/09/24 17:12 PT 12.90 SECONDS (12.1-14.9) 04/09/24 17:12 INR 0.94 (0.8-1.2) 04/09/24 17:12 Sodium 140 mmol/L (136-145) 04/09/24 17:12 Potassium 3.8 mmol/L (3.5-5.1) 04/09/24 17:12 Chloride 103 mmol/L (98-107) 04/09/24 17:12 Carbon Dioxide 27 mmol/L (22-29) 04/09/24 17:12 Anion Gap 13.8 (5-19) 04/09/24 17:12 BUN 9 mg/dL (6-20) 04/09/24 17:12 Creatinine 0.6 mg/dL (0.5-0.9) 04/09/24 17:12 GFR Calculation 117.4 mL/min (90-130) 04/09/24 17:12 Glucose 101 mg/dL (65-115) 04/09/24 17:12 Calculated Osmolality 289 mOsm/kg (285-295) 04/09/24 17:12 Calcium 9.6 mg/dL (8.5-10.5) 04/09/24 17:12 Total Bilirubin 0.4 mg/dL (0.15-1.2) 04/09/24 17:12 AST 26 U/L (0-32) 04/09/24 17:12 ALT 35 U/L (0-33) H 04/09/24 17:12 Alkaline Phosphatase 70 U/L (35-105) 04/09/24 17:12 Troponin T Baseline < 6 ng/L (0-10) 04/09/24 17:12 Troponin T 120 Minute 6.00 ng/L (0-10) 04/09/24 19:15 Delta Troponin T 0.13125 ABS# (0-10) 04/09/24 19:15 Total Protein 7.7 g/dL (6.6-8.7) 04/09/24 17:12 Albumin 5.0 g/dL (3.5-5.2) 04/09/24 17:12 Globulin 2.7 g/dL (1.3-4.6) 04/09/24 17:12 Lipase 36 U/L (13-60) 04/09/24 17:12 HCG, Qual Negative (Negative) 04/09/24 17:12 Coronavirus (PCR) Negative (Negative) 04/09/24 16:50 Influenza A (PCR) Negative (Negative) 04/09/24 16:50 Influenza Type B (PCR) Negative (Negative) 04/09/24 16:50 RSV (PCR) Negative (Negative) 04/09/24 16:50 All radiology interpretation(s) finalized by discharge Discharge Plan Discharge Patient Disposition: Home Clinical Impression: Viral URI, Atypical chest pain Condition: Stable Prescriptions: No Action ferrous sulfate [iron] 325 mg (65 mg iron) Tablet 325 mg PO DAILY pantoprazole 40 mg tablet,delayed release (DR/EC) 40 mg PO DAILY Qty: 30 0RF Discharge Orders: Discharge ED (Routine); Ordered 04/09/24 Ordered By: Ezequiel Lira Referrals: Lionel Rees MD [Primary Care Provider] - 1 week Patient Instructions: Chest Pain (ED), Upper Respiratory Infection - Adult Activity Restrictions/Additional Instructions: Thank you for choosing [facility] for your healthcare needs today. Please realize that you were seen in the emergency department and that we are providing you with an emergency medical screening exam and this may not be a complete and all exclusive of all testing and/or medical workup we may need to determine your element or severity of your illness. It is very important that you follow-up as instructed with your primary care provider or specialist for the additional evaluation and to discuss your medical treatment plan. You may return to the emergency department should you have concerns or if your condition changes or worsens in any way. Coding Level of Care Code ED Advisory Software Engineer for Marcella Chavez
[2024-04-09 17:21] LABS: Basophils % 0.7 %; Eosinophils # 0.1 10^3/uL (0.0-0.8); Hematocrit 37.4 % (36-47); Lymphocytes # 1.6 10^3/uL (0.8-4.8); Mean Corpuscular Hemoglobin 32.1 pg (27-33); Mean Corpuscular Volume 94.4 fl (85-98); Monocytes # 0.3 10^3/uL (0.2-0.9); Monocytes % 7.4 %; Neutrophils # 2.42 10^3/uL (1.8-7.7); Neutrophils % 54.7 %; Nucleated Red Blood Cells % 0 %; Platelet Count 255 10^3/cmm (157-399); Red Blood Count 3.96 10^6/uL (3.85-5.65); Red Cell Distribution Width 11.9 % (12.1-15.1); White Blood Count 4.43 10^3/uL (3.29-11.43)
[2024-04-09 17:38] LABS: INR 0.94 (0.8-1.2)
[2024-04-09 17:41] LABS: HCG, Serum Qual Negative (Negative); Troponin(5th) Baseline < 6 ng/L (0-10)
[2024-04-09 17:44] LABS: Alanine Aminotransferase 35 U/L (0-33); Alkaline Phosphatase 70 U/L (35-105); Anion Gap 13.8 (5-19); Aspartate Amino Transferase 26 U/L (0-32); Blood Urea Nitrogen 9 mg/dL (6-20); Calcium 9.6 mg/dL (8.5-10.5); Carbon Dioxide 27 mmol/L (22-29); Chloride 103 mmol/L (98-107); Creatinine Clr Calc Pharmacy 128.7599; Globulin 2.7 g/dL (1.3-4.6); Glomerular Filtration Rate 117.4 mL/min (90-130); Glucose 101 mg/dL (65-115); Lipase 36 U/L (13-60); Osmolality Calculated 289 mOsm/kg (285-295); Potassium 3.8 mmol/L (3.5-5.1); Sodium 140 mmol/L (136-145); Total Bilirubin 0.4 mg/dL (0.15-1.2); Total Protein 7.7 g/dL (6.6-8.7)
[2024-04-09 18:08] LABS: Covid PCR NEGATIVE (Negative); Influenza A NEGATIVE (Negative); Influenza B NEGATIVE (Negative); Respiratory Syncytial Virus Ce NEGATIVE (Negative)
[2024-04-09 19:51] LABS: Troponin 5 2HR Delta 0.00001 ABS# (0-10)
== END 2024-04-09 20:39 | disposition home or self-care (01) ==
PROVIDERS: Emergency Medicine; Family Medicine; Emergency Provider Emergency Medicine; PCP Family Medicine
DX: J06.9 Acute upper respiratory infection, unspecified (principal); R07.89 Other chest pain; Z11.52 Encounter for screening for COVID-19; Z87.891 Personal history of nicotine dependence
CPT/HCPCS: 36415; 71045; 80053; 83690; 84484; 84703; 85025; 85610; 87637; 93005; 99285

== ENCOUNTER 2024-06-01 20:25 | Emergency (ER) | payer MEDICAID, SELFPAY ==
[2024-06-01 20:26] VITALS: BP 107/84; PULSE 94; RESP 16; TEMP 36.4; O2SAT 99; BMI 25.4
--- NOTE | 2024-06-01 20:46 | XRR_ITS ---
PROCEDURE INFORMATION: Exam: XR Left Ribs Exam date and time: 06/01/2024 8:58 PM Age: 29 years old Clinical indication: Mass, lump, or swelling; Additional info: Pain TECHNIQUE: Imaging protocol: Radiologic exam of the left ribs. Views: 2 views. COMPARISON: CR (CHEST, ) 04/09/2024 5:08 PM FINDINGS: Bones/joints: Normal. Soft tissues: Normal. XR/XR ribs LT 2V* [id number] IMPRESSION: No acute findings. Consider further evaluation with a CT scan to evaluate provided clinical indication.
--- NOTE | 2024-06-01 20:54 | ED_ITS ---
HPI - Nausea/Vomiting/Diarrhea 2 General: Chief complaint: Nausea/Vomiting/Diarrhea Stated complaint: nausea Time Seen by Provider: 06/01/24 20:32 Source: patient Mode of arrival: EMS Limitations: no limitations History of Present Illness: Patient is a 29-year-old female who presents to the emergency department complaining of nausea onset tonight. States that over the past few days she has been dealing with upper respiratory infection, also complaining of lump to left rib area. States that she was having some abdominal pain earlier when she got in the shower, and when she got out she fell and states that her told her she seemed out of it. She then notes she got up and sat on the toilet and had largest bowel movement of my life and that this relieved the abdominal pain. Also states that since arriving her nausea has gotten better, she just wants general evaluation. She denies medication for nausea or pain at this time. She denies being , states there is a possibility that she is. She is not having any vaginal bleeding, chest pain, shortness of breath, or other symptoms at this time. MD elicited complaint: nausea and abdominal pain Onset (ago): hour(s) Associated nausea: Yes Associated abdominal pain: Yes Location of pain: Diffuse Pain consistency: now resolved Quality: cramping Relieving factors: bowel movement Associated symtoms: Reports nausea; Denies chest pain, diaphoresis, dizziness, dysuria, headache(s) or palpitations Related Data Home Medications ?Medication ?Instructions ?Recorded ?Confirmed ferrous sulfate 325 mg (65 mg 325 mg PO DAILY 12/25/21 04/30/24 iron) tablet (iron) Previous Rx's ?Medication ?Instructions ?Recorded pantoprazole 40 mg tablet,delayed 40 mg PO DAILY #30 t abs 08/23/23 release amoxicillin 875 mg-potassium 1 tab PO BID 10 days #20 tabs 04/30/24 clavulanate 125 mg tablet cetirizine 10 mg tablet (Zyrtec) 10 mg PO DAILY PRN al lergy 04/30/24 symptoms #30 tabs ondansetron HCl 4 mg tablet 4 mg PO Q8H #30 tabs 06/01 Allergies Allergy/AdvReac Type Severity Reaction Status Date / Time divalproex sodium (From Allergy Severe increased Verified 06/01/24 20:31 Depakote) anxiety metronidazole Allergy Severe Hives Verified 06/01/24 20:31 esomeprazole (From Nexium) Allergy Intermediate GI side Verified 06/01/24 20:31 effects Review of Systems 2 General: Reports: 10 or more systems reviewed and unremarkable except in HPI and below Const: Denies: fever(s), chills, change in appetite, change in weight or diaphoresis ENMT: Denies: throat pain or hoarseness Card: Denies: chest pain, palpitations or lightheadedness Resp: Denies: dyspnea, productive cough or wheezing GI: Reports: abdominal pain and nausea; Denies: vomiting or diarrhea : Denies: flank pain, difficulty voiding, dysuria, urinary frequency or urinary urgency Musc: Reports: other (Left rib pain/lump); Denies: neck pain or back pain Skin/Breast: Denies: rash or new lesions Neuro: Denies: headache(s) or dizziness PFSH ED 2 PFSH: Medical History Cholestasis during Adrenal gland disorder No pertinent past medical history neghx: htn,dm,thyroid,dvt/pe PCP: Dr. Rees Surgical History Hx of cone biopsy of cervix (~11/27/21) MARTHA 2 with endocervical glandular involvement. All margins uninvolved and negative for dysplasia. Performed by Dr. Hsieh. Family History Mother Hypertension Diabetes Grandmother Thyroid disease maternal Colon cancer maternal great, late 80's Denies family history of Ovarian cancer Clotting disorder Heart disease Hyperlipidemia Anesthesia complication Bleeding disorder Uterine cancer Stroke Social History Smoking and tobacco/nicotine status: never used tobacco/nicotine Female Reproductive History: Date of last menstrual period: 05/09/24 Physical Exam 2 Const: COMMON NORMALS: no acute distress, average body habitus, patient oriented x3, no limitations, healthy appearing, alert and well nourished G ENERAL APPEARANCE: cooperative and comfortable ORIENTATION/CONSCIOUSNESS: Yes awake HENMT: COMMON NORMALS: normocephalic, atraumatic, hearing grossly normal bilaterally, external ears normal, Normal external nose present, Normal nasal mucous membranes and turbinates present and moist oral mucous membranes HEAD & SCALP: normocephalic and atraumatic NOSE: Normal external nose present and Normal nasal mucous membranes and turbinates present EXTERNAL EAR: Yes external ears normal Eye: COMMON NORMALS: Equal, round and reactive pupils present, EOMs intact bilaterally and conjunctivae normal CONJUNCTIVA: Yes conjunctivae normal P UPIL: Yes Equal, round and reactive pupils present Neck/C-Spine: COMMON NORMALS: full ROM, supple, no meningeal signs and no JVD Chest: OTHER: Reproducible tenderness palpation over the anterior chest wall, palpable muscle spasm Resp: COMMON NORMALS: normal respiratory effort, No retractions, No use of accessory muscles and clear to auscultation bilaterally AUSCULTATION: clear to auscultation bilaterally, no crackles, no rales, no rhonchi and no wheezes Cardio: COMMON NORMALS: no JVD, regular rate, regular rhythm, S1 normal heart sound present, S2 normal heart sound present, No gallops present (Cardio), No clicks present (Cardio), No murmurs present (Cardio), No rub (Cardio) and Peripheral pulses 2+ throughout RATE: regular rate RHYTHM: regular rhythm HEART SOUNDS: S1 normal heart sound present and S2 normal heart sound present PERIPHERAL PULSES: Peripheral pulses 2+ throughout GI: COMMON NORMALS: Normal to inspection, nondistended, normoactive bowel sounds present, Soft to palpation, non-tender, No hepatosplenomegaly present and no masses AUSCULTATION: Yes normoactive bowel sounds PALPATION: Yes Soft to palpation, No Guarding due to palpation present (GI), No Rigid due to palpation and Yes No hepatosplenomegaly present RECTAL EXAM: deferred Extremity: COMMON NORMALS: normal to inspection and full ROM Neuro: COMMON NORMALS: patient oriented x3, moves all extremities, no focal motor deficits and no sensory deficits noted SENSORIUM/ORIENTATION: Yes alert MENINGEAL SIGNS: Yes no meningeal signs Skin: COMMON NORMALS: no rashes or lesions noted GENERAL SKIN EXAM: no rashes or lesions noted Course 2 Vital Signs: Vital signs: Vital Signs Temperature 97.5 F L 06/01/24 20:26 Pulse Rate 92 06/01/24 20:55 Respiratory Rate 16 06/01/24 20:55 Blood Pressure 107/84 06/01/24 20:26 Pulse Oximetry 98 06/01/24 20:55 Oxygen Delivery Me thod Room Air 06/01/24 20:26 MDM - Nausea/Vomiting/Diarrhea Medical Decision Making Patient presented by ambulance for nausea that she had stated resolved essentially when she got here. Also was having pain earlier states this resolved after bowel movement where she had severe diarrhea. Notes multiple kids in her house have had stomach bug recently. Heart rate has been somewhat elevated throughout ED stay, I suspect element of dehydration. Check some labs, all of which ultimately were unremarkable. Urinalysis was contaminated will not treat for any infection. Offered IV fluids, she denied this stating she would rather rehydrate at home. Also multiple times offered nausea medications, she stated no every time. States that she is ready to go home at this time, but does want a respiratory panel to make sure that she also has a stomach bug. Told her we would obtain this and call her with results. Ultimately referred her back to PCP in the next day or so for reevaluation and told her to return with any new or concerning, she verbalized understanding. Lab Data 06/01/24 21:07 06/01/24 21:07 Radiology Impressions Ribs X-Ray 06/01/24 20:46 IMPRESSION: No acute findings. Consider further evaluation with a CT scan to evaluate provided clinical indication. Laboratory Results WBC 11.55 10^3/uL (3.29-11.43) H 06/01/24 21:07 RBC 4.65 10^6/uL (3.85-5.65) 06/01/24 21:07 Hgb 14.40 g/dL (11.27-16.99) 06/01/24 21:07 Hct 43.7 % (36-47) 06/01/24 21:07 MCV 94.0 fl (85-98) 06/01/24 21:07 MCH 31.0 pg (27-33) 06/01/24 21:07 MCHC 33.0 g/dL (30-55) 06/01/24 21:07 RDW 11.9 % (12.1-15.1) L 06/01/24 21:07 Plt Count 271 10^3/cmm (157-399) 06/01/24 21:07 MPV 9.7 fL (7.4-10.4) 06/01/24 21:07 Neut % (Auto) 85.3 % 06/01/24 21:07 Lymph % (Auto) 8.7 % 06/01/24 21:07 Kimble % (Auto) 4.4 % 06/01/24 21:07 Eos % (Auto) 1.0 % 06/01/24 21:07 Baso % (Auto) 0.3 % 06/01/24 21:07 Neut # (Auto) 9.87 10^3/uL (1.8-7.7) H 06/01/24 21:07 Lymph # (Auto) 1.0 10^3/uL (0.8-4.8) 06/01/24 21:07 Kimble # (Auto) 0.5 10^3/uL (0.2-0.9) 06/01/24 21:07 Eos # (Auto) 0.1 10^3/uL (0.0-0.8) 06/01/24 21:07 Baso # (Auto) 0.0 10^3/uL (0.0-0.1) 06/01/24 21:07 Nucleated RBC % (auto) 0 % 06/01/24 21:07 Nucleated RBCs # 0.0 /100WBC 06/01/24 21:07 Sodium 140 mmol/L (136-145) 06/01/24 21:07 Potassium 3.8 mmol/L (3.5-5.1) 06/01/24 21:07 Chloride 100 mmol/L (98-107) 06/01/24 21:07 Carbon Dioxide 26 mmol/L (22-29) 06/01/24 21:07 Anion Gap 17.8 (5-19) 06/01/24 21:07 BUN 9 mg/dL (6-20) 06/01/24 21:07 Creatinine 0.6 mg/dL (0.5-0.9) 06/01/24 21:07 GFR Calculation 116.6 mL/min (90-130) 06/01/24 21:07 Glucose 118 mg/dL (65-115) H 06/01/24 21:07 Calculated Osmolality 290 mOsm/kg (285-295) 06/01/24 21:07 Calcium 9.7 mg/dL (8.5-10.5) 06/01/24 21:07 Total Bilirubin 0.5 mg/dL (0.15-1.2) 06/01/24 21:07 AST 15 U/L (0-32) 06/01/24 21:07 ALT 20 U/L (0-33) 06/01/24 21:07 Alkaline Phosphatase 82 U/L (35-105) 06/01/24 21:07 Total Protein 8.1 g/dL (6.6-8.7) 06/01/24 21:07 Albumin 4.9 g/dL (3.5-5.2) 06/01/24 21:07 Globulin 3.2 g/dL (1.3-4.6) 06/01/24 21:07 HCG, Qual Negative (Negative) 06/01/24 21:20 Urine Color Dark yellow (Yellow) A 06/01/24 21:20 Urine Appearance Clear (CLEAR) 06/01/24 21:20 Urine pH 6.0 (5-7) 06/01/24 21:20 Ur Specific Vanderbilt 1.031 (1.005-1.030) H 06/01/24 21:20 Urine Protein 2+ (Negative) A 06/01/24 21:20 Urine Glucose (UA) Negative (Normal) 06/01/24 21:20 Urine Ketones 1+ (Negative) H 06/01/24 21:20 Urine Blood Negative (Negative) 06/01/24 21:20 Urine Nitrate Negative (Negative) 06/01/24 21:20 Urine Bilirubin 1+ (Negative) H 06/01/24 21:20 Urine Urobilinogen 1.0 mg/dL (Negative) 06/01/24 21:20 Ur Leukocyte Esterase Trace (Negative) A 06/01/24 21:20 Urine RBC 0-4 /hpf (0-2) H 06/01/24 21:20 Urine WBC 0-4 /hpf (0-5) H 06/01/24 21:20 Ur Squamous Epith Cells 10-15 /hpf (0-5) H 06/01/24 21:20 Amorphous Sediment Not Reportable 06/01/24 21:20 Urine Bacteria Trace /hpf (NONE) 06/01/24 21:20 Urine Mucus 2+ /hpf 06/01/24 21:20 All radiology interpretation(s) finalized by discharge Discharge Plan Discharge Patient Disposition: Home Clinical Impression: Viral gastroenteritis, Dehydration Condition: Stable Prescriptions: New ondansetron HCl 4 mg tablet 4 mg PO Q8H Qty: 30 0RF No Action cetirizine [Zyrtec] 10 mg tablet 10 mg PO DAILY PRN (Reason: allergy symptoms) Qty: 30 0RF amoxicillin-pot clavulanate 875-125 mg tablet 1 tab PO BID 10 Days Qty: 20 0RF ferrous sulfate [iron] 325 mg (65 mg iron) Tablet 325 mg PO DAILY pantoprazole 40 mg tablet,delayed release (DR/EC) 40 mg PO DAILY Qty: 30 0RF Discharge Orders: Discharge ED (Routine); Ordered 06/01/24 Ordered By: Jarek Prasad Referrals: Lionel Rees MD [Primary Care Provider] - Patient Instructions: Dehydration (ED), Gastroenteritis (ED) Activity Restrictions/Additional Instructions: Zofran for nausea, please drink plenty of fluids at home for rehydration. Follow-up closely with primary care in the next couple of days as we discussed. Please return with any high fever, worsening abdominal pain, or any other concerns that you have. A respiratory panel is pending at this time, await results. Print Language: Czech Coding Level of Care Code ED [employer] for Marcella Chavez
[2024-06-01 20:55] VITALS: PULSE 92; RESP 16; O2SAT 98
[2024-06-01 21:18] LABS: Basophils % 0.3 %; Eosinophils # 0.1 10^3/uL (0.0-0.8); Hematocrit 43.7 % (36-47); Lymphocytes % 8.7 %; Mean Platelet Volume 9.7 fL (7.4-10.4); Monocytes # 0.5 10^3/uL (0.2-0.9); Monocytes % 4.4 %; Neutrophils # 9.87 10^3/uL (1.8-7.7); Neutrophils % 85.3 %; Nucleated Red Blood Cells % 0 %; Platelet Count 271 10^3/cmm (157-399); Red Blood Count 4.65 10^6/uL (3.85-5.65); Red Cell Distribution Width 11.9 % (12.1-15.1); White Blood Count 11.55 10^3/uL (3.29-11.43)
[2024-06-01 21:39] LABS: HCG Qualitative Urine. Negative (Negative)
[2024-06-01 21:41] LABS: Alanine Aminotransferase 20 U/L (0-33); Albumin Level 4.9 g/dL (3.5-5.2); Alkaline Phosphatase 82 U/L (35-105); Anion Gap 17.8 (5-19); Aspartate Amino Transferase 15 U/L (0-32); Blood Urea Nitrogen 9 mg/dL (6-20); Calcium 9.7 mg/dL (8.5-10.5); Carbon Dioxide 26 mmol/L (22-29); Chloride 100 mmol/L (98-107); Creatinine Clr Calc Pharmacy 127.9788; Globulin 3.2 g/dL (1.3-4.6); Glomerular Filtration Rate 116.6 mL/min (90-130); Glucose 118 mg/dL (65-115); Osmolality Calculated 290 mOsm/kg (285-295); Potassium 3.8 mmol/L (3.5-5.1); Sodium 140 mmol/L (136-145); Total Bilirubin 0.5 mg/dL (0.15-1.2); Total Protein 8.1 g/dL (6.6-8.7)
[2024-06-01 21:45] LABS: Bilirubin Urine 1+ (Negative); Blood Urine Negative (Negative); Glucose Urine UA Negative (Normal); Ketones Urine 1+ (Negative); Leukocyte Esterase Urine Trace (Negative); Nitrate Urine Negative (Negative); Protein Urine 2+ (Negative); Urine Appearance Clear (CLEAR); Urine Color Dark Yellow (Yellow)
[2024-06-01 22:13] LABS: Add Urine Microscopic? YES; Bacteria Urine TRACE /hpf; RBC Urine 0-4 /hpf (0-2); Specific Gravity, Urine 1.031 (1.005-1.030); UA Manual Slide Review YES; WBC Urine 0-4 /hpf (0-5)
[2024-06-01 22:14] LABS: Add Urine Culture? No; Mucus Urine 2+ /hpf
[2024-06-01 22:31] VITALS: BP 112/89; PULSE 93; RESP 18; O2SAT 99
[2024-06-01 22:51] VITALS: BP 110/79; PULSE 87; O2SAT 98
[2024-06-02 00:23] LABS: Adenovirus Not Detected (NOT DETECT); Chlamydia Pneumoniae Not Detected (NOT DETECT); Coronavirus 229E,HKU1,NL63,OC4 Not Detected (NOT DETECT); Human Metapneumovirus Not Detected (NOT DETECT); Human Rhinovirus/Enterovirus Not Detected (NOT DETECT); Influenza A Not Detected (NOT DETECT); Influenza A H1 Not Detected (NOT DETECT); Influenza A H1-2009 Not Detected (NOT DETECT); Influenza A H3 Not Detected (NOT DETECT); Influenza B Not Detected (NOT DETECT); Mycoplasma Pneumoniae Not Detected (NOT DETECT); Parainfluenza Virus Type 1 Not Detected (NOT DETECT); Parainfluenza Virus Type 2 Not Detected (NOT DETECT); Parainfluenza Virus Type 3 Not Detected (NOT DETECT); Parainfluenza Virus Type 4 Not Detected (NOT DETECT); Respiratory Syncytial Virus A Not Detected (NOT DETECT); Respiratory Syncytial Virus B Not Detected (NOT DETECT); SARS-COV-2 Not Detected (NOT DETECT)
== END 2024-06-01 22:52 | disposition home or self-care (01) ==
PROVIDERS: Emergency Provider Physician Assistant; PCP Family Medicine
DX: A08.4 Viral intestinal infection, unspecified (principal); E86.0 Dehydration
CPT/HCPCS: 36415; 71100; 80053; 81001; 81025; 85025; 87486; 87581; 87633; 99284

== ENCOUNTER → 2024-08-07 14:42 | Outpatient (BNVA) | payer MEDICAID, SELFPAY | PROVIDERS: PCP Family Medicine; Visit Provider Registered Nurse Neonatal Intensive Care | DX: J02.9 Acute pharyngitis, unspecified (principal) | CPT/HCPCS: 87071; 87880 ==